=== PATIENT | male | born 1965 | race Caucasian/White ===

== ENCOUNTER → 2017-05-11 13:22 | Day surgery (SDC) | payer BC, MEDICARE, SELFPAY ==
[2017-05-11 13:44] VITALS: BP 161/77; PULSE 81; RESP 18; TEMP 36.5; O2SAT 98; BMI 43.9
[2017-05-11 14:15] VITALS: BP 164/67; PULSE 66; RESP 18; O2SAT 97
[2017-05-11 14:18] VITALS: BP 161/77; PULSE 71; RESP 16; O2SAT 94
--- NOTE | 2017-05-11 14:34 | HMH.PMPROC ---
- Procedure Date: 05/11/17 Time: 14:34 Anesthesiologist:: Stone Cabello MD Complications:: None Pre-procedure Diagnosis:: Degenerative disc disease of lumbar spine with lumbar radiculopathy symptoms and postlaminectomy syndrome lumbar spine Post-procedure Diagnosis:: Same Indications for Procedure:: This patient is a pleasant 51-year-old white male who we are treating for low back pain with lumbar radiculopathy symptoms and postlaminectomy syndrome lumbar spine. He is still awaiting spinal cord stimulator placement by Dr. Broussard. Other than this he is having some increasing pain with cold weather however he is very happy with his intrathecal pain pump. We will increase him to 2.25 mg per day from 2 mg per day. He does have a normal gait. Motor strength of the lower extremities is 5/5. There is no gross sensory deficit. We will refill his pump and again increase him to 2.25 mg per day from 2 mg per day. Procedure Details:: Intrathecal pain pump refill under fluoroscopy Informed consent was obtained and the risks and benefits of the procedure was explained to the patient. The patient was taken to the procedure room. The pump was interrogated. The area over the pump was prepped using ChloraPrep. The pump was accessed with a 22-gauge needle using fluoroscopic guidance. Approximately 10 mL's of the intrathecal solution was withdrawn and discarded. The pump was then refilled with 20 mL's of intrathecal morphine 25 mg per ml. The pump was interrogated and the infusion was increased to 2.25 mg per day. . The patient tolerated the procedure well with no complication. Plan and Disposition:: We will follow-up with him at his next pump refill. If he has any problems or questions he is to call me back in the pain clinic.
[2017-05-11 14:40] VITALS: BP 181/87; PULSE 71; RESP 18; O2SAT 93
== END ==
PROVIDERS: Family Provider Family Medicine; PCP Family Medicine; Visit Provider Anesthesiology
DX: M51.16 Intervertebral disc disorders with radiculopathy, lumbar region (principal); M96.1 Postlaminectomy syndrome, not elsewhere classified
CPT/HCPCS: 62370

== ENCOUNTER → 2018-05-20 14:16 | Outpatient (CLI) | payer BC, MEDICARE, SELFPAY ==
--- NOTE | 2018-05-20 15:04 | MR_ITS ---
MR cervical spine wo con HISTORY: Neck pain with bilateral arm pain and numbness and tingling with headache ITS.REASON: CERVICAL PAIN ORDERING PHYSICIAN: Tiesha Green PATIENT AGE: 53 years Comparison: None TECHNIQUE: Standard multiplanar multiecho sequences are performed without contrast. FINDINGS: There is normal alignment. The craniocervical junction has an unremarkable appearance. The disc spaces are well-preserved. C2-C3, C3-C4, C4-C5, and C5-C6 have an unremarkable appearance. There is minimal bulging of the disc at C6-C7 level without any neural impingement. No disc herniation, canal stenosis or foraminal stenosis evident. IMPRESSION: Essentially negative MRI of the cervical spine
--- NOTE | 2018-05-20 15:18 | XR_ITS ---
XR abdomen min 2V HISTORY: ITS.REASON: MRI CLEARENCE ORDERING PHYSICIAN: Tiesha Green PATIENT AGE: 53 years COMPARISON: None FINDINGS: AP and lateral views the abdomen demonstrates reservoir in the left lower abdomen anteriorly representing a prominent with a catheter placed in the epidural region. The tip is above the L1 level. The top is not situated at a 90 degree angle to the longitudinal axis of the abdomen and therefore should be safe for MRI. There is also a neurostimulator device present right. There has been prior lumbar surgery with fusion at L4-L5 and S1. IMPRESSION: Pain pump present as described above which should be safe for MRI.
== END ==
PROVIDERS: PCP Family Medicine; Visit Provider Clinical Nurse Specialist Family Health
DX: Z01.818 Encounter for other preprocedural examination (principal); M54.2 Cervicalgia
CPT/HCPCS: 72141; 74019; 76376

== ENCOUNTER → 2018-07-30 09:08 | Outpatient (POV) | payer BC, MEDICARE, SELFPAY ==
[2018-07-30 09:23] VITALS: BP 181/88; PULSE 71; RESP 18; O2SAT 99; BMI 34.9
--- NOTE | 2018-07-30 09:31 | HMH.PAINSOAP ---
[facility] Pain Management SOAP Note Subjective:: Patient is a pleasant 53-year-old white male who presents today for follow-up. Patient having extreme left knee pain. Patient has tried and failed injective therapy. He is also had an arthroscopy. Patient is interested in options in regards to his knee. He would like to postpone any kind of surgery. He rates his pain a 7 out of 10 in his left knee. He states making it difficult for him to walk. Patient is continuing a home stretching program. ROS General: no recent weight change, no fever, no sleep disturbances Respiratory: no cough, no shortness of air, no recurring pulmonary infections Cardiovascular/Peripheral Vascular: No chest pain, No palpitations, no edema, no shortness of breath. Gastrointestinal: no incontinence, normal bowel movements reported Genitourinary: no incontinence Musculoskeletal: Back pain, hip pain, left knee pain Psychiatric: normal mood/ affect, Neurological: [denies weakness in extremities], [denies balance issues] Objective:: Physical Exam General: Alert and oriented x3, no acute distress, pleasant and cooperative, [on room air] Lungs: Resps E/U, Symmetrical chest expansion, Eyes: PERRL Musculoskeletal: Flexion and extension of lumbar spine somewhat guarded secondary to pain, deep tendon reflexes normal, strength in upper and lower extremities [5/5], [abnormal gait noted] crease range of motion left knee extreme tenderness on palpation Neurological: speech clear, well tester equal, no gross sensory deficits Assessment:: Degenerative disc disease lumbar spine with lumbar radiculopathy, left knee pain, osteoarthritis Plan:: We will set the patient up for a left geniculate block. I believe it would be beneficial for the patient. Patient has tried and failed intra-articular injections. Patient is wanting to postpone surgery as long as possible. He has had this pain for over a year and is failed over 6 months of conservative treatment for it. He is on anti-inflammatories. Dr. Cabello has reviewed this note and agrees with this plan of care. This note was dictated using voice recognition software and may contain errors or omissions
--- NOTE | 2018-07-30 09:35 | P.CONS_ITS ---
[facility] Pain Management SOAP Note Subjective:: Patient is a pleasant 53-year-old white male who presents today for follow-up. Patient having extreme left knee pain. Patient has tried and failed injective therapy. He is also had an arthroscopy. Patient is interested in options in regards to his knee. He would like to postpone any kind of surgery. He rates his pain a 7 out of 10 in his left knee. He states making it difficult for him to walk. Patient is continuing a home stretching program. ROS General: no recent weight change, no fever, no sleep disturbances Respiratory: no cough, no shortness of air, no recurring pulmonary infections Cardiovascular/Peripheral Vascular: No chest pain, No palpitations, no edema, no shortness of breath. Gastrointestinal: no incontinence, normal bowel movements reported Genitourinary: no incontinence Musculoskeletal: Back pain, hip pain, left knee pain Psychiatric: normal mood/ affect, Neurological: [denies weakness in extremities], [denies balance issues] Objective:: Physical Exam General: Alert and oriented x3, no acute distress, pleasant and cooperative, [on room air] Lungs: Resps E/U, Symmetrical chest expansion, Eyes: PERRL Musculoskeletal: Flexion and extension of lumbar spine somewhat guarded secondary to pain, deep tendon reflexes normal, strength in upper and lower extremities [5/5], [abnormal gait noted] crease range of motion left knee extreme tenderness on palpation Neurological: speech clear, 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 I believe it would be beneficial for the patient. Patient has tried and failed intra-articular injections. Patient is wanting to postpone surgery as long as possible. He has had this pain for over a year and is failed over 6 months of conservative treatment for it. He is on anti-inflammatories. Dr. Cabello has reviewed this note and agrees with this plan of care. This note was dictated using voice recognition software and may contain errors or omissions
== END ==
PROVIDERS: PCP Family Medicine; Visit Provider Clinical Nurse Specialist Family Health
DX: M51.16 Intervertebral disc disorders with radiculopathy, lumbar region (principal); M25.562 Pain in left knee; M19.90 Unspecified osteoarthritis, unspecified site
CPT/HCPCS: 99212

== ENCOUNTER → 2018-10-28 14:05 | Outpatient (POV) | payer BC, MEDICARE, SELFPAY ==
--- NOTE | 2018-10-28 14:42 | HMH.PAINSOAP ---
[facility] Pain Management SOAP Note Subjective:: Patient is a pleasant 53-year-old white male who presents today for follow-up. Patient is awaiting a left knee geniculate RFA. Patient had 90% relief of symptoms with a geniculate block. Pain is returning he is having severe pain in that knee rating it a 7 out of 10 today. He is tried and failed multiple therapies including steroid injections, intra-articular injections, physical therapy, home stretching program, anti-inflammatories. ROS General: no recent weight change, no fever, no sleep disturbances Respiratory: no cough, no shortness of air, no recurring pulmonary infections Cardiovascular/Peripheral Vascular: No chest pain, No palpitations, no edema, no shortness of breath. Gastrointestinal: no incontinence, normal bowel movements reported Genitourinary: no incontinence Musculoskeletal: Left knee pain Psychiatric: normal mood/ affect Neurological: [denies weakness in extremities], [denies balance issues] Objective:: Physical Exam General: Alert and oriented x3, no acute distress, pleasant and cooperative, [on room air] Lungs: Resps E/U, Symmetrical chest expansion, Eyes: PERRL Musculoskeletal: Flexion and extension left knee somewhat guarded secondary to pain, deep tendon reflexes normal, strength in upper and lower extremities [5/5], [abnormal gait noted] Neurological: speech clear, 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 We will also give him some samples of Voltaren gel for his knee. We will move forward with the RFA as soon as insurance approval allows. Dr. Cabello has reviewed this note and agrees with this plan of care. This note was dictated using voice recognition software and may contain errors or omissions
--- NOTE | 2018-10-28 14:46 | P.CONS_ITS ---
[facility] Pain Management SOAP Note Subjective:: Patient is a pleasant 53-year-old white male who presents today for follow-up. Patient is awaiting a left knee geniculate RFA. Patient had 90% relief of symptoms with a geniculate block. Pain is returning he is having severe pain in that knee rating it a 7 out of 10 today. He is tried and failed multiple therapies including steroid injections, intra-articular injections, physical therapy, home stretching program, anti-inflammatories. ROS General: no recent weight change, no fever, no sleep disturbances Respiratory: no cough, no shortness of air, no recurring pulmonary infections Cardiovascular/Peripheral Vascular: No chest pain, No palpitations, no edema, no shortness of breath. Gastrointestinal: no incontinence, normal bowel movements reported Genitourinary: no incontinence Musculoskeletal: Left knee pain Psychiatric: normal mood/ affect Neurological: [denies weakness in extremities], [denies balance issues] Objective:: Physical Exam General: Alert and oriented x3, no acute distress, pleasant and cooperative, [on room air] Lungs: Resps E/U, Symmetrical chest expansion, Eyes: PERRL Musculoskeletal: Flexion and extension left knee somewhat guarded secondary to pain, deep tendon reflexes normal, strength in upper and lower extremities [ 5/5], [abnormal gait noted] Neurological: speech clear, lgsw equal, no gross sensory deficits Assessment:: Left knee pain, osteoarthritis left knee Plan:: We will call in a Medrol Dosepak for the patient. We will also give him some samples of Voltaren gel for his knee. We will move forward with the RFA as soon as insurance approval allows. Dr. Cabello has reviewed this note and agrees with this plan of care. This note was dictated using voice recognition software and may contain errors or omissions
[2018-10-28 15:05] VITALS: BP 151/71; PULSE 76; RESP 18; O2SAT 98; BMI 33.0
== END ==
PROVIDERS: PCP Family Medicine; Visit Provider Clinical Nurse Specialist Family Health
DX: M17.12 Unilateral primary osteoarthritis, left knee (principal)
CPT/HCPCS: 99212

== ENCOUNTER → 2018-11-04 13:31 | Outpatient (POV) | payer BC, MEDICARE, SELFPAY ==
[2018-11-04 13:42] VITALS: BP 163/72; PULSE 95; RESP 20; O2SAT 98; BMI 33.7
--- NOTE | 2018-11-04 14:04 | HMH.PAINSOAP ---
[facility] Pain Management SOAP Note Subjective:: Patient is a pleasant 53-year-old white male who presents today for follow-up. Patient was awaiting a left knee geniculate RFA however he was denied due to his insurance deeming investigational. Patient has had 90% relief of symptoms with his geniculate block. He would like to repeat this. He does have an intrathecal pain pump and is doing well in regards to his low back pain however it is his knee that is most bothersome to him. He rates his pain today a 7 out of 10. He is utilizing Pennsaid and he states that that is beneficial. He is tried and failed multiple therapies including steroid injections, intra-articular injections, physical therapy, home stretching program, anti-inflammatories and medications. ROS General: no recent weight change, no fever, no sleep disturbances Respiratory: no cough, no shortness of air, no recurring pulmonary infections Cardiovascular/Peripheral Vascular: No chest pain, No palpitations, no edema, no shortness of breath. Gastrointestinal: no incontinence, normal bowel movements reported Genitourinary: no incontinence Musculoskeletal: Left knee pain Psychiatric: normal mood/ affect Neurological: [denies weakness in extremities], [denies balance issues] Objective:: Physical Exam General: Alert and oriented x3, no acute distress, pleasant and cooperative Lungs: Resps E/U, Symmetrical chest expansion, Eyes: PERRL Musculoskeletal: Flexion and extension of lumbar spine somewhat guarded secondary to pain, deep tendon reflexes normal, strength in upper and lower extremities [5/5], slightly antalgic gait noted, decreased range of motion left knee Neurological: speech clear, crook operator equal, no gross sensory deficits Assessment:: Left knee osteoarthritis, degenerative disc disease lumbar spine with lumbar radiculopathy Plan:: We will plan on a repeat left geniculate block given the efficacy of the first when I believe it would be beneficial. We will also continue the pen said on his left knee. If the patient does not get as much benefit from this block I do believe a orthopedic evaluation would be beneficial. Dr. Cabello has reviewed this note and agrees with this plan of care. This note was dictated using voice recognition software and may contain errors or omissions
--- NOTE | 2018-11-04 14:07 | P.CONS_ITS ---
[facility] Pain Management SOAP Note Subjective:: Patient is a pleasant 53-year-old white male who presents today for follow-up. Patient was awaiting a left knee geniculate RFA however he was denied due to his insurance deeming investigational. Patient has had 90% relief of symptoms with his geniculate block. He would like to repeat this. He does have an intrathecal pain pump and is doing well in regards to his low back pain however it is his knee that is most bothersome to him. He rates his pain today a 7 out of 10. He is utilizing Pennsaid and he states that that is beneficial. He is tried and failed multiple therapies including steroid injections, intra- articular injections, physical therapy, home stretching program, anti-inflammato britt and medications. ROS General: no recent weight change, no fever, no sleep disturbances Respiratory: no cough, no shortness of air, no recurring pulmonary infections Cardiovascular/Peripheral Vascular: No chest pain, No palpitations, no edema, no shortness of breath. Gastrointestinal: no incontinence, normal bowel movements reported Genitourinary: no incontinence Musculoskeletal: Left knee pain Psychiatric: normal mood/ affect Neurological: [denies weakness in extremities], [denies balance issues] Objective:: Physical Exam General: Alert and oriented x3, no acute distress, pleasant and cooperative Lungs: Resps E/U, Symmetrical chest expansion, Eyes: PERRL Musculoskeletal: Flexion and extension of lumbar spine somewhat guarded secondary to pain, deep tendon reflexes normal, strength in upper and lower extremities [5/5], slightly antalgic gait noted, decreased range of motion left knee Neurological: speech clear, housekeeper 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 We will also continue the pen said on his left knee. If the patient does not get as much benefit from this block I do believe a orthopedic evaluation would be beneficial. Dr. Cabello has reviewed this note and agrees with this plan of care. This note was dictated using voice recognition software and may contain errors or omissions
== END ==
PROVIDERS: PCP Family Medicine; Visit Provider Clinical Nurse Specialist Family Health
DX: M17.12 Unilateral primary osteoarthritis, left knee (principal); M51.16 Intervertebral disc disorders with radiculopathy, lumbar region
CPT/HCPCS: 99212

== ENCOUNTER → 2019-09-22 14:08 | Outpatient (POV) | payer BC, MEDICARE, SELFPAY ==
[2019-09-22 14:29] VITALS: BP 159/79; PULSE 98; RESP 18; TEMP 36.6; O2SAT 98; BMI 33.0
--- NOTE | 2019-09-22 15:09 | P.CONS_ITS ---
[facility] Pain Management SOAP Note Subjective:: Is a 54-year-old white male who presents today for discussion regards to his ongoing weakness of the bilateral lower extremities. Patient has difficulty standing and walking he finds himself having to lean over for relief. He has had lumbar surgery. He also has an intrathecal pain pump and a neurostimulator. He rates his pain 8 out of 10. He is unable to get a MRI. Patient and I discussed an epidurogram to help determine pathology. Patient and I did discuss briefly the mild procedure. ROS General: no recent weight change, no fever, no sleep disturbances Respiratory: no cough, no shortness of air, no recurring pulmonary infections Cardiovascular/Peripheral Vascular: No chest pain, No palpitations, no edema, no shortness of breath. Gastrointestinal: no new onset incontinence, normal bowel movements reported Genitourinary: no new onset incontinence Musculoskeletal: Back pain, leg pain Psychiatric: normal mood/ affect Neurological: Weakness in bilateral lower extremities while walking and standing, [denies new onset balance issues] Objective:: Physical Exam General: Alert and oriented x3, no acute distress, pleasant and cooperative, [on room air] Lungs: Resps E/U, Symmetrical chest expansion, Eyes: PERRL Musculoskeletal: Flexion and extension of lumbar spine somewhat guarded secondary to pain, deep tendon reflexes normal, strength in upper and lower extremities [5/5], [abnormal gait noted] Neurological: speech clear, medical staffing coordinator equal, no gross sensory deficits Assessment:: Degenerative disc disease lumbar spine lumbar radiculopathy, spinal stenosis with neurogenic claudication, postlaminectomy syndrome Plan:: We will set the patient up for a epidurogram to determine if he is a candidate for any spinal stenosis treatments that we offer. He is currently got an intrathecal pain pump and [employer] stimulator. He states both are working quite well. I will follow-up with him after his epidurogram reassess his symptoms at that time he has been instructed to call the office if he has any issues prior to next appointment. Dr. Cabello has reviewed this note and agrees with this plan of care. This note was dictated using voice recognition software and may contain errors or omissions [facility] History I have reviewed the patient's past medical history: Yes Medical History: Reports:: Diabetes Mellitus Type 2, Hyperlipidemia, Hypertension, Seizures Denies:: Cancer, Diabetes Mellitus Type 1, Internal Pacemaker, MRSA *Have you ever received a pneumonia vaccine?: Yes *Have you received a flu vaccine this season?: Yes Other Medical History: Denies: Blood Transfusion Reaction Other Surgeries: No: Pacemaker Amputation: No Fractures: No - *Social History Smoking Status: Former smoker Tobacco Type: cigarettes Alcohol Intake: never *Occupational Status:: other Housing: house Household Members: spouse *Travel in the last 8 weeks: None Family Hx:: Cancer, Diabetes, Heart Attack, Stroke
== END ==
PROVIDERS: PCP Family Medicine; Visit Provider Clinical Nurse Specialist Family Health
DX: M51.16 Intervertebral disc disorders with radiculopathy, lumbar region (principal); M48.062 Spinal stenosis, lumbar region with neurogenic claudication; M96.1 Postlaminectomy syndrome, not elsewhere classified
CPT/HCPCS: 99212

== ENCOUNTER 2019-10-03 09:47 | Day surgery (SDC) | payer BC, MEDICARE, SELFPAY ==
[2019-10-03 10:23] VITALS: BP 134/77; PULSE 98; RESP 18; TEMP 37; O2SAT 100; BMI 33.0
[2019-10-03 10:53] VITALS: BP 169/82; PULSE 95; RESP 18
[2019-10-03 10:54] VITALS: BP 168/89; PULSE 98; RESP 18; O2SAT 99
--- NOTE | 2019-10-03 11:02 | P.PCN_ITS ---
- Procedure Date: 10/03/19 Time: 11:02 Anesthesiologist:: Stone Cabello MD Complications:: None Pre-procedure Diagnosis:: Postlaminectomy syndrome lumbar spine with lumbar radiculopathy symptoms. Spinal stenosis with neurogenic claudication symptoms Post-procedure Diagnosis:: Same Indications for Procedure:: Patient is a pleasant 54-year-old white male who we are treating for low back p ain with lumbar radicular symptoms. He does have hardware in his lower lumbar area. He also has a spinal cord stimulator [employer] which is been put in by Dr. Broussard. He also has an intrathecal pain pump. He does well with his pain pump. His stimulator has not been reprogrammed in 2 years. He was doing very well up until recently where he now has some increasing pain down his legs while standing or walking and cannot walk very well. Procedure Details:: Informed consent was obtained and the risk and benefits of the procedure was explained to the patient. The patient was taken to the procedure room. The patient was placed prone on the procedure table. The patient was prepped and draped in sterile fashion. C-arm fluoroscopy was used to view the lumbar spine. Skin and subcutaneous tissues were anesthetized using lidocaine. I placed an 18-gauge epidural needle and advanced into the L2-L3 interspace using fluoroscopic guidance and [id number] to air. After confirmation of needle placement in the epidural space with dye I injected 2 mL of lidocaine 1.5% with Depo-Medrol 80 mg. Patient tolerated the procedure well with no complications. Plan and Disposition:: We did do an epidurogram and he is not a candidate for minimally invasive lumbar decompression because of his previous surgery, hardware and disruption of the lamina. He also has spinal cord stimulator in place as well as intrathecal pain pump which would make it difficult to perform the procedure. Since he has not had his stimulator reprogrammed and over 2 years I believe he would benefit from reprogram his stimulator along with epidural steroid injections to help him with his pain symptoms and neurogenic claudication symptoms.
[2019-10-03 11:05] VITALS: BP 152/87; PULSE 89; RESP 18; O2SAT 100
== END 2019-10-03 11:05 | disposition home or self-care (01) ==
LOC: SC.PAINP 09:50
PROVIDERS: PCP Family Medicine; Visit Provider Anesthesiology
DX: M96.1 Postlaminectomy syndrome, not elsewhere classified (principal); M54.16 Radiculopathy, lumbar region; M48.062 Spinal stenosis, lumbar region with neurogenic claudication; I10 Essential (primary) hypertension; F41.9 Anxiety disorder, unspecified; F32.9 Major depressive disorder, single episode, unspecified; Z87.891 Personal history of nicotine dependence; Z96.652 Presence of left artificial knee joint; Z88.0 Allergy status to penicillin; Z79.82 Long term (current) use of aspirin; Z79.899 Other long term (current) drug therapy
CPT/HCPCS: 62323; J1040; Q9966

== ENCOUNTER 2019-10-20 13:09 | Day surgery (SDC) | payer BC, MEDICARE, SELFPAY ==
[2019-10-20 13:26] VITALS: BP 200/105; PULSE 76; RESP 18; TEMP 37; O2SAT 96; BMI 33.0
--- NOTE | 2019-10-20 13:34 | P.PCN_ITS ---
- Procedure Date: 10/20/19 Time: 13:34 Anesthesiologist:: Tiesha Green APRN Complications:: None Pre-procedure Diagnosis:: Degenerative disc disease lumbar spine lumbar radiculopathy postlaminectomy syndrome spinal stenosis with neurogenic claudication Post-procedure Diagnosis:: Same Indications for Procedure:: Patient is a pleasant 54-year-old white male who presents today for intrathecal pain pump refill and reprogram. He is also meeting today the [employer] environmental marketing representative for his neurostimulator reprogram. [facility] #[id number] reviewed and appropriate. Patient is getting a drug screen today. We will move forward with his intrathecal pain pump refill. He rates his pain today a 6 out of 10. Worse when standing and walking. Physical Exam General: Alert and oriented x3, no acute distress, pleasant and cooperative, [on room air] Lungs: Resps E/U, Symmetrical chest expansion, Eyes: PERRL Musculoskeletal: Flexion and extension of lumbar spine somewhat guarded secon roldan to pain, deep tendon reflexes normal, strength in upper and lower extremities [5/5], [abnormal gait noted] Neurological: speech clear, surgical corsetier equal, no gross sensory deficits Procedure Details:: Informed consent was obtained and the risk and benefits of the procedure were explained to the patient. The patient was taken to the procedure room where noninvasive monitoring was placed including noninvasive blood pressure cuff and pulse oximeter. Patient's pump was interrogated. The area over the pump was cleansed with chlorhexidine as a cleansing solution. In sterile fashion the pump was accessed with a 22-gauge needle. Approximately 10 mL's were removed of the pump solution and discarded appropriately. The pump was then refilled with 20 mL's of morphine 25 mg/mL. The needle was withdrawn and a bandage was placed over the puncture site. The infusion rate was reprogrammed to continue at 2.5 mg/day. The patient tolerated the procedure well. Plan and Disposition:: Patient is to be reprogrammed today by the [employer] environmental marketing representative for his neurostimulator. Follow-up with him at his next intrathecal pain pump refill and reprogram he has been instructed to call the office if he has any issues prior to his next appointment. Dr. Cabello has reviewed this note and agrees with this plan of care. This note was dictated using voice recognition software and may contain errors or omissions
[2019-10-20 13:44] VITALS: BP 165/98; PULSE 77; RESP 18
[2019-10-20 13:45] VITALS: BP 172/92; PULSE 71; RESP 18; O2SAT 99
[2019-10-20 14:11] VITALS: BP 170/90; PULSE 75; RESP 18; O2SAT 96
== END 2019-10-20 14:12 | disposition home or self-care (01) ==
LOC: SC.PAINP 13:17
PROVIDERS: PCP Family Medicine; Visit Provider Clinical Nurse Specialist Family Health
DX: M51.16 Intervertebral disc disorders with radiculopathy, lumbar region (principal); M96.1 Postlaminectomy syndrome, not elsewhere classified; M48.062 Spinal stenosis, lumbar region with neurogenic claudication; E78.5 Hyperlipidemia, unspecified; K21.9 Gastro-esophageal reflux disease without esophagitis; E03.9 Hypothyroidism, unspecified; Z88.0 Allergy status to penicillin; Z79.82 Long term (current) use of aspirin; Z79.899 Other long term (current) drug therapy
CPT/HCPCS: 95991

== ENCOUNTER 2020-02-02 12:59 | Day surgery (SDC) | payer BC, MEDICARE, SELFPAY ==
[2020-02-02 13:17] VITALS: BP 179/80; PULSE 77; RESP 18; TEMP 36.4; O2SAT 97; BMI 33.0
[2020-02-02 13:23] VITALS: BP 182/74; PULSE 80; RESP 18; O2SAT 98
[2020-02-02 13:37] VITALS: BP 175/88; PULSE 76; PULSE 77; RESP 18; O2SAT 98
--- NOTE | 2020-02-02 13:42 | P.PCN_ITS ---
- Procedure Date: 02/02/20 Time: 13:42 Anesthesiologist:: Tiesha Green APRN Complications:: None Pre-procedure Diagnosis:: Degenerative disc disease lumbar spine lumbar radiculopathy postlaminectomy syndrome and spinal stenosis with neurogenic claudication Post-procedure Diagnosis:: Same Indications for Procedure:: Patient is a pleasant 54-year-old white male who presents today for intrathecal pain pump refill and reprogram. Patient also has a neurostimulator. Dlalas #[id number] appropriate. Patient has had appropriate drug screens. He rates his pain today a 5 out of 10. 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 The patient was taken to the procedure room where noninvasive monitoring was placed including noninvasive blood pressure cuff and pulse oximeter. Patient's pump was interrogated. The area over the pump was cleansed with chlorhexidine as a cleansing solution. In sterile fashion the pump was accessed with a 22-gauge needle. Approximately 10 mL's were removed of the pump solution and discarded appropriately. The pump was then refilled with 20 mL's of morphine 25 mg/mL. The needle was withdrawn and a bandage was placed over the puncture site. The infusion rate was reprogrammed to continued at 2.5 mg/day. The patient tolerated the procedure well. Plan and Disposition:: he would also like to move forward with lumbar epidural steroid injections. He has had this in the past with good relief. He is not on any anticoagulation therapy. I will follow-up with him after this reassess his symptoms at that time he has been instructed to call the office if he has any issues prior to his next appointment. Dr. Cabello has reviewed this note and agrees with this plan of care. This note was dictated using voice recognition software and may contain errors or omissions
[2020-02-02 13:53] VITALS: BP 158/81; PULSE 79; RESP 18; O2SAT 97
== END 2020-02-02 13:54 | disposition home or self-care (01) ==
LOC: SC.PAINP 13:02
PROVIDERS: PCP Family Medicine; Visit Provider Clinical Nurse Specialist Family Health
DX: M48.062 Spinal stenosis, lumbar region with neurogenic claudication (principal); M51.16 Intervertebral disc disorders with radiculopathy, lumbar region; M96.1 Postlaminectomy syndrome, not elsewhere classified; Z45.1 Encounter for adjustment and management of infusion pump; I10 Essential (primary) hypertension; K21.9 Gastro-esophageal reflux disease without esophagitis; E07.9 Disorder of thyroid, unspecified
CPT/HCPCS: 95991

== ENCOUNTER 2020-04-09 05:41 | Emergency (ER) | payer BC, MEDICARE, SELFPAY ==
[2020-04-09 05:42] VITALS: BP 174/82; PULSE 74; RESP 16; TEMP 37.6; O2SAT 96; BMI 35.4
--- NOTE | 2020-04-09 05:58 | HMH.EDGENADL ---
ED Disposition Condition on Discharge: Good - Critical Care Critical Care Time: No <ShantegiselleKody - Last Filed: 04/09/20 08:07> <Phillip Mcnair - Last Filed: 04/09/20 10:12> Clinical Impression: Taste sense altered, Confusion Abdominal pain Qualifiers: Abdominal location: generalized Qualified Code(s): R10.84 - Generalized abdominal pain Diarrhea Qualifiers: Diarrhea type: unspecified type Qualified Code(s): R19.7 - Diarrhea, unspecified Disposition: Still a Patient Prescriptions: Oxycodone HCl/Acetaminophen [Percocet 10-325 mg Tablet] 1 tab PO Q4H PRN #40 tab PRN Reason: Mild To Moderate Pain [id number] diaze[facility] [Valium 5mg tablets] 5 mg PO TID PRN #20 tablet PRN Reason: Anxiety Transmission Status: Received by [id number] Referrals: Ronn Garcia [Primary Care Provider] - Attestation: On 04/09/20, the high probability of a clinically significant, sudden or life threatening deterioration of the following system(s) required my full and direct attention, intervention and personal management. The time I documented below is in addition to time spent performing reported procedures but includes the following listed in this critical care notation. Medical Decision Making - Medical Records Medical records reviewed: Yes: I reviewed the patient's medical records. MR Comment: The patient's last pain management visit was 02/04/2020, at which time he had his intrathecal pain pump refilled. - [place] Inquiry Pt receiving controlled substance: No - Lab Data Result diagrams: 04/09/20 06:13 04/09/20 06:13 - Radiology Data #1 Image(s): Chest Image Reviewed: Yes I reviewed the patient's radiology image Preliminary Findings: Normal/NAD - Physician Consults Physician Consulted: Bux Time: 07:17 Reason -: Pt condition, Other (Pain Mgmt) Comment/Response: States the only time he has seen patients with pain pumps get metallic taste in the mouth is if they are in withdrawal. He does not think the pump should leak for any reason and patient is not due for pump refill until May. Agrees with [employer] rep checking the pump. Also suggest that the patient be given a dose of pain medicine here to see if his symptoms improve, which would support withdrawal. <Kody Boggs - Last Filed: 04/09/20 08:07> - Lab Data Result diagrams: 04/09/20 06:13 04/09/20 06:13 <Phillip Mcnair - Last Filed: 04/09/20 10:12> Vital Signs: 04/09/20 05:42 04/09/20 06:00 04/09/20 06:30 Temperature 99.6 F Temperature Source Oral Pulse Rate [Left Radial] 74 97 H 94 H Respiratory Rate 16 14 12 Blood Pressure [Right Arm] 174/82 H 175/95 H 174/89 H Blood Pressure Mean [Right Arm] 112 121 117 Blood Pressure Source [Right Arm] Automatic Cuff Automatic Cuff Automatic Cuff Blood Pressure Position [Right Arm] Sitting Supine Supine 02 Sat by Pulse Oximetry 96 97 97 Oxygen Delivery Method Room Air Room Air Room Air 04/09/20 07:53 04/09/20 08:56 Temperature Temperature Source Pulse Rate [Left Radial] 76 76 Respiratory Rate 18 18 Blood Pressure [Right Arm] 154/66 H 161/81 H Blood Pressure Mean [Right Arm] 95 107 Blood Pressure Source [Right Arm] Automatic Cuff Automatic Cuff Blood Pressure Position [Right Arm] Sitting Sitting 02 Sat by Pulse Oximetry 96 97 Oxygen Delivery Method - Lab Data Lab Results 04/09/20 06:13: Urine Color Yellow, Urine Appearance Clear, Urine pH 8.5, Ur Specific [place] 1.015, Urine Protein Negative, Urine Glucose (UA) Negative, Urine Ketones Negative, Urine Blood Negative, Urine Nitrate Negative, Urine Bilirubin Negative, Urine Urobilinogen 0.2, Ur Leukocyte Esterase Negative, Urine WBC Occasional 04/09/20 06:13: WBC 8.3, RBC 4.88, Hgb 13.8 L, Hct 42.5, MCV 87.0, MCH 28.3, MCHC 32.5, RDW 15.5, Plt Count 281, MPV 7.4, Neut % (Auto) 81.1 H, Lymph % (Auto) 14.4, [place] % (Auto) 3.4, Eos % (Auto) 0.7, Baso % (Auto) 0.4, Neut # (Auto) 6.7,
[2020-04-09 06:00] VITALS: BP 175/95; PULSE 97; RESP 14; O2SAT 97
--- NOTE | 2020-04-09 06:17 | XR_ITS ---
PROCEDURE: XR CHEST PORTABLE Referring Doctor: NimaKody vasques Patient Age:55Y CLINICAL HISTORY: AMS Altered mental status. Abdominal pain. Pain at pump COMPARISON: CT CT ABDOMEN PELVIS W CON from 04/09/2020 FINDINGS: AP portable upright chest no previous chest films for comparison The lungs are well expanded and clear with nothing definitely acute.. Mild chronic changes bilaterally. Underlying emphysematous changes with scattered blebs as seen best on CT abdomen which includes lung bases today Heart upper normal in size borderline cardiomegaly. Upper normal point vascularity.. Kathi and mediastinal structures satisfactory. The lungs are clear. No consolidation, suspicious nodules, or pleural effusions.. No acute bony abnormalities. Neurostimulator device noted mid to lower T-spine posterior to T7-8-9 level at T-spine IMPRESSION: Nothing definitely acute. Upper normal pulmonary vascularity. Heart upper normal size/borderline cardiomegaly on this AP chest Dictated by: Orlando Echevarria MD 04/09/2020 09:48 Orlando Echevarria MD in [place] 04/09/2020 09:48
--- NOTE | 2020-04-09 06:18 | PC.NURSE ---
attempted to page Dr. Cabello. Elza in registration stated that she only has an office number for Dr. Cabello and not a call/ home number to reach him.
--- NOTE | 2020-04-09 06:20 | CT_ITS ---
PROCEDURE: CT HEAD/BRAIN WO CON Referring Doctor: Kody Boggs Patient Age:55Y CLINICAL INDICATION: AMS. Memory loss Altered mental status COMPARISON: CT CT ABDOMEN PELVIS W CON from 04/09/2020 TECHNIQUE: The patient was was active/moving and thus a Helical/spiral CT head performed with axial sagittal and coronal reconstructions on CT workstation. [address] scans at the facility use one or more dose reduction, viz: automated exposure control, ma/kV adjustment per patient size (including targeted exams where dose is matched to indication, i.e. head), or iterative reconstruction technique. FINDINGS: No acute intracranial findings. No intracranial hemorrhage. No territorial infarct but no extra-axial or subdural collection. . There is diffuse cerebral atrophy. Very subtle low-density and deep white matter cerebral hemispheres of suggestive of minor chronic small vessel deep white-matter ischemic gliotic changes with these features slightly more evident the anterior left cerebral hemisphere. No hydrocephalus.The ventricles and basal cisterns appear clear and satisfactory. No mass or midline shift nor mass effect. No subdural or extra-axial fluid collection is evident. Posterior fossa unremarkable.. Normal cranial cervical junction region. Sella normal size in appearance Skull intact-satisfactory. Scalp unremarkable. Nomastoid effusions. Mastoid air cells are well developed and clear. Middle ear clear. IAC's symmetric. Nosinus air-fluid level. Visualized portions of the paranasal sinuses and orbits unremarkable. IMPRESSION: No acute intracranial findings No hemorrhage nor mass lesion or acute infarct evident Mild cerebral atrophy. Suggestion of subtle chronic small vessel deep white-matter ischemic gliotic changes, slightly more evident at left cerebral hemisphere. Dictated by: Orlando Echevarria MD 04/09/2020 09:43 Orlando Echevarria MD in [place] 04/09/2020 09:43
--- NOTE | 2020-04-09 06:20 | CT_ITS ---
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 All CT scans at the facility use one or more dose reduction, viz: automated exposure control, ma/kV adjustment per patient size (including targeted exams where dose is matched to indication, i.e. head), or iterative reconstruction technique. FINDINGS: Lower thorax: No acute finding ABDOMEN: Liver: No masses or biliary dilatation. Fatty changes throughout liver Gallbladder: Nondistended. No definitive radio opaque stones. There is a small tiara of density seen towards the neck of gallbladder axial image 40 which could reflect tiny stone or sludge. Common duct normal Pancreas: No masses or peripancreatic fluid collections. Spleen: Upper normal size. 12.5 cm in length. There is a heterogeneous area posterior aspect of the spleen which is curious. Axial image 27. In conjunction with the low-density area at the liver a could reflect a splenic infarct.. Small underlying cyst or old infarct considered. No history nor CT evidence of significant trauma thus unlikely small splenic laceration. However pain should the progress it in this region of follow-up CT would be a recommended Adrenals: unremarkable ---- tract Right kidney normal unremarkable Left kidney. Area of decreased density extending to lateral periphery mid left kidney.. Given its somewhat wedge-shaped reflect a small focal area of decreased perfusion and small infarct; although of versus is a debris-filled cyst in this you could yield similar appearance,. This area measure up to 2.5 cm.. Minimal vascular calcifications left renal artery. ureters: Unremarkable Bladder: Upper normal wall thickness anteriorly; normal sized prostate . Appendix: Unremarkable. No period. ABDOMEN & PELVIS: Stomach bowel: Nondistended. No obvious mass or significant thickening. Large bowel: Scattered diverticula most evident at sigmoid colon but no diverticulitis Appendix normal terminal ileum unremarkable Peritoneum: No abnormal fluid collections. No obvious inflammatory changes. No free air. Lymph nodes: No enlarged lymph nodes apparent. Vasculature: Diffuse moderate atherosclerotic calcification aorta and iliacs. No aneurysmal dilatation.. Bones: No acute fracture or lesion. Posterior spinal fusion with bilateral pedicle screws and posterior rods at L4-L5-S1 with associated laminectomy through the L4/5-L5/S1 the levels. The metallic elements yield prominent streak artifact limit visualization but I would note exuberant facet hypertrophy a at at L3/4 yielding and a moderate spinal stenosis this level.. There are 2 pain control devices with the epidural leads extending into the thoracic spine. The larger devices projected over the left iliac crest and a smaller device overlying the back at approximate L2/3 level IMPRESSION: 1..Left kidney: Wedge-shaped low-density area extends to the midportion left kidney may reflect a small infarct. 2..Spleen--inhomogeneous area posteriorly which could also reflect a small infarct, with other possibilities discussed in text. If persistent/progressive pain in this area follow-up CT suggested particularly if there has been trauma (This feature was not mentioned on [facility] report) 3..Gallbladder. Tiara of density at neck of gallbladder could reflect tiny stone. 4..No additional acute findings otherwise abdomen or pelvis 5..
[2020-04-09 06:25] LABS: Microscopic, Urine URINE MICROSCOPIC (MICROSCOPIC)
[2020-04-09 06:28] LABS: Basophils % 0.4 % (0.1-2.0); Eosinophils # 0.1 K/mm3 (0.0-0.4); Eosinophils % 0.7 % (0.1-12.0); Hematocrit 42.5 % (42.0-52.0); Hemoglobin 13.8 g/dL (14.1-18.0); Lymphocytes # 1.2 K/mm3 (0.7-4.5); Lymphocytes % 14.4 % (10-50); Mean Corpuscular HGB Conc 32.5 g/dL (31.8-35.4); Mean Corpuscular Hemoglobin 28.3 pg (27.0-31.2); Mean Platelet Volume 7.4 fl (7.4-10.4); Monocytes # 0.3 K/mm3 (0.1-1.0); Monocytes % 3.4 % (1.7-9.3); Neutrophils # 6.7 K/mm3 (1.8-7.8); Neutrophils % 81.1 % (37.0-80.0); Platelet Count 281 K/mm3 (142-424); Red Blood Count 4.88 M/mm3 (4.60-6.20); Red Cell Distribution Width 15.5 % (11.5-17.5); White Blood Count 8.3 K/mm3 (4.8-10.8)
[2020-04-09 06:30] VITALS: BP 174/89; PULSE 94; RESP 12; O2SAT 97
--- NOTE | 2020-04-09 06:31 | PC.NURSE ---
this nurse paged [employer] per pts and MD request. spoke with [employer] who stated they would put a page out for their local credit resolution representative to come service the device and if we didnt hear back from them in an hour to call back for a follow up page
[2020-04-09 06:32] LABS: Chloride 102 mmol/L (98-107); Sodium 140 mmol/L (136-145)
--- NOTE | 2020-04-09 06:32 | PC.NURSE ---
Pt ambulated to bathroom with standby assist. No bm at this time.
[2020-04-09 06:33] LABS: Appearance,Urine CLEAR (Clear); Bilirubin,Urine Negative (Negative); Blood, Urine Negative (Negative); Color,Urine YELLOW (Yellow); Glucose,Urine (UA) Negative (Negative); Ketones,Urine Negative (Negative); Leukocyte Esterase,Urine Negative (Negative); Nitrate,Urine Negative (Negative); PH,Urine 8.5 (5.0-8.5); Potassium 4.1 mmoL/L (3.5-5.1); Protein,Urine Negative (Negative); Specific Gravity, Urine 1.015 (1.005-1.030); Urobilinogen,Urine 0.2 EU/dl (0.2)
[2020-04-09 06:35] LABS: Alanine Aminotransferase 67 U/L (12-78); Albumin Level 4.7 g/dl (3.5-5.0); Albumin/Globulin Ratio 1.2 (1.1-1.8); Alkaline Phosphatase 98 U/L (38-126); Anion Gap 14.1 mEq/L (5-15); Aspartate Amino Transferase 75 U/L (17-59); Bilirubin,Total 0.8 mg/dl (0.2-1.3); Blood Urea Nitrogen 9 mg/dl (9-20); Calcium 10.2 mg/dl (8.4-10.2); Carbon Dioxide 28 mmol/L (22.0-30.0); Creatinine Clearance Estimated 209 mL/min (50-200); Estimated Glomerular Filt Rate 139 ml/min (>60); GFR (African American) 168 ML/MIN (>60); Globulin 3.8 g/dL (1.3-3.2); Glucose 223 mg/dl (74-100); Lipase 73 U/L (23-300); Total Protein,Serum 8.5 g/dl (6.3-8.2)
--- NOTE | 2020-04-09 06:36 | ECG_ITS ---
APPROVED REPORT Exam: Resting ECG HR:68 bpm ECG Measurements Heart Rate 68 AXES FL 174 P 72 QRSd 102 QRS 65 QT 388 T 18 QTc 412 Conclusion Normal sinus rhythm Normal ECG Electronically signed by : Ranjit Cade, 04/09/2020 19:35:13
[2020-04-09 06:40] LABS: Ethyl Alcohol < 10 mg/dl (0-10)
[2020-04-09 06:42] LABS: WBC,Urine Occasional #/hpf (0-3)
[2020-04-09 06:43] LABS: Barbiturates Screen,Urine Negative ng/ml (<200)
[2020-04-09 06:44] LABS: Amphetamine/Metha Screen,Urine Negative ng/ml (<1000); Benzodiazepines Screen,Urine Negative ng/ml (<200)
[2020-04-09 06:45] LABS: Cannabinoid Screen,Urine Negative ng/ml (<50)
[2020-04-09 06:46] LABS: Cocaine Screen,Urine Negative ng/ml (<300); Methadone Screen,Urine Negative ng/ml (<300)
[2020-04-09 06:47] LABS: Opiate Screen,Urine Positive ng/ml (<300)
[2020-04-09 06:48] LABS: Phencyclidine Screen,Urine Negative ng/ml (<25)
[2020-04-09 06:51] LABS: Troponin I < 0.01 ng/ml (0.00-0.034)
[2020-04-09 06:53] LABS: Coronavirus 19 IgG Antibody Negative (Negative); Coronavirus 19 IgM Antibody Negative (Negative)
--- NOTE | 2020-04-09 06:54 | PC.NURSE ---
pt to RAD
[2020-04-09 07:00] LABS: Lactic Acid 1.7 mmol/L (0.7-2.1)
--- NOTE | 2020-04-09 07:05 | PC.NURSE ---
speaking with Dr. Cabello
[2020-04-09 07:06] LABS: Thyroid Stimulating Hormone 0.49 uIU/mL (0.465-4.68)
--- NOTE | 2020-04-09 07:41 | PC.NURSE ---
rep. from [employer] returned call, she will call a rep. to come interrogate pain pump
[2020-04-09 07:53] VITALS: BP 154/66; PULSE 76; RESP 18; O2SAT 96
--- NOTE | 2020-04-09 07:57 | PC.NURSE ---
pt denies any change in symptoms with medications given
--- NOTE | 2020-04-09 08:52 | PC.NURSE ---
dr hina denney office at pt bedside
[2020-04-09 08:56] VITALS: BP 161/81; PULSE 76; RESP 18; O2SAT 97
--- NOTE | 2020-04-09 09:31 | PC.NURSE ---
sabrina from dr. santamaria office called, stating the [employer] rep is on their way to the hospital now.
--- NOTE | 2020-04-09 09:42 | PC.NURSE ---
PT C/O INCREASING PAIN. PT AND UPSET DUE TO PT'S LACK OF PAIN CONTROL AND WAIT TIME
--- NOTE | 2020-04-09 10:25 | PC.NURSE ---
[employer] AT BEDSIDE
[2020-04-09 10:31] LABS: Adenovirus F 40/41, stool Not Detected (NotDetected); Astrovirus Not Detected (NotDetected); Campylobacter Not Detected (NotDetected); Clostridium Difficile A/B, PCR Not Detected (NotDetected); Cryptosporidium Not Detected (NotDetected); Cyclospora Cayetanesis Not Detected (NotDetected); Entamoeba histolytica Not Detected (NotDetected); Enteroaggregative E coli Not Detected (NotDetected); Enteropathogenic E coli Not Detected (NotDetected); Enterotoxigenic E coli Not Detected (NotDetected); Giardia lamblia Not Detected (NotDetected); Norovirus Not Detected (NotDetected); Plesimonas Shigalloides, PCR Not Detected (NotDetected); Rotavirus A Not Detected (NotDetected); Salmonella, PCR Not Detected (NotDetected); Sapovirus Not Detected (NotDetected); Shiga-like toxin E coli Not Detected (NotDetected); Shigella Enterovasive E coli Not Detected (NotDetected); Vibrio Cholerae Not Detected (NotDetected); Vibrio, PCR Not Detected (NotDetected); Yersinia Entercolitica, PCR Not Detected (NotDetected)
[2020-04-09 10:48] LABS: Troponin I < 0.01 ng/ml (0.00-0.034)
[2020-04-09 10:55] VITALS: BP 154/98; PULSE 78; RESP 18; TEMP 36.6; O2SAT 98
[2020-04-12 06:54] LABS: POC Glucose,Bedside 202 (70-110)
== END 2020-04-09 10:57 | disposition still patient (30) ==
PROVIDERS: Emergency Provider Emergency Medicine; PCP Family Medicine
DX: R10.84 Generalized abdominal pain (principal); R41.0 Disorientation, unspecified; R43.2 Parageusia; R19.7 Diarrhea, unspecified; M54.5 Low back pain; Z01.84 Encounter for antibody response examination; E03.9 Hypothyroidism, unspecified; E78.5 Hyperlipidemia, unspecified; I10 Essential (primary) hypertension; Z88.0 Allergy status to penicillin; Z87.891 Personal history of nicotine dependence; Z79.899 Other long term (current) drug therapy
CPT/HCPCS: 36415; 70450; 71045; 74177; 80053; 80305; 81001; 82962; 83605; 83690; 84443; 84484; 85025; 86328; 87040; 87506; 93005; 96374; 96375; 99284; J2405; Q9967

== ENCOUNTER → 2020-04-23 09:27 | Outpatient (POV) | payer BC, MEDICARE, SELFPAY ==
--- NOTE | 2020-04-23 10:16 | PC.NURSE ---
0959-pt transfered to ER via w/c for c/o chest pain and left arm pain. accompanied by nursing staff and spouse.
[2020-04-23 14:00] VITALS: BP 152/79; PULSE 97; RESP 18; TEMP 36.8; O2SAT 97
--- NOTE | 2020-04-23 14:52 | HMH.PMPROC ---
- Procedure Date: 04/23/20 Time: 14:53 Anesthesiologist:: Stone Cabello MD Complications:: None Pre-procedure Diagnosis:: Postlaminectomy syndrome lumbar spine with lumbar radiculopathy symptoms with newly placed intrathecal pain pump Post-procedure Diagnosis:: Same Indications for Procedure:: Patient is a pleasant 55-year-old white male who we are treating for low back pain with lumbar radiculopathy symptoms and postlaminectomy syndrome lumbar spine. Patient has a nonfunctioning intrathecal [employer] pain pump system. This was replaced yesterday with a [employer] pain pump system. Patient still is having some withdrawal type symptoms. We will increase his intrathecal morphine infusion today. We will also increase his PTC boluses. Patient did have chest pain when he came in this morning. He was evaluated and cleared by the emergency room. Procedure Details:: Informed consent was obtained and the risk and benefits of the procedure was explained to the patient. Patient was taken to the procedure room. The pump was interrogated. Intrathecal morphine infusion was increased to 2 mg/day. PTC boluses were increased to 0.5 mg up to 4 times a day. Patient tolerated the procedure well with no complications. Plan and Disposition:: We will follow-up with this patient in 1 week. Will reevaluate his symptoms and make further adjustments if needed.
== END ==
PROVIDERS: PCP Family Medicine; Visit Provider Anesthesiology
DX: M96.1 Postlaminectomy syndrome, not elsewhere classified (principal); M54.16 Radiculopathy, lumbar region; Z96.9 Presence of functional implant, unspecified; Z88.0 Allergy status to penicillin; Z79.82 Long term (current) use of aspirin; Z79.899 Other long term (current) drug therapy
CPT/HCPCS: 62368

== ENCOUNTER 2020-04-23 10:01 | Emergency (ER) | payer BC, MEDICARE, SELFPAY ==
[2020-04-23] VITALS (9 sets, daily range): BP systolic 130–167; BP diastolic 69–93; PULSE 84–120; RESP 11–19; TEMP 36.8; O2SAT 94–100; BMI 30.1
--- NOTE | 2020-04-23 10:01 | ECG_ITS ---
APPROVED REPORT Exam: Resting ECG HR:92 bpm ECG Measurements Heart Rate 92 AXES MS 174 P 67 QRSd 102 QRS -47 QT 370 T 22 QTc 457 Conclusion Normal sinus rhythm Left axis deviation old isolated q in iii old late r wave progression Abnormal ECG Electronically signed by : Ranjit Cade, 04/23/2020 16:34:33
--- NOTE | 2020-04-23 10:07 | XR_ITS ---
PROCEDURE: XR CHEST 2V CLINICAL HISTORY: pain COMPARISON: CT CT ABDOMEN PELVIS W CON from 04/09/2020 CR XR CHEST PORTABLE from 04/09/2020 FINDINGS: The cardiomediastinal silhouette and pulmonary vascularity are within normal limits. COPD changes. No lobar consolidation or collapse. There is an epidural stimulator device over the midthoracic spine. No acute bony abnormalities. IMPRESSION: COPD. No change with no acute finding Dictated by: Kristian Cuevas MD 04/23/2020 10:35 Kristian Cuevas MD in [place] 04/23/2020 10:35
--- NOTE | 2020-04-23 10:11 | PC.NURSE ---
Patient states he was told not to take aspirin due to the procedure he had performed last date. ISABELLE Taveras calling to speak with physician who inserted the pain pump.
--- NOTE | 2020-04-23 10:12 | HMH.EDCP ---
ED Disposition Clinical Impression: Chest pain, non-cardiac Disposition: Home, Self-Care Condition on Discharge: Good Referrals: Ronn Garcia [Primary Care Provider] - 3 days - Critical Care Critical Care Time: No Attestation: On 04/23/20, the high probability of a clinically significant, sudden or life threatening deterioration of the following system(s) required my full and direct attention, intervention and personal management. The time I documented below is in addition to time spent performing reported procedures but includes the following listed in this critical care notation. Medical Decision Making - [place] Inquiry Pt receiving controlled substance: No [place] was queried for this patient: No Vital Signs: 04/23/20 10:01 04/23/20 10:20 04/23/20 10:31 Temperature 98.2 F Temperature Source Oral Pulse Rate [Left Radial] 93 H 120 H 96 H Respiratory Rate 15 13 19 Blood Pressure [Right Arm] 161/87 H 130/69 131/84 Blood Pressure Mean [Right Arm] 111 89 99 Blood Pressure Source [Right Arm] Automatic Cuff Automatic Cuff Automatic Cuff Blood Pressure Position [Right Arm] Sitting Sitting Sitting 02 Sat by Pulse Oximetry 95 95 94 L Oxygen Delivery Method Room Air Room Air Room Air 04/23/20 11:01 04/23/20 11:30 04/23/20 12:00 Temperature Temperature Source Pulse Rate [Left Radial] 90 88 90 Respiratory Rate 13 11 L Blood Pressure [Right Arm] 137/77 139/84 146/81 H Blood Pressure Mean [Right Arm] 97 102 102 Blood Pressure Source [Right Arm] Automatic Cuff Automatic Cuff Automatic Cuff Blood Pressure Position [Right Arm] Sitting Sitting Sitting 02 Sat by Pulse Oximetry 100 98 98 Oxygen Delivery Method Room Air Room Air Room Air 04/23/20 12:30 Temperature Temperature Source Pulse Rate [Left Radial] 84 Respiratory Rate 18 Blood Pressure [Right Arm] 160/91 H Blood Pressure Mean [Right Arm] 114 Blood Pressure Source [Right Arm] Automatic Cuff Blood Pressure Position [Right Arm] Sitting 02 Sat by Pulse Oximetry 95 Oxygen Delivery Method Room Air - Lab Data Lab Results 04/23/20 10:05: WBC 12.9 H, RBC 5.07, Hgb 14.5, Hct 43.8, MCV 86.3, MCH 28.6, MCHC 33.1, RDW 15.7, Plt Count 381, MPV 7.8, Neut % (Auto) 72.9, Lymph % (Auto) 19.6, [place] % (Auto) 6.8, Eos % (Auto) 0.3, Baso % (Auto) 0.3, Neut # (Auto) 9.4 H, Lymph # (Auto) 2.5, [place] # (Auto) 0.9, Eos # (Auto) 0.0, Baso # (Auto) 0.0 04/23/20 10:05: Sodium 138, Potassium 4.0, Chloride 98, Carbon Dioxide 29, Anion Gap 15.0, BUN 12, Creatinine 0.70, Estimated Creat Clear 157, Estimated GFR 116, Est GFR ( Amer) 141, Glucose 196 H, Calcium 10.4 H, Troponin I < 0.01 04/23/20 10:05: Lipase 169 04/23/20 12:12: Troponin I < 0.01 Result diagrams: 04/23/20 10:05 04/23/20 10:05 Orders (Tests/Meds): ED MEDICATIONS Generic Name Dose Route Start Last Admin Trade Name Freq PRN Reason Stop Dose Admin Nitroglycerin 0.4 mg 04/23/20 10:07 04/23/20 10:15 Nitroglycerin 0.4mg Sl Tablet SL 05/23/20 10:06 0.4 mg Q5MINP PRN Administration Chest Pain Discontinued Medications Generic Name Dose Route Start Last Admin Trade Name Freq PRN Reason Stop Dose Admin Aspirin 324 mg 04/23/20 10:07 04/23/20 10:37 Aspirin 81mg Chewable Tablet PO 04/23/20 10:08 324 mg ONCE ONE Administration - ECG Data Tracing #1 Normal sinus rhythm, 90 bpm, no ST elevation or depression, no ectopy, normal intervals. Medical Decision Narrative: 55yo M evaluated for sudden onset left-sided chest pain with mild shortness of breath and nausea. EKG is unremarkable as above. Labs are pending at this time. Patient is in no acute distress on my initial evaluation. Differential diagnosis includes was not limited to: ACS/AZ, PE, pneumonia, GERD, pancreatitis, pneumothorax. 1200 Patient are very angry and stating they want to leave now because his chest pain has resolved. Given the patient's chest pain began once he was already in the hospita
--- NOTE | 2020-04-23 10:19 | PC.NURSE ---
contacted pain management per ER MD request r/t pt states pt was told to not take aspirin r/t surgery yesterday. Spoke with Codi in pain management who asked Dr. Cabello who states pt is okay to have aspirin
--- NOTE | 2020-04-23 10:20 | PC.NURSE ---
pt gone to rad. advised pt could have ASA.
[2020-04-23 10:21] LABS: Basophils % 0.3 % (0.1-2.0); Eosinophils % 0.3 % (0.1-12.0); Hematocrit 43.8 % (42.0-52.0); Hemoglobin 14.5 g/dL (14.1-18.0); Lymphocytes # 2.5 K/mm3 (0.7-4.5); Lymphocytes % 19.6 % (10-50); Mean Corpuscular HGB Conc 33.1 g/dL (31.8-35.4); Mean Corpuscular Hemoglobin 28.6 pg (27.0-31.2); Mean Corpuscular Volume 86.3 fl (80-94); Mean Platelet Volume 7.8 fl (7.4-10.4); Monocytes # 0.9 K/mm3 (0.1-1.0); Monocytes % 6.8 % (1.7-9.3); Neutrophils # 9.4 K/mm3 (1.8-7.8); Neutrophils % 72.9 % (37.0-80.0); Platelet Count 381 K/mm3 (142-424); Red Blood Count 5.07 M/mm3 (4.60-6.20); Red Cell Distribution Width 15.7 % (11.5-17.5); White Blood Count 12.9 K/mm3 (4.8-10.8)
[2020-04-23 10:31] LABS: Blood Urea Nitrogen 12 mg/dl (9-20); Calcium 10.4 mg/dl (8.4-10.2); Carbon Dioxide 29 mmol/L (22.0-30.0); Chloride 98 mmol/L (98-107); Creatinine Clearance Estimated 157 mL/min (50-200); Estimated Glomerular Filt Rate 116 ml/min (>60); GFR (African American) 141 ML/MIN (>60); Glucose 196 mg/dl (74-100); Sodium 138 mmol/L (136-145)
[2020-04-23 10:43] LABS: Troponin I < 0.01 ng/ml (0.00-0.034)
[2020-04-23 11:18] LABS: Lipase 169 U/L (23-300)
--- NOTE | 2020-04-23 11:25 | PC.NURSE ---
Pt came out of room stating her husbands chest pain has resolved and we need to get out of here and get back upstairs to see to Dr. Cabello that is why we came here today . notified ER
[2020-04-23 13:07] LABS: Troponin I < 0.01 ng/ml (0.00-0.034)
--- NOTE | 2020-04-23 13:31 | PC.NURSE ---
Codi in Pain management coming down to get patient post discharge to have his appt with pain management doc.
== END 2020-04-23 13:35 | disposition home or self-care (01) ==
PROVIDERS: Emergency Provider Family Medicine; PCP Family Medicine
DX: R07.9 Chest pain, unspecified (principal); E11.9 Type 2 diabetes mellitus without complications; E78.5 Hyperlipidemia, unspecified; I10 Essential (primary) hypertension; E03.9 Hypothyroidism, unspecified; Z87.891 Personal history of nicotine dependence; Z88.0 Allergy status to penicillin; Z79.899 Other long term (current) drug therapy
CPT/HCPCS: 71046; 80048; 83690; 84484; 85025; 93005; 99283

== ENCOUNTER → 2020-04-26 11:40 | Outpatient (POV) | payer BC, MEDICARE, SELFPAY ==
[2020-04-26 11:44] VITALS: BP 134/91; PULSE 100; RESP 18; TEMP 36.6; O2SAT 98; BMI 30.1
--- NOTE | 2020-04-26 12:21 | P.PCN_ITS ---
- Procedure Date: 04/26/20 Time: 12:21 Anesthesiologist:: Tiesha Green APRN Complications:: None Pre-procedure Diagnosis:: Degenerative disc disease lumbar spine with lumbar radiculopathy and postlaminectomy syndrome lumbar spine Post-procedure Diagnosis:: Same Indications for Procedure:: Patient is a pleasant 55-year-old white male who presents today for intrathecal pain pump adjustment. Patient had a failing intrathecal [employer] pain pump. He was switched with a flow Grady he is doing better and his pain is baseline however he is dealing with some anxiety, difficulty sleeping and some sweating. Patient was given a 0.25 mg bolus of the morphine. His anxiety decreased significantly. He has not been using his PTC. I discussed with him that he needs to use this when he is having the symptoms. He rates his pain today a 5 out of 10. Procedure Details:: Informed consent was obtained and the risk and benefits of the procedure were explained to the patient. The patient was taken to the procedure room where noninvasive monitoring was placed including noninvasive blood pressure cuff and pulse oximeter. Patient's pump was interrogated and reprogrammed. The infusion rate was increased to 2.4 milligrams of morphine a day. The patient tolerated the procedure well. Plan and Disposition:: I encouraged the patient to utilize his PTC. He has an appointment on he would like to keep this appointment I discussed with him that he is welcome to vocational guidance counselor this if he is doing better. Patient understands and is agreeable. Dr. Cabello has reviewed this note and agrees with this plan of care. This note was dictated using voice recognition software and may contain errors or omissions
== END ==
PROVIDERS: Visit Provider Clinical Nurse Specialist Family Health
DX: M51.16 Intervertebral disc disorders with radiculopathy, lumbar region (principal); M96.1 Postlaminectomy syndrome, not elsewhere classified
CPT/HCPCS: 62368

== ENCOUNTER → 2020-05-13 08:45 | Outpatient (POV) | payer BC, MEDICARE, SELFPAY ==
[2020-05-13 09:23] VITALS: BP 159/81; PULSE 97; RESP 18; TEMP 36.8; O2SAT 99; BMI 30.8
--- NOTE | 2020-05-13 09:25 | HMH.PAINSOAP ---
[facility] Pain Management SOAP Note Subjective:: 55-year-old white male who presents today for suture removal and follow-up. Patient had a intrathecal pain pump replaced. His Medtronic pump was not working. Patient states he is doing extremely well rating his pain a 6 out of 10. Incisions are healed. He does have a small amount of redness potentially from the sutures in his abdominal incision. Patient has Steri-Strips applied patient has no sign symptoms o infection. Patient states his pain is better than it has been in years overall doing extremely well. ROS General: no recent weight change, no fever, no sleep disturbances Respiratory: no cough, no shortness of air, no recurring pulmonary infections Cardiovascular/Peripheral Vascular: No chest pain, No palpitations, no edema, no shortness of breath. Gastrointestinal: no new onset incontinence, normal bowel movements reported Genitourinary: no new onset incontinence Musculoskeletal: Back pain, leg pain Psychiatric: normal mood/ affect Neurological: [denies new onset weakness in extremities], [denies new onset balance issues] Objective:: Physical Exam General: Alert and oriented x3, no acute distress, pleasant and cooperative, [on room air] Lungs: Resps E/U, Symmetrical chest expansion, Eyes: PERRL Musculoskeletal: Flexion and extension of lumbar spine somewhat guarded secondary to pain, deep tendon reflexes normal, strength in upper and lower extremities [5/5], normal gait noted Neurological: speech clear, 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 Overall patient doing well he has been instructed to call the office if he has any issues prior to his next appointment. Dr. Cabello has reviewed this note and agrees with this plan of care. This note was dictated using voice recognition software and may contain errors or omissions [facility] History I have reviewed the patient's past medical history: Yes Medical History: Reports:: Diabetes Mellitus Type 2, Heart Murmur, Hyperlipidemia, Hypertension Denies:: Cancer, Diabetes Mellitus Type 1, Internal Pacemaker, MRSA, Seizures *Have you ever received a pneumonia vaccine?: Yes *Have you received a flu vaccine this season?: Yes Other Medical History: Reports: Hypothyroidism, Thyroid Disease. Denies: Blood Transfusion Reaction Laterality Cases: Bilateral: Carpal Tunnel Release Other Surgeries: No: Pacemaker Amputation: No Fractures: No - *Social History Smoking Status: Former smoker Tobacco Type: cigarettes Alcohol Intake: never *Occupational Status:: other Housing: house Household Members: spouse *Travel in the last 8 weeks: None Family Hx:: Cancer, Diabetes, Heart Attack, Stroke
== END ==
PROVIDERS: Visit Provider Clinical Nurse Specialist Family Health
DX: M51.16 Intervertebral disc disorders with radiculopathy, lumbar region (principal)
CPT/HCPCS: 99212; G0463

== ENCOUNTER → 2020-06-03 08:49 | Outpatient (POV) | payer BC, MEDICARE, SELFPAY ==
--- NOTE | 2020-06-03 09:11 | P.PCN_ITS ---
- Procedure Date: 06/03/20 Time: 09:11 Anesthesiologist:: Nola Miller APRN Complications:: None Pre-procedure Diagnosis:: Generative disc disease lumbar spine lumbar radiculopathy symptoms Post-procedure Diagnosis:: Same Indications for Procedure:: Patient is a 55-year-old white male who presents today for follow-up after suture removal. Patient recently had a Medtronic intrathecal pain pump change out to a flow Grady intrathecal pain pump. He says he is doing well overall since the change. He rates his pain a 7 out of 10, however, he does not feel it due to the pump. He says his baseline is generally a 6 out of 10. He feels the weather has contributed to some of his pain. He does not want a change in his intrathecal dosing. He would like a change in his PTC device, however. He would like to go from 4 times a day up to 6 times a day. He does not want to change in the dosing with the PTC. He denies any side effects to the medication. Patient's [place] and drug screens are appropriate. 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 Patient was taken to the procedure room where noninvasive monitoring was placed including noninvasive blood pressure cuff and pulse oximeter. Patient's pump was interrogated and was reprogrammed to PTC increased to 6 times daily. The patient tolerated the procedure well with no complications. Plan and Disposition:: We will see the patient back at his next intrathecal pain pump refill and reprogram. He has been instructed to contact the clinic if he has any concerns before his next appointment. The patient and I specifically discussed risk factors for COVID19. These risks include, but are not limited to age greater than 60, heart or lung disease, diabetes, immunosuppression, and travel. We also discussed NSAIDs may worsen COVID19 infection or symptoms. Patient should not use NSAIDs to treat COVID19 signs or symptoms. Patient was also informed that any type of corticosteroid of any form (oral or injection) will decrease the patient's immune system response and may increase the likelihood of COVID19 infection and symptoms[address] Cabello has reviewed this note and agrees with this plan of care. This note was dictated using voice recognition software and make contain errors or omissions.
[2020-06-03 11:29] VITALS: BP 133/74; PULSE 74; RESP 18; O2SAT 98; BMI 33.0
== END ==
PROVIDERS: PCP Family Medicine; Visit Provider Clinical Nurse Specialist Family Health
DX: M51.16 Intervertebral disc disorders with radiculopathy, lumbar region (principal)
CPT/HCPCS: 62368

== ENCOUNTER 2020-07-26 13:38 | Day surgery (SDC) | payer BC, MEDICARE, SELFPAY ==
[2020-07-26 13:51] VITALS: BP 197/96; PULSE 91; RESP 18; TEMP 36.6; BMI 33.0
--- NOTE | 2020-07-26 14:23 | HMH.PMPROC ---
- Procedure Date: 07/26/20 Time: 14:35 Anesthesiologist:: Tiesha Green APRN Complications:: None Pre-procedure Diagnosis:: Degenerative disc disease lumbar spine lumbar radiculopathy low back pain Post-procedure Diagnosis:: Same Indications for Procedure:: Patient's pleasant 55-year-old white male who presents today for intrathecal pain pump refill and reprogram. He rates his pain a 5 out of 10 he does not need any changes to his current dose. Overall patient doing well he denies any side effects with medication. [facility] #[id number] reviewed and appropriate. Procedure Details:: Informed consent was obtained and the risk and benefits of the procedure were explained to the patient. The patient was taken to the procedure room where noninvasive monitoring was placed including noninvasive blood pressure cuff and pulse oximeter. Patient's pump was interrogated. The area over the pump was cleansed with chlorhexidine as a cleansing solution. In sterile fashion the pump was accessed with a 22-gauge needle. Approximately 10 mL's were removed of the pump solution and discarded appropriately. The pump was then refilled with 20 mL's of morphine 25 mg/mL. The needle was withdrawn and a bandage was placed over the puncture site. The infusion rate was reprogrammed to continued at 2.4 mg/day. The patient tolerated the procedure well. Plan and Disposition:: We will see the patient back at his next intrathecal pain pump refill and reprogram he has been instructed to call the office if he has any issues prior to his next appointment. Dr. Cabello has reviewed this note and agrees with this plan of care. This note was dictated using voice recognition software and may contain errors or omissions
[2020-07-26 14:27] VITALS: BP 183/81; PULSE 88; RESP 18; O2SAT 98
[2020-07-26 14:28] VITALS: BP 175/82; PULSE 89; RESP 18; O2SAT 99
[2020-07-26 14:41] VITALS: BP 175/82; PULSE 91; RESP 18; TEMP 36.6; O2SAT 98
== END 2020-07-26 14:35 | disposition home or self-care (01) ==
LOC: SC.PAINP 13:44
PROVIDERS: PCP Family Medicine; Visit Provider Clinical Nurse Specialist Family Health
DX: M51.16 Intervertebral disc disorders with radiculopathy, lumbar region (principal)
CPT/HCPCS: 95991

== ENCOUNTER 2020-10-04 14:21 | Day surgery (SDC) | payer BC, MEDICARE, SELFPAY ==
[2020-10-04 14:25] VITALS: BP 189/91; PULSE 91; RESP 20; TEMP 37; O2SAT 98; BMI 33.3
[2020-10-04 14:48] VITALS: BP 169/70; PULSE 83; RESP 18; O2SAT 96
[2020-10-04 14:56] VITALS: BP 180/80; PULSE 84; RESP 18; O2SAT 98
--- NOTE | 2020-10-04 15:01 | HMH.PMPROC ---
- Procedure Date: 10/04/20 Time: 15:01 Anesthesiologist:: Nola Miller APRN Complications:: None Pre-procedure Diagnosis:: Degenerative disc disease lumbar spine with lumbar radiculopathy symptoms, low back pain Post-procedure Diagnosis:: Same Indications for Procedure:: Patient is a pleasant 55-year-old white male who presents today for intrathecal pain pump refill and reprogram. He has been treated for degenerative disc disease lumbar spine with lumbar radiculopathy symptoms. His [place] is appropriate drug screens are appropriate. He is on morphine at 2.4 mg/day. He would like a slight decrease. He says he is doing well with his pain at a 2 out of 10. 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 The patient was taken to the procedure room where noninvasive monitoring was placed including noninvasive blood pressure cuff and pulse oximeter. Patient's pump was interrogated. The area over the pump was cleansed with chlorhexidine as a cleansing solution. In sterile fashion the pump was accessed with a 22-gauge needle. Approximately 13 mls of the pump solution was removed and discarded appropriately. The pump was then refilled with 20 mL's of morphine at 25 mg per male. The needle was withdrawn and a bandage was placed over the puncture site. The infusion rate was reprogrammed at morphine at 2.2 mg/day. The patient tolerated well with no complication. Plan and Disposition:: We will see the patient back at his next intrathecal refill and reprogram. Patient has been instructed to contact the clinic with any concerns before the next appointment. Dr. Cabello has reviewed this note and agrees with this plan of care. This note was dictated using voice recognition software and make contain errors or omissions.
[2020-10-04 15:34] VITALS: BP 167/65; PULSE 79; RESP 20; TEMP 37; O2SAT 98
== END 2020-10-04 15:00 | disposition home or self-care (01) ==
LOC: SC.PAINP 14:23
PROVIDERS: PCP Family Medicine; Visit Provider Clinical Nurse Specialist Family Health
DX: M51.16 Intervertebral disc disorders with radiculopathy, lumbar region (principal); Z45.1 Encounter for adjustment and management of infusion pump
CPT/HCPCS: 62370

== ENCOUNTER → 2020-10-28 08:09 | Outpatient (POV) | payer BC, MEDICARE, SELFPAY ==
[2020-10-28 08:16] VITALS: BP 180/80; PULSE 87; RESP 18; O2SAT 97; BMI 33.0
--- NOTE | 2020-10-28 08:43 | P.PCN_ITS ---
- Procedure Date: 10/28/20 Time: 08:43 Anesthesiologist:: Nola Miller APRN Complications:: None Pre-procedure Diagnosis:: Degenerative disc disease lumbar spine with lumbar radiculopathy symptoms, neurogenic claudication symptoms Post-procedure Diagnosis:: Same Indications for Procedure:: Patient is a pleasant 55-year-old white male who presents today for intrathecal pain pump adjustment. He has been treated for degenerative disc disease lumbar spine with lumbar radiculopathy symptoms. He is also having neurogenic claudication type symptoms. He rates his pain a 2 out of 10. He wants a decrease in his intrathecal therapy today. He says he is doing very well and feels he can decrease in his dosing. He is complaining, however, of severe leg weakness. He says walking up and down stairs causes him to have severe leg weakness bilaterally. He is also having episodes where he feels as though his legs are going to give out. He says he was worked up in the past for spinal stenosis possible mild procedure, however, was told per Tena Green APRN and that he may not be able to do the procedure due to hardware in his spine. He is interested in reevaluation for possible mild procedure. He says he is having episodes of feeling like he cannot stand. Review of Systems General: No recent weight changes, no fever, no sleep disturbances Respiratory: No cough, no shortness of air, no recurring pulmonary infections Cardiovascular/peripheral vascular: No chest pain, no palpitations, no edema, no shortness of breath Gastrointestinal: No new onset incontinence, normal bowel movements reported Genitourinary: No new onset incontinence Musculoskeletal: Intermittent low back pain Psychiatric: Normal mood/affect Neurological: Weakness in lower extremities Procedure Details:: Informed consent was obtained and the risk and benefits of the procedure were explained to the patient. Patient was taken to the procedure room where nonin vasive monitoring was placed including noninvasive blood pressure cuff and pulse oximeter. Patient's pump was interrogated and was reprogrammed to decrease to morphine at 2 mg/day. The patient tolerated the procedure well with no complications. Plan and Disposition:: Patient was discussed in detail with Dr. Beltran. Patient does have hardware as well as a Medtronic stimulator and intrathecal pain pump. He has discussed mild procedure in detail with Tena Green APRN in the past. We will schedule the patient for a lumbar epidural steroid injection at L2-L3 with an epidurogram. He does have a history of ligamentum flavum hypertrophy to this area. We will see if he is an appropriate candidate for the mild procedure. He is not on any anticoagulation therapy. Patient has been instructed to contact the clinic with any concerns before the next appointment. Dr. Cabello has reviewed this note and agrees with this plan of care. This note was dictated using voice recognition software and make contain errors or omissions.
== END ==
PROVIDERS: PCP Family Medicine; Visit Provider Clinical Nurse Specialist Family Health
DX: M51.16 Intervertebral disc disorders with radiculopathy, lumbar region (principal); M48.062 Spinal stenosis, lumbar region with neurogenic claudication; Z45.1 Encounter for adjustment and management of infusion pump
CPT/HCPCS: 62368

== ENCOUNTER 2020-12-10 10:06 | Day surgery (SDC) | payer BC, MEDICARE, SELFPAY ==
[2020-12-10 10:17] VITALS: BP 169/64; PULSE 88; RESP 20; TEMP 37.1; O2SAT 98; BMI 34.2
[2020-12-10 10:43] VITALS: BP 144/72; PULSE 85; RESP 18; O2SAT 98
[2020-12-10 10:46] VITALS: BP 140/76; PULSE 87; RESP 18; O2SAT 98
--- NOTE | 2020-12-10 10:55 | HMH.PMPROC ---
- Procedure Date: 12/10/20 Time: 10:56 Anesthesiologist:: Stone Cabello MD Complications:: None Pre-procedure Diagnosis:: Degenerative disease of lumbar spine with lumbar spinal stenosis and neurogenic claudication symptoms and postlaminectomy syndrome lumbar spine Post-procedure Diagnosis:: Same Indications for Procedure:: This patient is a pleasant 55-year-old white male who we are treating for postlaminectomy syndrome lumbar spine and lumbar radiculopathy symptoms with lumbar spinal stenosis and neurogenic claudication symptoms. He has had previous epidural steroid injections which have not given him long-lasting relief. He also has a spinal cord stimulator in place which is not helping him. This is a Medtronic stimulator. He does have lumbar spinal stenosis with ligamentum flavum hypertrophy above his fusion at the L1-L2 and L2-L3 region. We will do a lumbar epidural steroid injection with epidurogram today to assess levels of stenosis and candidacy for minimally invasive lumbar decompression at L1-L2 and L2-L3. Procedure Details:: Informed consent was obtained and the risk and benefits of the procedure was explained to the patient. The patient was taken to the procedure room. The patient was placed prone on the procedure table. The patient was prepped and draped in sterile fashion. C-arm fluoroscopy was used to view the lumbar spine. Skin and subcutaneous tissues were anesthetized using lidocaine. I placed an 18-gauge epidural needle and advanced into the L2-L3 interspace using fluoroscopic guidance and [id number] to air. After confirmation of needle placement in the epidural space with dye I injected 2 mL of lidocaine 1.5% with Depo-Medrol 80 mg. Patient tolerated the procedure well with no complications. Plan and Disposition:: Based on epidurogram he does have significant stenosis above his fusion at L1-L2 and L2-L3. I do believe he would benefit from minimally invasive lumbar decompression to both of these levels. We will have to navigate the stimulator leads and previous pump catheter. However I do believe he would benefit from the minimally invasive lumbar decompression to both of these levels bilaterally. We will not do epidural steroid injection afterwards as steroid did not help him.
[2020-12-10 11:10] VITALS: BP 147/67; PULSE 80; RESP 20; O2SAT 98
== END 2020-12-10 11:11 | disposition home or self-care (01) ==
LOC: SC.PAINP 10:07
PROVIDERS: PCP Family Medicine; Visit Provider Anesthesiology
DX: M48.062 Spinal stenosis, lumbar region with neurogenic claudication (principal); M96.1 Postlaminectomy syndrome, not elsewhere classified
CPT/HCPCS: 62323; J1040; Q9966

== ENCOUNTER 2020-12-20 13:53 | Day surgery (SDC) | payer BC, MEDICARE, SELFPAY ==
[2020-12-20 14:05] VITALS: BP 125/80; PULSE 100; RESP 18; TEMP 36.5; O2SAT 96; BMI 33.8
--- NOTE | 2020-12-20 14:40 | HMH.PMPROC ---
- Procedure Date: 12/20/20 Time: 14:40 Anesthesiologist:: Nola Miller APRN Complications:: None Pre-procedure Diagnosis:: Degenerative disc disease lumbar spine with lumbar radiculopathy symptoms Post-procedure Diagnosis:: Same Indications for Procedure:: Patient is a pleasant 55-year-old white male who presents today for intrathecal pain pump refill and reprogram. He has been treated for degenerative disc disease lumbar spine with lumbar radiculopathy symptoms. Patient does rate his pain is 7 out of 10 today. He is having worsening pain but does not want a change in his pump at this time. He says that he does have side effects with the medication when it is increased. He does have boluses, however, rarely uses them. He is on morphine 2 mg/day, with boluses at 3 mg/day. [facility] #[id number] has been reviewed and is appropriate. Drug screen is appropriate. Physical exam General: Alert and oriented x3, no acute distress, pleasant and cooperative, [on room air] Lungs: Respirations even and unlabored, symmetrical chest expansion Eyes: PERRL Musculoskeletal: Flexion and extension of lumbar [spine] somewhat guarded secondary to pain, strength in upper and lower extremities [5/5], [antalgic gait noted] Neurological: Speech clear, [rn clinician equal], no gross sensory deficit Procedure Details:: Informed consent was obtained and the risk and benefits of the procedure were explained to the patient. The patient was taken to the procedure room where noninvasive monitoring was placed including noninvasive blood pressure cuff and pulse oximeter. Patient's pump was interrogated. The area over the pump was cleansed with chlorhexidine as a cleansing solution. In sterile fashion the pump was accessed with a 22-gauge needle. Approximately 13 mls of the pump solution was removed and discarded appropriately. The pump was then refilled with 20 mL's of morphine 25 mg/mL. The needle was withdrawn and a bandage was placed over the puncture site. The infusion rate was reprogrammed at morphine 2 mg/day. The patient tolerated well with no complication. Plan and Disposition:: We will see the patient back in the clinic at the next intrathecal refill. Patient has been instructed to contact the clinic with any concerns before the next appointment. Dr. Cabello has reviewed this note and agrees with this plan of care. This note was dictated using voice recognition software and make contain errors or omissions.
[2020-12-20 14:41] VITALS: BP 156/73; PULSE 88; RESP 18; O2SAT 95
[2020-12-20 14:42] VITALS: BP 156/73; PULSE 87; RESP 18; O2SAT 95
[2020-12-20 14:58] VITALS: BP 146/72; PULSE 85; RESP 20; O2SAT 95
== END 2020-12-20 14:58 | disposition home or self-care (01) ==
LOC: SC.PAINP 13:55
PROVIDERS: PCP Family Medicine; Visit Provider Clinical Nurse Specialist Family Health
DX: M51.16 Intervertebral disc disorders with radiculopathy, lumbar region (principal)
CPT/HCPCS: 95991

== ENCOUNTER → 2021-01-06 14:59 | Outpatient (POV) | payer BC, MEDICARE, SELFPAY ==
[2021-01-06 15:05] VITALS: BP 180/94; PULSE 90; RESP 18; O2SAT 97; BMI 34.4
--- NOTE | 2021-01-06 15:31 | HMH.PAINSOAP ---
[facility] Pain Management SOAP Note Subjective:: Patient is a 55-year-old white male who presents today for follow-up. Patient thought he had an appointment today, however, was not on the schedule. He is complaining of worsening pain so we did agree to see the patient today. Patient is complaining of worsening pain to his low back and bilateral lower extremities. He does have an intrathecal pain pump?flow Swink. He previously had a Medtronic intrathecal pain pump. Patient says that he does not get the relief he had hoped with the intrathecal pump and the stimulator. He also has a Medtronic spinal cord stimulator. The stimulator is currently turned off due to the device no longer working. The patient has discussed in the past possible change out of the device to a adQuota with Dr. Cabello. He says that his pain is getting significantly worse to the point he is having falls daily. He is unable to stand for very long without developing severe pain. He says his legs are giving out. He has tried physical therapy for more than 6 weeks in the past along with home stretching and anti-inflammatories. We did attempt to get the patient approved for a mild procedure x2. The patient was denied. He is having numbness and tingling into his bilateral lower extremities along with weakness and heaviness. He is no longer considered a neurosurgical candidate. He has had surgery to his lumbar spine in the past. Patient does rate his pain a 6 out of 10 today. Review of Systems General: No recent weight changes, no fever, no sleep disturbances Respiratory: No cough, no shortness of air, no recurring pulmonary infections Cardiovascular/peripheral vascular: No chest pain, no palpitations, no edema, no shortness of breath Gastrointestinal: No new onset incontinence, normal bowel movements reported Genitourinary: No new onset incontinence Musculoskeletal: Low back pain with radiation into bilateral lower extremities with numbness and tingling Psychiatric: [Normal mood/affect] Neurological: Weakness in bilateral lower extremities with frequent falls Objective:: Physical exam General: Alert and oriented x3, no acute distress, pleasant and cooperative, [on room air] Lungs: Respirations even and unlabored, symmetrical chest expansion Eyes: PERRL Musculoskeletal: Flexion and extension of lumbar [spine] somewhat guarded secondary to pain, strength in upper and lower extremities [5/5], [antalgic gait noted] Neurological: Speech clear, [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 We are very limited with options for the patient at this point. We will order the patient gabapentin 300 mg 1 tablet p.o. daily to see if this helps with his pain in his bilateral lower extremities. We also discussed change out of his stimulator from Medtronic to [employer]. He has discussed this with Dr. Cabello in the past. He would like to discuss this in greater detail with Dr. Cabello before proceeding. Patient says he has not seen Dr. Cabello in some time and would feel more comfortable discussing his options with him before proceeding. We will order him gabapentin to see if this relieves his numbness and tingling in lower extremities. He will see Dr. Cabello in 1 week. Risks and benefits of the medication have been explained in detail to the patient. If side effects do present with the medication, she has been advised to stop the medication immediately and call the clinic. The patient has been advised to consult with his/her primary care provider and pharmacist regarding drug-drug interaction of medications currently prescribed. Patient has been instructed to contact the clinic with any concerns before the next appointment. Dr. Cabello has reviewed this note and
== END ==
PROVIDERS: Visit Provider Clinical Nurse Specialist Family Health
DX: M51.16 Intervertebral disc disorders with radiculopathy, lumbar region (principal); M48.062 Spinal stenosis, lumbar region with neurogenic claudication
CPT/HCPCS: 99212; G0463

== ENCOUNTER → 2021-01-14 09:28 | Outpatient (POV) | payer BC, MEDICARE, SELFPAY ==
[2021-01-14 09:37] VITALS: BP 176/85; PULSE 104; RESP 18; TEMP 36.6; O2SAT 95; BMI 34.4
--- NOTE | 2021-01-14 11:11 | P.CONS_ITS ---
[facility] Pain Management SOAP Note Subjective:: Patient is a pleasant 55-year-old white male who we are treating for postlaminectomy syndrome lumbar spine with lumbar radiculopathy symptoms. He does have a intrathecal pain pump in place and a spinal cord stimulator which is currently nonfunctioning. He is having some increasing pain in his back with significant spinal stenosis and neurogenic claudication symptoms. He has been denied the minimally invasive lumbar decompression by his insurance. Most of his pain is when standing and walking with significant neurogenic claudication symptoms. We will refer him to Dr. Parkinson and Dr. Dodge for neurosurgical evaluation. I have encouraged him to use his pain pump boluses. His pain pump is working well and helping him significantly. He has no side effects with current medication regimen. He does also have a nonfunctioning spinal cord stimulator and we will seek approval for changing this out to a [employer] system. Objective:: Alert and oriented x3 no acute distress. Patient does have an antalgic gait. Motor strength of the lower extremities is 5/5. There is no gross sensory deficit. Pain pump is doing well. Assessment:: Postlaminectomy syndrome lumbar spine with lumbar radiculopathy symptoms Plan:: We will refer him to Dr. Parkinson and Dr. Dodge for neurosurgical evaluation. We will also seek approval for replacement of his spinal cord stimulator system with a [employer] system. We will continue his pain pump at its current dose. We will follow-up with him in 2 weeks. [facility] History Medical History: Reports:: Coronary Artery Disease, Diabetes Mellitus Type 2, Heart Murmur, Hyperlipidemia, Hypertension Denies:: Cancer, Diabetes Mellitus Type 1, Internal Pacemaker, MRSA, Seizures *Have you ever received a pneumonia vaccine?: No *Have you received a flu vaccine this season?: No Other Medical History: Reports: Arthritis, Hypothyroidism, Thyroid Disease. Denies: Blood Transfusion Reaction Laterality Cases: Left: Total Knee Replacement, Bilateral: Carpal Tunnel Release Other Surgeries: Yes: Cardiac Catheterization, Other (breast nodules removal). No: Pacemaker Amputation: No Fractures: No - *Social History Smoking Status: Former smoker Tobacco Type: cigarettes Alcohol Intake: never *Occupational Status:: employed Housing: house Household Members: spouse *Travel in the last 8 weeks: None Family Hx:: Cancer, Diabetes, Heart Attack, Stroke
== END ==
PROVIDERS: PCP Family Medicine; Visit Provider Anesthesiology
DX: M96.1 Postlaminectomy syndrome, not elsewhere classified (principal); M54.16 Radiculopathy, lumbar region
CPT/HCPCS: 99212; G0463

== ENCOUNTER 2021-02-28 14:21 | Day surgery (SDC) | payer BC, MEDICARE, SELFPAY ==
[2021-02-28 14:24] VITALS: BP 197/90; PULSE 110; RESP 18; TEMP 37.4; O2SAT 94; BMI 33.0
--- NOTE | 2021-02-28 14:55 | HMH.PMPROC ---
- Procedure Date: 02/28/21 Time: 14:56 Anesthesiologist:: Nola Miller APRN Complications:: None Pre-procedure Diagnosis:: Degenerative disc disease lumbar spine with lumbar radiculopathy symptoms Post-procedure Diagnosis:: Same Indications for Procedure:: Patient is a pleasant 55-year-old white male who presents today for intrathecal pain pump [refill] [and reprogram]. The patient is being treated for chronic low back pain. The patient is scheduled to see her Dra for neurosurgical evaluation. Unfortunately, the patient's insurance has denied him gel of his spinal cord stimulator as well as mild procedure and any further treatment. His spinal cord stimulator is nonfunctioning at this time. The pump does give him some relief. He does get sleepy with boluses. He is currently on Dilaudid at 2 mg/day. We did discuss changing to periodic flow to see if this helps with his pain. His pain is in his low back area.. Patient rates pain a 7 out of 10. Drug screen is appropriate. [place] [ ] has been reviewed and is appropriate. Physical exam General: Alert and oriented x3, no acute distress, pleasant and cooperative, [on room air] Lungs: Respirations even and unlabored, symmetrical chest expansion Eyes: PERRL Musculoskeletal: Flexion and extension of lumbar [spine] somewhat guarded secondary to pain, [antalgic gait noted] Neurological: Speech clear, no gross sensory deficit Procedure Details:: Informed consent was obtained and the risk and benefits of the procedure were explained to the patient. The patient was taken to the procedure room where noninvasive monitoring was placed including noninvasive blood pressure cuff and pulse oximeter. Patient's pump was interrogated. The area over the pump was cleansed with chlorhexidine as a cleansing solution. In sterile fashion the pump was accessed with a 22-gauge needle. Approximately 8 mls of the pump solution was removed and discarded appropriately. The pump was then refilled with 20 mL's of Dilaudid milligrams per male. The needle was withdrawn and a bandage was placed over the puncture site. The infusion rate was reprogrammed at Dilaudid at 0.083 mg every hour for daily dose of Dilaudid 2 mg/day.. The patient tolerated well with no complication. Plan and Disposition:: We did change the patient to periodic flow today. We will see if this helps with his mid back pain. He is scheduled to see Dr. Dodge on March 28. We will see the patient back in the clinic at the next intrathecal refill. Patient has been instructed to contact the clinic with any concerns before the next appointment. Dr. Cabello has reviewed this note and agrees with this plan of care. This note was dictated using voice recognition software and make contain errors or omissions.
[2021-02-28 14:59] VITALS: BP 141/67; PULSE 102; RESP 18; O2SAT 94
[2021-02-28 15:00] VITALS: PULSE 101; RESP 18; O2SAT 94
[2021-02-28 15:20] VITALS: BP 180/78; PULSE 103; RESP 20; O2SAT 95
[2021-02-28 18:43] LABS: Amphetamine/Metha Screen,Urine Negative ng/ml (<1000); Barbiturates Screen,Urine Negative ng/ml (<200)
[2021-02-28 18:45] LABS: Benzodiazepines Screen,Urine Negative ng/ml (<200)
[2021-02-28 18:46] LABS: Cannabinoid Screen,Urine Negative ng/ml (<50)
[2021-02-28 18:47] LABS: Cocaine Screen,Urine Negative ng/ml (<300); Methadone Screen,Urine Negative ng/ml (<300)
[2021-02-28 18:48] LABS: Opiate Screen,Urine Positive ng/ml (<300); Phencyclidine Screen,Urine Negative ng/ml (<25)
[2021-03-14 10:57] LABS: Codeine Negative (Cutoff=100); Hydrocodone Negative (Cutoff=100); Hydromorphone Negative (Cutoff=100); Morphine Positive (.); Opiates Positive (.)
== END 2021-02-28 15:20 | disposition home or self-care (01) ==
LOC: SC.PAINP 14:23
PROVIDERS: PCP Family Medicine; Visit Provider Clinical Nurse Specialist Family Health
DX: M51.16 Intervertebral disc disorders with radiculopathy, lumbar region (principal); Z45.1 Encounter for adjustment and management of infusion pump; Z79.891 Long term (current) use of opiate analgesic
CPT/HCPCS: 62370; 80305; 80361; 80365; G0480

== ENCOUNTER 2021-05-23 14:12 | Day surgery (SDC) | payer BC, MEDICARE, SELFPAY ==
--- NOTE | 2021-05-23 14:21 | P.PCN_ITS ---
- Procedure Date: 05/23/21 Time: 14:21 Anesthesiologist:: Sheron Beltran MD Complications:: None Pre-procedure Diagnosis:: Degenerative disease of the lumbar spine with lumbar radiculopathy Post-procedure Diagnosis:: Same Indications for Procedure:: Patient is a very pleasant 56-year-old white male who presents today for intrathecal pump refill and reprogram. He has a pump with a flow [employer] system with intrathecal morphine 25mg/ml at 1.99 mg/day on periodic flow. Its that he is scheduled to undergo lumbar spine surgery next week and is concerned regarding his postop pain. He is questioning whether he should undergo an increase in his pump dosing for postop pain control. He states that overall at this time his pain remains controlled with his current pump settings. The plan for today is for the patient to undergo intrathecal pump refill and reprogram under fluoroscopy with no changes to his pump settings at this time. Procedure Details:: Informed consent was obtained and the risks and benefits of the procedure was explained to the patient. The patient was taken to the procedure room. The pump was interrogated. The area over the pump was prepped using ChloraPrep. The pump was accessed with a 22-gauge needle. Approximately [15] mL's of the intrathecal solution was withdrawn and discarded. The pump was then refilled with 20 mL's of intrathecal morphine 25mg/ml the pump was interrogated and the infusion was continued at 0.08 mg boluses 24 times a day within 1 hour lockout for a total of 1.99 mg/day. The patient tolerated the procedure well with no complications. Next refill date is on December 13, 2021]. Plan and Disposition:: We will follow-up with this patient at or before his next pump refill in 3 months. We can perform pump adjustments at the next visit if indicated. [facility] #[id number] was reviewed and appropriate. I discussed with the patient that we will not make any intrathecal pump adjustments in anticipation of his upcoming lumbar spine surgery from a postop pain control standpoint. Should he have any issues obtaining pain medicine acute postop is while he is inpatient I discussed with the patient his surgeon should contact our clinic for further discussion. ORT was performed this patient today and the patient was deemed low risk.
[2021-05-23 14:25] VITALS: BP 112/93; BP 183/90; BP 186/83; BP 194/84; PULSE 103; PULSE 105; PULSE 106; PULSE 95; RESP 20; TEMP 36.7; O2SAT 96; O2SAT 98; BMI 33.3
== END 2021-05-23 14:42 | disposition home or self-care (01) ==
LOC: SC.PAINP 14:14
PROVIDERS: PCP Family Medicine; Visit Provider Anesthesiology Pain Medicine
DX: M51.16 Intervertebral disc disorders with radiculopathy, lumbar region (principal); Z45.1 Encounter for adjustment and management of infusion pump
CPT/HCPCS: 95991

== ENCOUNTER 2021-08-08 13:42 | Day surgery (SDC) | payer BC, MEDICARE, SELFPAY ==
[2021-08-08 14:02] VITALS: BP 131/86; PULSE 86; RESP 18; TEMP 37.1; O2SAT 98; BMI 33.0
[2021-08-08 14:25] VITALS: BP 180/70; PULSE 82; RESP 18; O2SAT 94
[2021-08-08 14:28] VITALS: BP 171/85; PULSE 78; RESP 18; O2SAT 96
--- NOTE | 2021-08-08 14:28 | P.PCN_ITS ---
- Procedure Date: 08/08/21 Time: 14:28 Anesthesiologist:: Kvng Aranda CRNA Complications:: None Pre-procedure Diagnosis:: Degenerative disc disease bar spine. Post laminectomy syndrome. Post-procedure Diagnosis:: Same Indications for Procedure:: Patient is a very pleasant 56-year-old white male who presents to our clinic today for intrathecal pain pump refill. Patient is currently being managed with morphine sulfate 25 mg/mL at 1.99 mg/day. He is on current periodic flow. Patient is recently undergone lumbar laminectomy May 2021. Patient's had multiple lumbar surgeries. Also, patient had lumbar epidural steroid injection last week with Dr. Cabello. Patient states he did get some relief from the injection. However continues to have lumbar back pain as well as bilateral hip and leg radicular symptoms. Left hip pain. Left knee pain. Patient tells me today he has been told he needs a hip and a knee replacement. However, patient said he has had 20 surgeries in the past. He does not want any more surgery. I discussed in detail with the patient regarding caudal epidural steroid injection in the future. If in fact he does need further injective therapy. Procedure Details:: Details of the procedure were explained to the patient. The patient taken the procedure room placed in the sitting position. The area over the pump was leonides jd using chlorhexidine as a cleansing solution. The pump was accessed with ease. This was using a 22-gauge needle. 15 cc of fluid was removed. The pump was then filled with 20 cc of morphine 25 mg/mL. Needle was removed. Band-Aid applied. Patient tolerated procedure without difficulty. There were no complications. Plan and Disposition:: Patient was discharged home without incident. He will follow-up in the clinic with us regarding further injective therapy if needed.
[2021-08-08 14:45] VITALS: BP 161/77; PULSE 79; RESP 20; O2SAT 95
[2021-08-08 17:55] LABS: Amphetamine/Metha Screen,Urine Negative ng/ml (<1000)
[2021-08-08 17:56] LABS: Barbiturates Screen,Urine Negative ng/ml (<200); Benzodiazepines Screen,Urine Negative ng/ml (<200)
[2021-08-08 17:57] LABS: Cannabinoid Screen,Urine Negative ng/ml (<50)
[2021-08-08 17:58] LABS: Cocaine Screen,Urine Negative ng/ml (<300); Methadone Screen,Urine Negative ng/ml (<300)
[2021-08-08 17:59] LABS: Opiate Screen,Urine Positive ng/ml (<300); Phencyclidine Screen,Urine Negative ng/ml (<25)
[2021-08-24 15:13] LABS: Codeine Negative (Cutoff=100); Hydrocodone Negative (Cutoff=100); Hydromorphone Negative (Cutoff=100); Morphine Positive (.); Opiates Positive (.)
== END 2021-08-08 14:45 | disposition home or self-care (01) ==
LOC: SC.PAINP 13:43
PROVIDERS: PCP Family Medicine; Visit Provider Nurse Anesthetist, Certified Registered
DX: M51.36 Other intervertebral disc degeneration, lumbar region (principal); M96.1 Postlaminectomy syndrome, not elsewhere classified; Z45.1 Encounter for adjustment and management of infusion pump; K21.9 Gastro-esophageal reflux disease without esophagitis; I10 Essential (primary) hypertension; E11.9 Type 2 diabetes mellitus without complications; E78.5 Hyperlipidemia, unspecified; I50.9 Heart failure, unspecified; Z87.891 Personal history of nicotine dependence; Z88.0 Allergy status to penicillin; Z79.899 Other long term (current) drug therapy; Z79.82 Long term (current) use of aspirin
CPT/HCPCS: 80305; 80361; 80365; 95991; G0480

== ENCOUNTER 2021-08-19 07:32 | Day surgery (SDC) | payer BC, MEDICARE, SELFPAY ==
[2021-08-19 07:46] VITALS: BP 175/77; PULSE 82; RESP 17; TEMP 36.9; O2SAT 98; BMI 33.8
[2021-08-19 08:27] VITALS: BP 212/124; PULSE 76; RESP 18; O2SAT 96
[2021-08-19 08:31] VITALS: BP 201/114; PULSE 73; RESP 18; O2SAT 97
--- NOTE | 2021-08-19 08:32 | HMH.PMPROC ---
- Procedure Date: 08/19/21 Time: 08:35 Anesthesiologist:: Kvng Aranda CRNA Complications:: None Pre-procedure Diagnosis:: Postlaminectomy syndrome. Degenerative disc disease lumbar spine. Lumbar radiculopathy symptoms. Post-procedure Diagnosis:: Same Indications for Procedure:: Patient is a very pleasant 56-year-old male that has had injections in his lumbar spine on different occasions. However, has not had much success. Patient is had multiple lumbar surgeries. Patient not interested in any further surgeries. We discussed at length caudal epidural steroid injection for chronic low back pain as well as bowel hip and leg pain. We will proceed today. Procedure Details:: Details of the procedure were explained to the patient. The patient taken to the procedure room placed in the prone position. With fluoroscopy in lateral position the caudal space was accessed with ease using a 22-gauge 3 and half inch spinal needle. After negative aspiration 0.5 cc of contrast dye was injected with cephalad spread noted. At this time 80 mg of Depo-Medrol mixed in a solution with 3 cc of normal saline and 2 cc of 1% lidocaine was injected. Patient tolerated procedure without difficulty. There were no complications. Plan and Disposition:: Patient was discharged home without incident.
[2021-08-19 08:38] VITALS: BP 186/86; PULSE 78; RESP 18; O2SAT 96
== END 2021-08-19 08:39 | disposition home or self-care (01) ==
LOC: SC.PAINP 07:36
PROVIDERS: PCP Family Medicine; Visit Provider Nurse Anesthetist, Certified Registered
DX: M51.16 Intervertebral disc disorders with radiculopathy, lumbar region (principal); M96.1 Postlaminectomy syndrome, not elsewhere classified; I10 Essential (primary) hypertension; Z88.0 Allergy status to penicillin
CPT/HCPCS: 62323; J1040; Q9966

== ENCOUNTER → 2021-08-30 08:54 | Outpatient (POV) | payer BC, MEDICARE, SELFPAY ==
[2021-08-30 09:40] VITALS: BP 146/92; PULSE 90; RESP 18; TEMP 36.3; O2SAT 95; BMI 33.3
--- NOTE | 2021-08-30 09:54 | HMH.PAINSOAP ---
[facility] Pain Management SOAP Note Subjective:: Patient is a pleasant 56-year-old male who has had lumbar injections in the past with minimal success. He recently had a caudal epidural steroid injection. He reports significant improvement terms of his lumbar back pain as well as bilateral hip and leg pain. He rates his pain 6/10. However, he is typically 10/10. I informed him we could do this once every 3 months. Patient also has intrathecal pain pump. He currently has morphine sulfate 25 mg/mL at 1.92 mg a day. Patient also has PTC x6. He mentions he uses those typically each day. At the time of his caudal injection we discussed adding Marcaine to his fusion. He would like to proceed with that. We will set up a refill of his pump and medication change soon as possible. Patient denies any side effects from the pain pump. Objective:: Patient is awake alert [place] x3. No acute distress. Flexion-extension lumbar spine somewhat guarded secondary to pain. Deep tendon reflexes upper and lower extremities normal. Motor strength upper and lower extremities normal. There is no gross sensory deficit. Gait is normal. Assessment:: Degenerative disc disease lumbar spine multilevels. Lumbar radicular symptoms. Postlaminectomy syndrome. Plan:: We will schedule the patient for pump refill and add bupivacaine to the pump. We will call the patient as soon as we have this medication available and we will get it scheduled. [facility] History Medical History: Reports:: Coronary Artery Disease, Diabetes Mellitus Type 2, Heart Murmur, Hyperlipidemia, Hypertension Denies:: Cancer, Diabetes Mellitus Type 1, Internal Pacemaker, MRSA, Seizures *Have you ever received a pneumonia vaccine?: No *Have you received a flu vaccine this season?: No Other Medical History: Reports: Arthritis, Hypothyroidism, Thyroid Disease. Denies: Blood Transfusion Reaction Laterality Cases: Bilateral: Carpal Tunnel Release Other Surgeries: Yes: Cardiac Catheterization, Other (breast nodules removal). No: Pacemaker Amputation: No Fractures: No - *Social History Smoking Status: Former smoker Tobacco Type: cigarettes Alcohol Intake: never *Occupational Status:: unemployed Housing: house Household Members: spouse *Travel in the last 8 weeks: None Family Hx:: No significant family history
== END ==
PROVIDERS: Visit Provider Nurse Anesthetist, Certified Registered
DX: M51.16 Intervertebral disc disorders with radiculopathy, lumbar region (principal); M96.1 Postlaminectomy syndrome, not elsewhere classified
CPT/HCPCS: 99212; G0463

== ENCOUNTER 2021-09-09 09:21 | Day surgery (SDC) | payer BC, MEDICARE, SELFPAY ==
[2021-09-09 09:37] VITALS: BP 169/78; PULSE 91; RESP 20; TEMP 36.7; O2SAT 99; BMI 33.3
[2021-09-09 09:57] VITALS: BP 145/82; PULSE 90; RESP 18; O2SAT 96
[2021-09-09 10:01] VITALS: BP 145/82; PULSE 87; RESP 18; O2SAT 97
--- NOTE | 2021-09-09 10:03 | HMH.PMPROC ---
- Procedure Date: 09/09/21 Time: 10:03 Anesthesiologist:: Stone Cabello MD Complications:: None Pre-procedure Diagnosis:: Degenerative disc disease of lumbar spine with lumbar radiculopathy symptoms and postlaminectomy syndrome lumbar spine Post-procedure Diagnosis:: Same Indications for Procedure:: This patient is a pleasant 56-year-old white male who we are treating for low back pain with lumbar radiculopathy symptoms and postlaminectomy syndrome lumbar spine. He is doing very well with his intrathecal morphine pain pump. He is having some increasing pain in the tailbone area radiating down both legs. He did have a caudal epidural steroid injection which helped him tremendously. He would like to add bupivacaine to his mixture we will do this today. We will also decrease his dose as he is starting to have a metallic taste in his mouth with some possible side effects with his intrathecal morphine infusion. [place] and drug screen are all appropriate. He does have an antalgic gait. Motor strength of the lower extremities is 5/5. There is no gross sensory deficit. We will refill his pump he continues on periodic flow with boluses every hour. We will decrease him to 0.075 mg every hour for total daily dose of 1.8 mg/day of his intrathecal morphine 25 mg/mL and bupivacaine 5 mg/mL mixture. Procedure Details:: Informed consent was obtained and the risks and benefits of the procedure was explained to the patient. The patient was taken to the procedure room. The pump was interrogated. The area over the pump was prepped using ChloraPrep. The pump was accessed with a 22-gauge needle. Approximately 17 mL's of the intrathecal solution was withdrawn and discarded. The pump was then refilled with 20 mL's of intrathecal morphine 25 mg/mL plus bupivacaine 5 mg/mL. The pump was interrogated and the infusion was decreased to 1.8 mg/day with decreasing periodic boluses to 0.075 mg every hour. The patient tolerated the procedure well with no complication. Plan and Disposition:: We will follow-up with him in 2 weeks. Will reevaluate his symptoms at that time. We will make adjustments as needed.
[2021-09-09 10:13] VITALS: BP 147/76; PULSE 81; RESP 20; O2SAT 99
== END 2021-09-09 10:15 | disposition home or self-care (01) ==
LOC: SC.PAINP 09:24
PROVIDERS: PCP Family Medicine; Visit Provider Anesthesiology
DX: M51.16 Intervertebral disc disorders with radiculopathy, lumbar region (principal); M96.1 Postlaminectomy syndrome, not elsewhere classified
CPT/HCPCS: 95991

== ENCOUNTER → 2021-09-23 10:05 | Outpatient (POV) | payer BC, MEDICARE, SELFPAY ==
--- NOTE | 2021-09-23 10:52 | HMH.PMPROC ---
- Procedure Date: 09/23/21 Time: 10:52 Anesthesiologist:: Kvng Aranda CRNA Complications:: None Pre-procedure Diagnosis:: Due to disc disease lumbar spine. Lumbar postlaminectomy syndrome. Lumbar radiculopathy symptoms. Post-procedure Diagnosis:: Same Indications for Procedure:: Patient is a pleasant 56-year-old white male who we are treating for low back pain with lumbar radiculopathy symptoms and postlaminectomy syndrome lumbar spine. He has been doing well with intrathecal morphine pain pump. On 09/09/21 bupivacaine 5 mg/mL was added to his intrathecal morphine dose. Daily dosing was morphine 1.8 mg/day and bupivacaine 0.36 mg. Today he rates his pain a 7 out of 10. He states he is feeling much better overall. Patient is requesting a decrease in medication dose due to his pain being much more controlled since the addition of the bupivacaine and prior caudal injection. I will decrease his medication dose by 10% today giving new daily dosage of morphine 1.62 mg/day and bupivacaine 0.3 to 4 mg. Procedure Details:: Details of the procedure were explained to the patient. The patient intrathecal pain pump was interrogated. Patient's pump was turned down per the patient's request to 1.62 mg/day of morphine and 0.3 to 4 mg/day of bupivacaine. Plan and Disposition:: Patient was discharged without incident.
[2021-09-23 12:01] VITALS: BP 172/79; PULSE 92; RESP 20; TEMP 37.4; O2SAT 97; BMI 33.8
== END ==
PROVIDERS: PCP Family Medicine; Visit Provider Nurse Anesthetist, Certified Registered
DX: M51.16 Intervertebral disc disorders with radiculopathy, lumbar region (principal); M96.1 Postlaminectomy syndrome, not elsewhere classified
CPT/HCPCS: 62368; 99212; G0463

== ENCOUNTER 2021-12-16 13:07 | Day surgery (SDC) | payer BC, MEDICARE, SELFPAY ==
[2021-12-16 13:19] VITALS: BP 166/73; PULSE 94; RESP 18; TEMP 36.2; O2SAT 100; BMI 32.3
[2021-12-16 14:20] VITALS: BP 163/62; PULSE 92; RESP 18; O2SAT 96
[2021-12-16 14:25] VITALS: BP 163/62; PULSE 94; RESP 18; O2SAT 97
[2021-12-16 14:38] VITALS: BP 172/88; PULSE 87; RESP 18; O2SAT 96
--- NOTE | 2021-12-16 15:08 | EXP.PAIN.PRO ---
Procedure Date: 12/16/21 Time: 15:08 Anesthesiologist:: Stone Cabello MD Complications:: None Pre-procedure Diagnosis:: Degenerative disc disease of lumbar spine with lumbar radiculopathy symptoms and postlaminectomy syndrome lumbar spine Post-procedure Diagnosis:: Same Indications for Procedure:: The patient is a pleasant 56-year-old white male who we have been treating for low back pain with lumbar radiculopathy symptoms with postlaminectomy syndrome lumbar spine. He has an intrathecal morphine/bupivacaine pain pump in place. He is currently going at 1.60 mg/day. He feels like another disc has herniated he is having some increasing pain and some numbness down his leg. We will order CT scan to evaluate. [place] and drug screen are all appropriate. He does have an antalgic gait. Motor strength of lower extremities is 5/5. There is no gross sensory deficit. We will refill his pump and increase his infusion today to help with his pain symptoms. We will increase him to 1.8 mg/day of intrathecal morphine/bupivacaine. Procedure Details:: Informed consent was obtained and the risks and benefits of the procedure was explained to the patient. The patient was taken to the procedure room. The pump was interrogated. The area over the pump was prepped using ChloraPrep. The pump was accessed with a 22-gauge needle. Approximately 13 mL's of the intrathecal solution was withdrawn and discarded. The pump was then refilled with 20 mL's of intrathecal morphine 25 mg/mL plus bupivacaine 5 mg/mL. The pump was interrogated and the infusion was increased to 1.8 mg/day. The patient tolerated the procedure well with no complication. Plan and Disposition:: We will follow-up with him at his next pump refill. We will go ahead and order CT scan and follow-up on the CT scan. His low reservoir alarm date is March 15, 2022.
== END 2021-12-16 14:38 | disposition home or self-care (01) ==
LOC: SC.PAINP 13:08
PROVIDERS: PCP Family Medicine; Visit Provider Anesthesiology
DX: M51.16 Intervertebral disc disorders with radiculopathy, lumbar region (principal); M96.1 Postlaminectomy syndrome, not elsewhere classified
CPT/HCPCS: 62370

== ENCOUNTER → 2021-12-23 12:52 | Outpatient (CLI) | payer BC, MEDICARE, SELFPAY ==
--- NOTE | 2021-12-23 13:50 | CT_ITS ---
FINAL REPORT TECHNIQUE: Axial imaging of the lumbar spine was obtained without contrast. Sagittal and coronal reformatted images were also obtained and reviewed. This study was performed with techniques to keep radiation doses as low as reasonably achievable (ALARA). Individualized dose reduction techniques using automated exposure control or adjustment of mA and/or kV according to the patient''s size were employed. CLINICAL HISTORY: BACK PAIN FINDINGS: There is fusion of L4-S1. A spinal stimulator is present. There is no fracture. The vertebral alignment is normal. There are mild and moderate degenerative changes. T9-T10: There is an annular bulge, facet arthropathy and vertebral osteophytes. A right paracentral disc protrusion indents the thecal sac. T10-T11: There is an annular bulge with vertebral osteophytes. There is moderate right and mild left neural foraminal narrowing. T11-T12: There is an annular bulge with vertebral osteophytes. There is mild left neural foraminal narrowing. T12-L1: There is an annular bulge, facet arthropathy and vertebral osteophytes. There is mild bilateral neural foraminal narrowing. L1-L2: There is an annular bulge, facet arthropathy and vertebral osteophytes. There is mild bilateral neural foraminal narrowing. L2-L3: There is an annular bulge, facet arthropathy and vertebral osteophytes. There is severe right and moderate left neural foraminal narrowing. There are L2 laminectomies. L3-L4: There is an annular bulge, facet arthropathy and vertebral osteophytes. There is moderate bilateral neural foraminal narrowing. There is mild central canal stenosis with an AP thecal sac diameter of 8 mm. L4-L5: There is fusion at this level. There is mild bilateral neural foraminal narrowing. There are L4 laminectomies. L5-S1: There is fusion at this level. There is mild bilateral neural foraminal narrowing. There are L5 laminectomies. IMPRESSION: Fusion of L4-S1 with L2, L4, and L5 laminectomies. Multilevel degenerative disc disease with areas of neural foraminal narrowing and central canal stenosis. Right paracentral disc protrusion at T9-T10.. Reviewed, Interpreted and Dictated by Star Fields III, MD Transcribed by Dominic Cook Authenticated and [facility]
== END ==
PROVIDERS: PCP Family Medicine; Visit Provider Nurse Practitioner Family
DX: M54.50 Low back pain, unspecified (principal)
CPT/HCPCS: 72131

== ENCOUNTER → 2022-01-05 12:54 | Outpatient (POV) | payer BC, MEDICARE, SELFPAY ==
[2022-01-05 13:22] VITALS: BP 209/80; PULSE 98; RESP 18; TEMP 36.9; O2SAT 97; BMI 33.0
--- NOTE | 2022-01-05 13:25 | EXP.PAIN.SOA ---
[facility] Pain Management SOAP Note Subjective:: Patient is a pleasant 56-year-old male who presents today for follow-up of CT of his lumbar spine. We are currently treating the patient for degenerative disc disease of lumbar spine with lumbar radiculopathy symptoms, postlaminectomy syndrome of his lumbar spine. Today the patient rates his pain a 8 out of 10. He states the pain is primarily in his mid to low back that radiates into his hips primarily the left side. He is managed currently with a intrathecal pain pump of morphine 25 mg/mL with a daily dose of 1.8 mg/day and bupivacaine 5 mg/mL with 0.36 mg/day. Patient denies any side effects from this medication. He states this medication does adequately help manage his pain symptoms. At our last visit on 12/16/2021 we did give him a increase of his intrathecal medication however at today's visit he states he has not really noticed any difference or improvement in his pain symptoms. Previously the patient has had injective therapy in the past that has provided significant improvement of his symptoms. Patient is also managed with testosterone therapy by Dr. Ronn Garcia. His [place] is [id number]. It is been reviewed and appropriate. Review of Systems: General: No recent weight changes, no fever, no sleep disturbances Respiratory: No cough, no shortness of air, no recurring pulmonary infections Cardiovascular/peripheral vascular: No chest pain, no palpitations, no edema, no shortness of breath Gastrointestinal: No new onset incontinence, normal bowel movements reported Genitourinary: No new onset incontinence Musculoskeletal: Mid/low back pain, left hip pain Psychiatric: [Normal mood/affect] Neurological: [Denies weakness in extremities], [denies balance issues] Objective:: Physical Exam: General: Alert and oriented x3, no acute distress, pleasant and cooperative Lungs: Respirations even and unlabored, symmetrical chest expansion Eyes: PERRL Musculoskeletal: Flexion and extension of lumbar [spine] somewhat guarded secondary to pain, [antalgic gait noted] Neurological: Speech clear, no gross sensory deficit CLINICAL HISTORY: BACK PAIN FINDINGS: There is fusion of L4-S1.? A spinal stimulator is present. There is no fracture. The vertebral alignment is normal.? There are mild and moderate degenerative changes.? ? T9-T10:? There is an annular bulge, facet arthropathy and vertebral osteophytes. A right paracentral disc protrusion indents the thecal sac. T10-T11:? There is an annular bulge with vertebral osteophytes. There is moderate right and mild left neural foraminal narrowing.? T11-T12:? There is an annular bulge with vertebral osteophytes.? There is mild left neural foraminal narrowing. T12-L1: There is an annular bulge, facet arthropathy and vertebral osteophytes.? There is mild bilateral neural foraminal narrowing. ? ? L1-L2: There is an annular bulge, facet arthropathy and vertebral osteophytes.? There is mild bilateral neural foraminal narrowing. ? ? L2-L3:? There is an annular bulge, facet arthropathy and vertebral osteophytes.? There is severe right and moderate left neural foraminal narrowing. There are L2 laminectomies. ? ? L3-L4:? There is an annular bulge, facet arthropathy and vertebral osteophytes.? There is moderate bilateral neural foraminal narrowing.? There is mild central canal stenosis with an AP thecal sac diameter of 8 mm. L4-L5:? There is fusion at this level.? There is mild bilateral neural foraminal narrowing.? There are L4 laminectomies. ? ? L5-S1:? There is fusion at this level.? There is mild bilateral neural foraminal narrowing.? There are L5 laminectomies. IMPRESSION: Fusion of L4-S1 with L2, L4, and L5 laminectomies.? ? Multilevel degenerative disc disease with areas of neural foraminal narrowing and central canal stenosis.? ? Right paracentral disc protrusion at T9-T10.. Reviewed, Interpreted and Dictated by Star Fields III, MD Transcribed by Dominic Sierra
== END ==
PROVIDERS: Visit Provider Nurse Practitioner Family
DX: M51.16 Intervertebral disc disorders with radiculopathy, lumbar region (principal); M96.1 Postlaminectomy syndrome, not elsewhere classified; M25.552 Pain in left hip; Z79.899 Other long term (current) drug therapy
CPT/HCPCS: 99212; G0463

== ENCOUNTER 2022-01-17 14:01 | Day surgery (SDC) | payer BC, MEDICARE, SELFPAY ==
[2022-01-17 14:16] VITALS: BP 181/77; PULSE 68; RESP 18; O2SAT 97; BMI 33.0
[2022-01-17 14:45] VITALS: RESP 18; O2SAT 99
[2022-01-17 14:48] VITALS: BP 186/80; PULSE 90; RESP 18; O2SAT 98
[2022-01-17 14:58] VITALS: BP 156/99; PULSE 70; RESP 18; O2SAT 98
--- NOTE | 2022-01-17 15:01 | EXP.PAIN.PRO ---
Procedure Date: 01/17/22 Time: 14:40 Anesthesiologist:: Kvng Aranda CRNA Complications:: None Pre-procedure Diagnosis:: Degenerative disc disease lumbar spine multilevels. Lumbar radiculopathy. Lumbar postlaminectomy syndrome Post-procedure Diagnosis:: Same. Indications for Procedure:: Patient is a very pleasant 56-year-old male that comes our clinic today for lumbar epidural steroid injection. He is scheduled for the L2-3 level. However, his last visit I gave him a caudal epidural steroid injection and he is reporting today his lumbar spine is still essentially pain-free. He is doing very well from his previous injection. However, his main complaint today is high lumbar low thoracic spine pain that he describes as constant, dull, aching, sharp and stabbing at times. He does report some radicular symptoms wrapping around his chest wall on the left and right side. I reviewed his CT scan with him. CT scan shows disc bulge multilevel thoracic spine. Specifically, T10-11, T11-12, T12-L1. After evaluation under fluoroscopy I will give the injection at T12-L1. Procedure Details:: Procedure: Lumbar epidural steroid injection under fluoroscopy Informed consent was obtained and the risks and benefits of the procedure were explained to the patient. The patient was taken to the procedure room and noninvasive monitors placed, including noninvasive blood pressure cuff and pulse oximeter. The back was viewed using C-arm Fluoroscopy and prepped using Betadine as a cleansing solution and the T12-L1 interspace was palpated. Skin and subcutaneous tissues were anesthetized using lidocaine 1.5% and a 25-gauge needle. After this, an 18-gauge Touhy epidural needle was placed into the T12-L1 interspace and advanced using fluoroscopic guidance and loss of resistance to air until the epidural space was encountered. After confirmation of needle placement in the epidural space, with dye, a solution containing normal saline, 4 mL and Depo-Medrol 80 mg were incrementally injected into the lumbar epidural space. The patient tolerated the procedure well with no complications. The patient was observed in the Pain Clinic and then discharged home neurologically intact. Plan and Disposition:: Patient was discharged without incident.
== END 2022-01-17 14:58 | disposition home or self-care (01) ==
PROVIDERS: PCP Family Medicine; Visit Provider Nurse Anesthetist, Certified Registered
DX: M51.16 Intervertebral disc disorders with radiculopathy, lumbar region (principal); M96.1 Postlaminectomy syndrome, not elsewhere classified
CPT/HCPCS: 62323; J1040

== ENCOUNTER → 2022-02-02 10:40 | Outpatient (POV) | payer BC, MEDICARE, SELFPAY ==
--- NOTE | 2022-02-02 10:58 | EXP.PAIN.PRO ---
Procedure Date: 02/02/22 Time: 10:58 Anesthesiologist:: Kamryn Klein APRN Complications:: None Pre-procedure Diagnosis:: Degenerative disc disease lumbar spine multilevels with lumbar radiculopathy symptoms, lumbar postlaminectomy syndrome Post-procedure Diagnosis:: Same Indications for Procedure:: Patient is a pleasant 56-year-old male who presents today for intrathecal pain pump reprogramming adjustment. The patient is being treated for degenerative disc disease lumbar spine multilevels with lumbar radiculopathy symptoms, lumbar postlaminectomy syndrome. Patient is currently being managed with morphine 25 mg/mL with a daily dose of 1.8 mg/day and bupivacaine 5 mg/mL with a daily dose of 0.36 mg/day. Patient denies any side effects from this medication. Patient rates pain a 7 out of 10. Patient did have a lumbar epidural steroid injection at T12-L1 on 01/17/2022. Patient states he got less than 50% relief following this injection and it only lasted for approximately 2 days. Patient denies any new trauma or injury. He denies any change in location or type of pain he is experiencing. Drug screen is appropriate. [facility] [id number] has been reviewed and is appropriate. Physical exam General: Alert and oriented x3, no acute distress, pleasant and cooperative Lungs: Respirations even and unlabored, symmetrical chest expansion Eyes: PERRL Musculoskeletal: Flexion and extension of lumbar [spine] somewhat guarded secondary to pain, [antalgic gait noted] Neurological: Speech clear, no gross sensory deficit Procedure Details:: Informed consent was obtained and the risk and benefits of the procedure were explained to the patient. Patient was taken to the procedure room where noninvasive monitoring was placed including noninvasive blood pressure cuff and pulse oximeter. Patient's pump was interrogated and was reprogrammed to [morphine 25 mg/mL with a daily dose of 2 mg/day and bupivacaine 5 mg/mL with a daily dose of 0.4 mg/day]. The patient tolerated the procedure well with no complications. Plan and Disposition:: Patient will follow-up in clinic in 2 weeks for reevaluation of symptoms and follow-up. Patient has been instructed to contact the clinic with any concerns before the next appointment. Dr. Cabello has reviewed this note and agrees with this plan of care. This note was dictated using voice recognition software and make contain errors or omissions. -- It Is medically necessary for this patient to continue to have their intrathecal pump refilled at regular intervals. This patient had an intrathecal pain pump implanted after meeting criteria of chronic intractable pain for greater than 3 months and failing conservative treatments. Patient has committed and been compliant to the treatment plan and all planned follow up care. Since implantation of the intrathecal pain pump, the patient has had decreased pain and been more functional. Oral medications have been reduced including intake of oral opioids. Patient continues to do well with intrathecal therapy with decrease in pain symptoms and increase in functional status. Stopping intrathecal medications can lead to life threatening withdrawal, seizures, cardiac arrest, severe pain, and possible . Pumps that are not refilled at regular intervals can be damages and cause and need for replacement. We continually titrate dose and concentration to optimize pain relief and function. We are limited in concentration for certain drugs to safely deliver medications through the pump and stay within the recommendations from the Polyanalgesic Consensus Committee Guidelines. Depending on dose and concentration these pumps may need to be refilled sooner than 3 months as we titrate.
[2022-02-02 12:04] VITALS: BP 172/86; PULSE 92; RESP 18; TEMP 37.1; O2SAT 99; BMI 33.3
== END | disposition home or self-care (01) ==
PROVIDERS: PCP Family Medicine; Visit Provider Nurse Practitioner Family
DX: M51.16 Intervertebral disc disorders with radiculopathy, lumbar region (principal); M96.1 Postlaminectomy syndrome, not elsewhere classified; Z79.899 Other long term (current) drug therapy
CPT/HCPCS: 62368; 99213; G0463

== ENCOUNTER → 2022-02-20 10:33 | Outpatient (POV) | payer BC, MEDICARE, SELFPAY ==
[2022-02-20 11:31] VITALS: BP 176/62; PULSE 84; RESP 18; O2SAT 94; BMI 33.0
--- NOTE | 2022-02-20 12:26 | EXP.PAIN.PRO ---
Procedure Date: 02/20/22 Time: 12:10 Anesthesiologist:: Kamryn Klein APRN Complications:: None Pre-procedure Diagnosis:: Degenerative disc disease of lumbar spine with lumbar radiculopathy symptoms, postlaminectomy syndrome of lumbar spine Post-procedure Diagnosis:: Same Indications for Procedure:: Patient is a pleasant 56-year-old male who presents today for intrathecal pain pump adjustment and reprogram. The patient is being treated for degenerative disc disease of lumbar spine multilevels with lumbar radiculopathy symptoms, postlaminectomy syndrome of the lumbar spine. Patient is currently being managed with morphine 25 mg/mL with a daily dose of 2 mg/day. Patient denies any side effects from this medication. Patient rates pain a 7 out of 10. Patient denies any new trauma or injury. Patient states he feels he has had worsening back pain over the last several months. We have done injective therapy in the past that provided significant improvement of his symptoms however only lasting approximately 1 week. Patient does have a history of previous back surgery where they did place metal rods. Patient did have additional surgery by Dr. Parkinson in May to debulk his spinal stenosis however he states he has not had significant improvement. Patient did state he is recently been to his primary care provider where they did an EKG and stated he did have a slight arrhythmia. Patient states he did see his motion picture operator Dr. Brandon in the past at [place] however it has been a while since he has had a follow-up. Drug screen is appropriate. [facility] [id number] has been reviewed and is appropriate. Physical exam General: Alert and oriented x3, no acute distress, pleasant and cooperative Lungs: Respirations even and unlabored, symmetrical chest expansion Eyes: PERRL Musculoskeletal: Flexion and extension of thoracic and lumbar [spine] somewhat guarded secondary to pain, [antalgic gait noted] Neurological: Speech clear, no gross sensory deficit Procedure Details:: Informed consent was obtained and the risk and benefits of the procedure were explained to the patient. Patient was taken to the procedure room where noninvasive monitoring was placed including noninvasive blood pressure cuff and pulse oximeter. Patient's pump was interrogated and was reprogrammed to morphine 25 mg/mL with a daily dose of 2.2 mg/day. The patient tolerated the procedure well with no complications. Plan and Disposition:: Patient is experiencing significant pain in his mid/low back. Patient did have limited range of motion of his thoracic and lumbar spine during today's visit. I have discussed with the patient regarding having a repeat thoracic epidural steroid injection. Risk and benefits were discussed with the patient. He would like to proceed forward with this plan of care. He is not currently on any blood thinners. I have also counseled the patient to follow-up with his motion picture operator. We will send a referral back to Dr. Parkinson for his worsening back pain. We will schedule the patient for a TESI T12-L1. Patient has been instructed to contact the clinic with any concerns before the next appointment. Dr. Cabello has reviewed this note and agrees with this plan of care. This note was dictated using voice recognition software and make contain errors or omissions. -- It Is medically necessary for this patient to continue to have their intrathecal pump refilled at regular intervals. This patient had an intrathecal pain pump implanted after meeting criteria of chronic intractable pain for greater than 3 months and failing conservative treatments. Patient has committed and been compliant to the treatment plan and all planned follow up care. Since implantation of the intrathecal pain pump, the patient has had decreased pain and been more functional. Oral medications have been reduced including intake of oral opioids. Patient continues to do well with intrathecal therapy with decrea
== END | disposition home or self-care (01) ==
PROVIDERS: PCP Family Medicine; Visit Provider Nurse Practitioner Family
DX: M51.16 Intervertebral disc disorders with radiculopathy, lumbar region (principal); M96.1 Postlaminectomy syndrome, not elsewhere classified
CPT/HCPCS: 62368; 99212; G0463

== ENCOUNTER 2022-02-24 13:44 | Day surgery (SDC) | payer BC, MEDICARE, SELFPAY ==
[2022-02-24 13:49] VITALS: BP 167/101; PULSE 94; RESP 18; TEMP 36.6; O2SAT 96; BMI 33.0
[2022-02-24 14:02] VITALS: BP 185/86; PULSE 91; RESP 18; O2SAT 98
--- NOTE | 2022-02-24 14:08 | P.PCN_ITS ---
Procedure Date: 02/24/22 Time: 14:00 Anesthesiologist:: Kvng Aranda CRNA Complications:: None Pre-procedure Diagnosis:: Degenerative disc disease lumbar spine multilevels. Lumbar radiculopathy. Lumbar postlaminectomy syndrome. Lumbar post fusion syndrome. Post-procedure Diagnosis:: Same. Indications for Procedure:: This patient is a pleasant 56-year-old male that comes our clinic today for T12- L1 epidural steroid injection. Patient had 1 epidural steroid injection at this level a month ago. He reports slight improvement terms of his thoracic and lumbar back pain. However, his main complaint today is high lumbar low thoracic spine pain that he describes as constant, dull, aching, sharp and stabbing at times.? He does report some radicular symptoms wrapping around his chest wall on the left and right side.? I reviewed his CT scan with him.? CT scan shows disc bulge multilevel thoracic spine.? Specifically, T10-11, T11-12, T12-L1.? After evaluation under fluoroscopy I will give the injection at T12-L1. Procedure Details:: Procedure: Lumbar epidural steroid injection under fluoroscopy Informed consent was obtained and the risks and benefits of the procedure were explained to the patient. The patient was taken to the procedure room and noninvasive monitors placed, including noninvasive blood pressure cuff and pulse oximeter. The back was viewed using C-arm Fluoroscopy and prepped using Chloraprep as a cleansing solution and the T12-L1 interspace was palpated. Skin and subcutaneous tissues were anesthetized using lidocaine 1.5% and a 25-gauge needle. After this, an 18-gauge Touhy epidural needle was placed into the T12-L1 interspace and advanced using fluoroscopic guidance and loss of resistance to air until the epidural space was encountered. After confirmation of needle placement in the epidural space, with dye, a solution containing normal saline, 3 mL and Depo-Medrol 80 mg were incrementally injected into the lumbar epidural space. The patient tolerated the procedure well with no complications. The patient was observed in the Pain Clinic and then discharged home neurologically intact. Plan and Disposition:: Patient was discharged without incident.
[2022-02-24 14:15] VITALS: BP 146/77; PULSE 88; RESP 20
== END 2022-02-24 14:16 | disposition home or self-care (01) ==
PROVIDERS: PCP Family Medicine; Visit Provider Nurse Anesthetist, Certified Registered
DX: M51.16 Intervertebral disc disorders with radiculopathy, lumbar region (principal); M96.1 Postlaminectomy syndrome, not elsewhere classified
CPT/HCPCS: 62323; J1040

== ENCOUNTER → 2022-03-07 13:02 | Day surgery (SDC) | payer BC, MEDICARE, SELFPAY ==
[2022-03-07 13:19] VITALS: BP 171/81; PULSE 86; RESP 18; TEMP 37.1; O2SAT 97; BMI 33.0
[2022-03-07 13:48] VITALS: BP 184/88; PULSE 72; RESP 18; O2SAT 98
--- NOTE | 2022-03-07 13:55 | EXP.PAIN.PRO ---
Procedure Date: 03/07/22 Time: 13:50 Anesthesiologist:: Kvng Aranda CRNA Complications:: None Pre-procedure Diagnosis:: Degenerative disc disease lumbar spine multilevels. Lumbar radiculopathy. Lumbar postlaminectomy syndrome Post-procedure Diagnosis:: Same. Indications for Procedure:: This patient is a pleasant 56-year-old male that comes our clinic today for intrathecal pain pump refill. Patient is currently being managed with morphine sulfate 25 mg/mL with a daily dose of 2 mg/day. Also, bupivacaine 5 mg/mL at 0.44 mg/day. Patient states he is continue to have some upper thoracic pain. We have addressed this with several injections that were not effective. Patient also had thoracic CT scan and is being referred to spine surgery for consultation. Procedure Details:: Details of the procedure were explained to the patient. The patient was placed in the sitting position. The area over the pump was cleaned using chlorhexidine as a cleansing solution. Using a 22-gauge needle the pump was accessed with ease. 12.5 mL of solution was withdrawn and discarded appropriately. 13 mL was expected. The pump was then filled with 20 cc of solution containing morphine sulfate 25 mg/mL and bupivacaine 5 mg/mL. Patient states he is doing well from the lumbar spine down with his current rate. We will continue as is. Patient tolerated procedure without difficulty. There are no complications Plan and Disposition:: Patient was discharged without incident
[2022-03-07 14:00] VITALS: BP 164/81; PULSE 82; RESP 18; O2SAT 97
== END | disposition home or self-care (01) ==
PROVIDERS: PCP Family Medicine; Visit Provider Nurse Anesthetist, Certified Registered
DX: M51.16 Intervertebral disc disorders with radiculopathy, lumbar region (principal); M96.1 Postlaminectomy syndrome, not elsewhere classified
CPT/HCPCS: 95991

== ENCOUNTER → 2022-03-08 10:56 | Outpatient (POV) | payer BC, MEDICARE, SELFPAY ==
[2022-03-08 11:22] VITALS: BP 184/83; PULSE 91; RESP 20; O2SAT 95; BMI 33.0
--- NOTE | 2022-03-08 11:33 | EXP.PAIN.PRO ---
Procedure Date: 03/08/22 Time: 11:34 Anesthesiologist:: Kamryn Klein APRN Complications:: None Pre-procedure Diagnosis:: Degenerative disc disease of lumbar spine multilevels with lumbar radiculopathy symptoms lumbar postlaminectomy syndrome Post-procedure Diagnosis:: Same Indications for Procedure:: Patient is a pleasant 56-year-old male who presents today for intrathecal pain pump adjustment and reprogram. The patient is being treated for degenerative disc disease of lumbar spine multilevels with lumbar radiculopathy symptoms, lumbar postlaminectomy syndrome. Patient is currently being managed with periodic flow of morphine 25 mg/mL with a daily dose of 2.208 mg/day and bupivacaine 5 mg/mL with a daily dose of 0.4416 mg/day. Patient was just changed from continuous flow to periodic yesterday and states that he was woken up early this morning with numbness and tingling in his bilateral lower extremities. Patient does state that he seems to have better pain coverage with the periodic flow however he is concerned with his leg symptoms. Patient also states that he is experiencing some headache and GI upset.. Patient rates pain a 7 out of 10. Drug screen is appropriate. Physical exam General: Alert and oriented x3, no acute distress, pleasant and cooperative Lungs: Respirations even and unlabored, symmetrical chest expansion Eyes: PERRL Musculoskeletal: Flexion and extension of lumbar [spine] somewhat guarded secondary to pain, [antalgic gait noted] Neurological: Speech clear, no gross sensory deficit Procedure Details:: Informed consent was obtained and the risk and benefits of the procedure were explained to the patient. Patient was taken to the procedure room where noninvasive monitoring was placed including noninvasive blood pressure cuff and pulse oximeter. Patient's pump was interrogated and was reprogrammed to morphine 25 mg/mL with a daily dose of 1.98 mg/day and bupivacaine 5 mg/mL with a daily dose of 0.396 mg/day. The patient tolerated the procedure well with no complications. Plan and Disposition:: Patient is already scheduled to return to clinic on March 23. I have counseled the patient that he can continue to keep this appointment date however that if his leg numbness does not get better following today's decrease of pump medication that he is to call and come in sooner for an additional decrease. Patient has been instructed to contact the clinic with any concerns before the next appointment. Dr. Cabello has reviewed this note and agrees with this plan of care. This note was dictated using voice recognition software and make contain errors or omissions. -- It Is medically necessary for this patient to continue to have their intrathecal pump refilled at regular intervals. This patient had an intrathecal pain pump implanted after meeting criteria of chronic intractable pain for greater than 3 months and failing conservative treatments. Patient has committed and been compliant to the treatment plan and all planned follow up care. Since implantation of the intrathecal pain pump, the patient has had decreased pain and been more functional. Oral medications have been reduced including intake of oral opioids. Patient continues to do well with intrathecal therapy with decrease in pain symptoms and increase in functional status. Stopping intrathecal medications can lead to life threatening withdrawal, seizures, cardiac arrest, severe pain, and possible . Pumps that are not refilled at regular intervals can be damages and cause and need for replacement. We continually titrate dose and concentration to optimize pain relief and function. We are limited in concentration for certain drugs to safely deliver medications through the pump and stay within the recommendations from the Polyanalgesic Consensus Committee Guidelines. Depending on dose and concentration these pumps may need to be refilled sooner than 3 months as we titrate.
== END | disposition home or self-care (01) ==
PROVIDERS: PCP Family Medicine; Visit Provider Nurse Practitioner Family
DX: M51.16 Intervertebral disc disorders with radiculopathy, lumbar region (principal); M96.1 Postlaminectomy syndrome, not elsewhere classified
CPT/HCPCS: 62368; 99213; G0463

== ENCOUNTER → 2022-03-09 13:39 | Outpatient (POV) | payer BC, MEDICARE, SELFPAY ==
[2022-03-09 13:49] VITALS: BP 164/80; PULSE 84; RESP 18; O2SAT 99; BMI 33.0
--- NOTE | 2022-03-09 14:04 | EXP.PAIN.PRO ---
Procedure Date: 03/09/22 Time: 14:06 Anesthesiologist:: Kamryn Klein APRN Complications:: None Pre-procedure Diagnosis:: Degenerative disc disease of lumbar spine multilevels with lumbar radiculopathy symptoms, postlaminectomy syndrome lumbar spine Post-procedure Diagnosis:: Same Indications for Procedure:: Patient is a pleasant 57-year-old male who presents today for intrathecal pain pump adjustment and reprogram. The patient is being treated for degenerative disc disease of lumbar spine with lumbar radiculopathy symptoms, postlaminectomy syndrome lumbar spine. Patient is currently being managed with periodic flow morphine 25 mg/mL with a daily dose of 1.8 mg/day and bupivacaine 5 mg/mL with a daily dose of 0.396 mg/day. Patient states he has had 2 falls from yesterday. Patient states that he was just walking and his legs gave out. He is requesting we go back to continuous flow instead of the periodic. Patient does state that he still continues to have some upset stomach. Physical exam General: Alert and oriented x3, no acute distress, pleasant and cooperative Lungs: Respirations even and unlabored, symmetrical chest expansion Eyes: PERRL Musculoskeletal: Flexion and extension of lumbar [spine] somewhat guarded secondary to pain, [antalgic gait noted] Neurological: Speech clear, no gross sensory deficit Procedure Details:: Informed consent was obtained and the risk and benefits of the procedure were explained to the patient. Patient was taken to the procedure room where noninvasive monitoring was placed including noninvasive blood pressure cuff and pulse oximeter. Patient's pump was interrogated and was reprogrammed to continuous flow of morphine 25 mg/mL with a daily dose of 1.98 mg/day and bupivacaine 5 mg/mL with a daily dose of 0.396 mg/day. The patient tolerated the procedure well with no complications. Plan and Disposition:: Patient is scheduled for follow-up appointment on March 23. I have counseled the patient to contact us sooner if he has any additional issues. I will order the patient Zofran 4 mg and provide 30 tablets. Patient will return to clinic on March 23 for reevaluation of symptoms and follow-up. Patient has been instructed to contact the clinic with any concerns before the next appointment. Dr. Cabello has reviewed this note and agrees with this plan of care. This note was dictated using voice recognition software and make contain errors or omissions. -- It Is medically necessary for this patient to continue to have their intrathecal pump refilled at regular intervals. This patient had an intrathecal pain pump implanted after meeting criteria of chronic intractable pain for greater than 3 months and failing conservative treatments. Patient has committed and been compliant to the treatment plan and all planned follow up care. Since implantation of the intrathecal pain pump, the patient has had decreased pain and been more functional. Oral medications have been reduced including intake of oral opioids. Patient continues to do well with intrathecal therapy with decrease in pain symptoms and increase in functional status. Stopping intrathecal medications can lead to life threatening withdrawal, seizures, cardiac arrest, severe pain, and possible . Pumps that are not refilled at regular intervals can be damages and cause and need for replacement. We continually titrate dose and concentration to optimize pain relief and function. We are limited in concentration for certain drugs to safely deliver medications through the pump and stay within the recommendations from the Polyan[employer]ges[employer] Consensus Committee Guidelines. Depending on dose and concentration these pumps may need to be refilled sooner than 3 months as we titrate.
== END | disposition home or self-care (01) ==
PROVIDERS: PCP Family Medicine; Visit Provider Nurse Practitioner Family
DX: M51.16 Intervertebral disc disorders with radiculopathy, lumbar region (principal); M96.1 Postlaminectomy syndrome, not elsewhere classified; Z79.899 Other long term (current) drug therapy
CPT/HCPCS: 62368; 99213; G0463

== ENCOUNTER → 2022-03-23 15:20 | Outpatient (POV) | payer BC, MEDICARE, SELFPAY ==
[2022-03-23 15:28] VITALS: BP 161/80; PULSE 79; RESP 18; O2SAT 97; BMI 34.4
--- NOTE | 2022-03-23 15:46 | EXP.PAIN.PRO ---
Procedure Date: 03/23/22 Time: 15:46 Anesthesiologist:: Kamryn Klein APRN Complications:: None Pre-procedure Diagnosis:: Degenerative disc disease of lumbar spine multilevels with lumbar radiculopathy symptoms, lumbar postlaminectomy syndrome Post-procedure Diagnosis:: Same Indications for Procedure:: Patient is a pleasant 57-year-old male who presents today for intrathecal pain pump reprogramming adjustment. The patient is being treated for degenerative disc disease of lumbar spine multilevels with lumbar radiculopathy symptoms, lumbar postlaminectomy syndrome. Patient is currently being managed with morphine 25 mg/mL with a daily dose of 1.98 mg/day and bupivacaine 5 mg/mL with a daily dose of 0.396 mg/day. Patient denies any side effects from this medication. Patient rates pain a 6 out of 10. Previously patient had been complaining of significant hot flashes and trouble sleeping as well as having episodes of waking up in the middle of the night trying to catch his breath. Patient did go to his primary care doctor today and did have multiple lab work done that did show he had issues with his thyroid as well as his testosterone levels were completely off. Patient states that his numbers were barely registering even though he is on injective therapy every 2 weeks. Patient also states it was found that he has newly diagnosed atrial fibrillation. Patient states that his primary care doctor is sending him to a customer engagement manager Dr. Brandon. Patient also states he was started on Prozac at that visit. Patient states he does not believe his symptoms were related to the pump but his primary care doctor did request that we decrease his dosage to verify that there is no correlation. Drug screen is appropriate. [facility] [id number] has been reviewed and is appropriate. Physical exam General: Alert and oriented x3, no acute distress, pleasant and cooperative Lungs: Respirations even and unlabored, symmetrical chest expansion Eyes: PERRL Musculoskeletal: Flexion and extension of lumbar [spine] somewhat guarded secondary to pain, [antalgic gait noted] Neurological: Speech clear, no gross sensory deficit Procedure Details:: Informed consent was obtained and the risk and benefits of the procedure were explained to the patient. Patient was taken to the procedure room where noninvasive monitoring was placed including noninvasive blood pressure cuff and pulse oximeter. Patient's pump was interrogated and was reprogrammed to morphine 25 mg/mL with a daily dose of 1.782 mg/day and bupivacaine 5 mg/mL with a daily dose of 0.3564 mg/day. The patient tolerated the procedure well with no complications. Plan and Disposition:: Patient will contact our office if he needs additional follow-up visits. We will see the patient back in the clinic at the next intrathecal refill. Patient has been instructed to contact the clinic with any concerns before the next appointment. Dr. Cabello has reviewed this note and agrees with this plan of care. This note was dictated using voice recognition software and make contain errors or omissions. -- It Is medically necessary for this patient to continue to have their intrathecal pump refilled at regular intervals. This patient had an intrathecal pain pump implanted after meeting criteria of chronic intractable pain for greater than 3 months and failing conservative treatments. Patient has committed and been compliant to the treatment plan and all planned follow up care. Since implantation of the intrathecal pain pump, the patient has had decreased pain and been more functional. Oral medications have been reduced including intake of oral opioids. Patient continues to do well with intrathecal therapy with decrease in pain symptoms and increase in functional status. Stopping intrathecal medications can lead to life threatening withdrawal, seizures, cardiac arrest, severe pain, and possible . Pumps that are not refilled at regular intervals ca
== END | disposition home or self-care (01) ==
PROVIDERS: PCP Family Medicine; Visit Provider Nurse Practitioner Family
DX: M51.16 Intervertebral disc disorders with radiculopathy, lumbar region (principal); M96.1 Postlaminectomy syndrome, not elsewhere classified
CPT/HCPCS: 99212; G0463

== ENCOUNTER 2022-05-19 11:56 | Day surgery (SDC) | payer MEDICARE, SELFPAY ==
[2022-05-19 12:30] VITALS: BP 153/72; BP 188/93; PULSE 79; PULSE 84; RESP 18; RESP 19; O2SAT 98; BMI 29.9
[2022-05-19 13:15] VITALS: BP 154/99; PULSE 83; RESP 20
--- NOTE | 2022-05-19 14:11 | P.PCN_ITS ---
Procedure Date: 05/19/22 Time: 14:11 Anesthesiologist:: Stone Cabello MD Complications:: None Pre-procedure Diagnosis:: Degenerative disc disease of lumbar spine with lumbar radiculopathy symptoms and postlaminectomy syndrome lumbar spine Post-procedure Diagnosis:: Same Indications for Procedure:: This patient is a pleasant 57-year-old white male who we are treating for low back pain with lumbar radiculopathy symptoms and postlaminectomy syndrome lumbar spine he has an intrathecal morphine/bupivacaine pain pump. He is having some increasing pain. He does not want to make adjustments because every time he does adjustments he does have some side effects or reactions. He currently is g oing at 1.78 mg/day of intrathecal morphine/bupivacaine. He does have 14 mL on his reservoir. [place] and drug screen are all appropriate. He does have an antalgic gait. Motor strength of lower extremities is 5/5. There is no gross sensory deficit. He does have pain over his left knee status post left knee total arthroplasty. Talked about genicular blocks to help with his post total knee arthroplasty pain. Procedure Details:: Informed consent was obtained and the risks and benefits of the procedure was explained to the patient. The patient was taken to the procedure room. The pump was interrogated. The area over the pump was prepped using ChloraPrep. The pump was accessed with a 22-gauge needle. Approximately 14 mL mL's of the intrathecal solution was withdrawn and discarded. The pump was then refilled with 20 mL's of intrathecal morphine 25 mg per ml plus bupivacaine 5 mg per ml. The pump was interrogated and the infusion was continued at 1.78 mg/day. The patient tolerated the procedure well with no complication. Plan and Disposition:: We will see the patient back in the clinic we will assess his knee pain and plan on left genicular nerve blocks to his left knee. Furthermore we will reorder his medication and decrease his concentration to give him more volume. We will decrease him down to morphine 20 mg/mL plus bupivacaine 5 mg per mill. We will bring him back to early prior to his next refill.
== END 2022-05-19 13:15 | disposition home or self-care (01) ==
PROVIDERS: PCP Family Medicine; Visit Provider Anesthesiology
DX: Z45.1 Encounter for adjustment and management of infusion pump (principal); M51.16 Intervertebral disc disorders with radiculopathy, lumbar region; M96.1 Postlaminectomy syndrome, not elsewhere classified
CPT/HCPCS: 95991

== ENCOUNTER 2022-05-30 11:29 | Day surgery (SDC) | payer MEDICARE, SELFPAY ==
[2022-05-30 11:51] VITALS: BP 170/74; PULSE 87; RESP 18; TEMP 36.7; O2SAT 98; BMI 35.9
[2022-05-30 12:00] VITALS: BP 204/84; PULSE 93; RESP 18; O2SAT 97
[2022-05-30 12:02] VITALS: BP 204/84; PULSE 93; RESP 18; O2SAT 97
[2022-05-30 12:04] VITALS: BP 179/81; PULSE 87; RESP 18; O2SAT 98
--- NOTE | 2022-05-30 12:09 | P.PCN_ITS ---
Procedure Date: 05/30/22 Time: 11:45 Anesthesiologist:: Kvng Aranda CRNA Complications:: None Pre-procedure Diagnosis:: Chronic left knee pain. Status post total left knee replacement 2019. Post-procedure Diagnosis:: Same. Indications for Procedure:: This patient is a pleasant 57-year-old male that we currently managed with intrathecal morphine. He is doing very well in regards to his pump. However he is having chronic left knee pain after having total knee replacement 2019. He describes the pain as constant, dull, aching. He rates the pain 8/10. Procedure Details:: Left knee genicular block Informed consent was obtained and the risk and benefits of the procedure was explained to the patient. The patient was taken to the procedure room. The left knee was prepped using ChloraPrep. I placed 22-gauge needles into the area of t he left superior medial genicular nerve, left superior lateral genicular nerve and left inferior medial genicular nerve. Needle placement was confirmed in AP and lateral views with dye. We then injected bupivacaine 0.25% 3 mL's and Depo-Medrol 25 mg into each area of the left superior medial genicular nerve, right superior lateral genicular nerve and left inferior medial genicular nerve. Patient tolerated the procedure well with no complications. Plan and Disposition:: Patient was discharged without incident. He reports 100% pain-free in terms of his left knee pain with ambulation.
== END 2022-05-30 12:04 | disposition home or self-care (01) ==
PROVIDERS: PCP Family Medicine; Visit Provider Nurse Anesthetist, Certified Registered
DX: M17.12 Unilateral primary osteoarthritis, left knee (principal); M25.562 Pain in left knee; Z96.652 Presence of left artificial knee joint; G89.29 Other chronic pain; Z97.8 Presence of other specified devices
CPT/HCPCS: 64454; J1040

== ENCOUNTER → 2022-06-19 09:09 | Outpatient (POV) | payer MEDICARE, SELFPAY ==
--- NOTE | 2022-06-19 10:04 | EXP.PAIN.SOA ---
[facility] Pain Management SOAP Note Subjective:: Patient is a pleasant 57-year-old male who presents today from follow-up of left genicular nerve block on 05/30/2022. We are currently treating the patient for degenerative disc disease of lumbar spine multilevels with lumbar radiculopathy symptoms, lumbar postlaminectomy syndrome, left knee pain. Today he states he has had at least 70% improvement following this injections. He states it did take away the burning sensation he was experiencing in his left knee. Patient does rate his pain a 6 out of 10 today. He does state that it is slowly coming back in his left knee however right now it is still very tolerable and much better than what it had been prior to this injection. He continues to have leg weakness that has been going on for some time. Patient states he has been to physical therapy in the past however this did not provide significant improvement and often made his pain worse. Patient does have a intrathecal pain pump in place with morphine 25 mg/mL with a daily dose of 1.782 mg/day and bupivacaine 5 mg/mL with a daily dose of 0.3564 mg/day. Patient denies any side effects from this medication. He states that his next medication refill they are decreasing his drug concentration. His [place] is [phone]. Its been reviewed and appropriate. Review of Systems: General: No recent weight changes, no fever, no sleep disturbances Respiratory: No cough, no shortness of air, no recurring pulmonary infections Cardiovascular/peripheral vascular: No chest pain, no palpitations, no edema, no shortness of breath Gastrointestinal: No new onset incontinence, normal bowel movements reported Genitourinary: No new onset incontinence Musculoskeletal: Low back pain, Psychiatric: [Normal mood/affect] Neurological: [Denies weakness in extremities], [denies balance issues] Objective:: Physical Exam: General: Alert and oriented x3, no acute distress, pleasant and cooperative Lungs: Respirations even and unlabored, symmetrical chest expansion Eyes: PERRL Musculoskeletal: Flexion and extension of lumbar [spine] somewhat guarded secondary to pain, [antalgic gait noted] Neurological: Speech clear, no gross sensory deficit Assessment:: degenerative disc disease of lumbar spine multilevels with lumbar radiculopathy symptoms, lumbar postlaminectomy syndrome, left knee pain Plan:: At this time the patient is still getting significant relief from his left knee pain and does not need additional injective therapy. I have discussed with the patient that in the future when his pain does become more prominent and on a regular basis that we will plan on repeating the left genicular nerve block. Risk and benefits of this procedure were explained to the patient as well as the genicular RFA. Patient will return to clinic in 1 month for reevaluation of symptoms and plan of care. Patient has been instructed to contact the clinic with any concerns before the next appointment. Dr. Cabello has reviewed this note and agrees with this plan of care. This note was dictated using voice recognition software and make contain errors or omissions. -- It Is medically necessary for this patient to continue to have their intrathecal pump refilled at regular intervals. This patient had an intrathecal pain pump implanted after meeting criteria of chronic intractable pain for greater than 3 months and failing conservative treatments. Patient has committed and been compliant to the treatment plan and all planned follow up care. Since implantation of the intrathecal pain pump, the patient has had decreased pain and been more functional. Oral medications have been reduced including intake of oral opioids. Patient continues to do well with intrathecal therapy with decrease in pain symptoms and increase in functional status. Stopping intrathecal medications can lead to life threatening withdrawal, seizures, cardiac arrest, severe pain, and possible . Pumps that are not
[2022-06-19 10:52] VITALS: BP 191/68; PULSE 79; RESP 18; O2SAT 98; BMI 34.4
== END ==
PROVIDERS: PCP Family Medicine; Visit Provider Nurse Practitioner Family
DX: M51.16 Intervertebral disc disorders with radiculopathy, lumbar region (principal); M96.1 Postlaminectomy syndrome, not elsewhere classified; M25.562 Pain in left knee
CPT/HCPCS: 99212; G0463

== ENCOUNTER → 2022-07-20 11:24 | Outpatient (POV) | payer MEDICARE, SELFPAY ==
--- NOTE | 2022-07-20 11:49 | EXP.PAIN.SOA ---
[facility] Pain Management SOAP Note Subjective:: Patient is a pleasant 57-year-old who presents today for follow-up. We are currently treating the patient for degenerative disc disease of lumbar spine with lumbar radiculopathy symptoms, lumbar postlaminectomy syndrome, left knee pain. Today he rates his pain a 7 out of 10. Patient does state that he is starting to experience worsening pain in his left knee and describes it as an aching, throbbing sensation that is worse with increased activity. Patient does state it interferes with his activities of daily living such as cooking or cleaning or even simple ambulation. Patient previously had a left genicular nerve block on 05/30/2022 that provided at least 70% improvement lasting up until the last week or so. Patient is interested in repeating this injection. Patient is currently managed with intrathecal morphine 25 mg/mL with a daily dose of 1.782 mg/day and bupivacaine 5 mg/mL with a daily dose of 0.3564 mg/day. Patient denies any side effects from this medication. He is scheduled to have his pump refilled on the of this month and at that time we will be decreasing his intrathecal concentration. Patient is also prescribed compounding cream and is on testosterone therapy from an outside provider. His [place] is [phone]. Its been reviewed and appropriate. Review of Systems: General: No recent weight changes, no fever, no sleep disturbances Respiratory: No cough, no shortness of air, no recurring pulmonary infections Cardiovascular/peripheral vascular: No chest pain, no palpitations, no edema, no shortness of breath Gastrointestinal: No new onset incontinence, normal bowel movements reported Genitourinary: No new onset incontinence Musculoskeletal: Left knee pain Psychiatric: [Normal mood/affect] Neurological: [Denies weakness in extremities], [denies balance issues] Objective:: Physical Exam: General: Alert and oriented x3, no acute distress, pleasant and cooperative Lungs: Respirations even and unlabored, symmetrical chest expansion Eyes: PERRL Musculoskeletal: Flexion and extension of left knee somewhat guarded secondary to pain, [antalgic gait noted] Neurological: Speech clear, no gross sensory deficit Assessment:: 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 I have discussed with the patient that he may benefit from a repeat left genicular nerve block. Risk and benefits were discussed with the patient and he would like to proceed forward with this plan of care. Patient had prior at least 70% improvement with his last genicular nerve block lasting almost 2 months. We will schedule him for a left genicular nerve block. We will see the patient back in the clinic at the next intrathecal refill. Patient has been instructed to contact the clinic with any concerns before the next appointment. Dr. Cabello has reviewed this note and agrees with this plan of care. This note was dictated using voice recognition software and make contain errors or omissions. -- It Is medically necessary for this patient to continue to have their intrathecal pump refilled at regular intervals. This patient had an intrathecal pain pump implanted after meeting criteria of chronic intractable pain for greater than 3 months and failing conservative treatments. Patient has committed and been compliant to the treatment plan and all planned follow up care. Since implantation of the intrathecal pain pump, the patient has had decreased pain and been more functional. Oral medications have been reduced including intake of oral opioids. Patient continues to do well with intrathecal therapy with decrease in pain symptoms and increase in functional status. Stopping intrathecal medications can lead to life threatening withdrawal, seizures, cardiac arrest, severe leslye
[2022-07-20 12:17] VITALS: BP 142/76; PULSE 83; RESP 18; O2SAT 98; BMI 31.4
== END ==
PROVIDERS: PCP Family Medicine; Visit Provider Nurse Practitioner Family
DX: M51.16 Intervertebral disc disorders with radiculopathy, lumbar region (principal); M96.1 Postlaminectomy syndrome, not elsewhere classified; M25.562 Pain in left knee
CPT/HCPCS: 99212; G0463

== ENCOUNTER 2022-07-25 08:25 | Day surgery (SDC) | payer MEDICARE, SELFPAY ==
[2022-07-25 08:39] VITALS: BP 189/113; PULSE 93; RESP 18; TEMP 37; O2SAT 93; BMI 35.9
[2022-07-25 09:03] VITALS: BP 122/71; PULSE 79; RESP 18; O2SAT 99
[2022-07-25 09:04] VITALS: BP 122/71; PULSE 79; RESP 18; O2SAT 99
--- NOTE | 2022-07-25 09:06 | EXP.PAIN.PRO ---
Procedure Date: 07/25/22 Time: 09:00 Anesthesiologist:: Kvng Aranda CRNA Complications:: None Pre-procedure Diagnosis:: Chronic left knee pain. Status post left knee replacement. Post-procedure Diagnosis:: Same. Indications for Procedure:: Very pleasant 57-year-old male comes our clinic today for left genicular nerve block. Patient had left genicular nerve block several months ago. He reports 4 to 6 weeks of 70% improvement in terms of his left knee pain. Patient is status post left knee replacement several years ago. Procedure Details:: Left knee genicular block Informed consent was obtained and the risk and benefits of the procedure was explained to the patient. The patient was taken to the procedure room. The left knee was prepped using ChloraPrep. I placed 22-gauge needles into the area of the left superior medial genicular nerve, left superior lateral genicular nerve and left inferior medial genicular nerve. Needle placement was confirmed in AP and lateral views with dye. We then injected bupivacaine 0.25% 3 mL's and Depo-Medrol 25 mg into each area of the left superior medial genicular nerve, left superior lateral genicular nerve and left inferior medial genicular nerve. Patient tolerated the procedure well with no complications. Plan and Disposition:: We will follow-up with her in 2 weeks. Will reevaluate symptoms at that time. Plan and Disposition:: Patient was discharged without incident.
[2022-07-25 09:07] VITALS: BP 182/74; PULSE 82; RESP 18; O2SAT 98
== END 2022-07-25 09:07 | disposition home or self-care (01) ==
PROVIDERS: PCP Family Medicine; Visit Provider Nurse Anesthetist, Certified Registered
DX: M25.562 Pain in left knee (principal); G89.29 Other chronic pain; Z96.652 Presence of left artificial knee joint
CPT/HCPCS: 64454; J1040

== ENCOUNTER 2022-08-01 12:35 | Day surgery (SDC) | payer MEDICARE, SELFPAY ==
[2022-08-01 12:54] VITALS: BP 200/73; PULSE 77; RESP 18; TEMP 37.1; O2SAT 96; BMI 35.9
[2022-08-01 13:02] VITALS: BP 189/75; PULSE 71; RESP 18; O2SAT 98
[2022-08-01 13:03] VITALS: BP 189/75; PULSE 71; RESP 18; O2SAT 98
[2022-08-01 13:12] VITALS: BP 194/80; PULSE 71; RESP 18; O2SAT 96
--- NOTE | 2022-08-01 14:04 | EXP.PAIN.PRO ---
Procedure Date: 08/01/22 Time: 13:15 Anesthesiologist:: Kvng Aranda CRNA Complications:: None Pre-procedure Diagnosis:: Degenerative disc disease lumbar spine multilevels. Lumbar radiculopathy. Lumbar postlaminectomy syndrome. Post-procedure Diagnosis:: Same. Indications for Procedure:: Patient is a very pleasant 57-year-old male that comes our clinic today for intrathecal pain pump interrogation and refill. He is currently being managed with morphine sulfate 25 mg/mL at 1.78 mg/day. Also, bupivacaine 5 mg/mL at 0.3564 mg/day. He is doing quite well with his current management. He is not asking for any adjustment. He does not report any side effects or complications from the current intrathecal pain pump management. Procedure Details:: Details of the procedure explained to the patient. The patient taken the procedure room placed in sitting position. The area of the pump was cleansed using chlorhexidine cleansing solution. The pump was accessed with ease using 22-gauge inch and half needle. 14.1 mL of solution was withdrawn and discarded appropriately. The pump was then filled with 20 cc of fluid containing morphine sulfate 25 mg/mL and bupivacaine 5 mg/mL. The rate will continue the same. He will be no adjustments today. Plan and Disposition:: Patient was discharged without incident.
== END 2022-08-01 13:12 | disposition home or self-care (01) ==
LOC: SC.PAINP 12:35
PROVIDERS: PCP Family Medicine; Visit Provider Nurse Anesthetist, Certified Registered
DX: M51.16 Intervertebral disc disorders with radiculopathy, lumbar region (principal); M96.1 Postlaminectomy syndrome, not elsewhere classified; Z45.1 Encounter for adjustment and management of infusion pump
CPT/HCPCS: 95991

== ENCOUNTER → 2022-08-10 10:19 | Outpatient (POV) | payer MEDICARE, SELFPAY ==
--- NOTE | 2022-08-10 10:56 | EXP.PAIN.SOA ---
[facility] Pain Management SOAP Note Subjective:: Patient is a pleasant 57-year-old male who presents today for follow-up of left genicular nerve block. We are currently treating the patient for degenerative disc disease of lumbar spine with lumbar radiculopathy symptoms, lumbar postlaminectomy syndrome, left knee pain. Today he states that he has had at least 75 to 80% improvement following this injection. He does state that he feels like it is still continuing to provide additional relief. He does rate his pain today a 7 out of 10. He states that he has been experiencing worsening pain in his low back along the left side and radiating into his left hip. Patient denies any new trauma or injury. Patient denies any change to location or type of pain he experiences. He does state this is a aching, throbbing sensation with occasional shooting pains down his leg. He does state it interferes with his ability to perform activities of daily living such as cooking and cleaning. He also states he continues to have episodes where his left leg gives out. Patient is currently managed with intrathecal morphine 25 mg/mL with a daily dose of 1.782 mg/day. Patient denies any side effects from this medication. He is also prescribed compounding cream and is on testosterone therapy. His [place] is [phone]. Its been reviewed and appropriate. Review of Systems: General: No recent weight changes, no fever, no sleep disturbances Respiratory: No cough, no shortness of air, no recurring pulmonary infections Cardiovascular/peripheral vascular: No chest pain, no palpitations, no edema, no shortness of breath Gastrointestinal: No new onset incontinence, normal bowel movements reported Genitourinary: No new onset incontinence Musculoskeletal: Low back pain, left leg pain Psychiatric: [Normal mood/affect] Neurological: [Denies weakness in extremities], [denies balance issues] Objective:: Physical Exam: General: Alert and oriented x3, no acute distress, pleasant and cooperative Lungs: Respirations even and unlabored, symmetrical chest expansion Eyes: PERRL Musculoskeletal: Flexion and extension of lumbar [spine] somewhat guarded secondary to pain, [antalgic gait noted] Neurological: Speech clear, no gross sensory deficit Assessment:: Degenerative disc disease of lumbar spine with lumbar radiculopathy symptoms, lumbar postlaminectomy syndrome, left leg pain, left knee pain Plan:: Patient is experiencing significant pain in his low back along the left side with radiating symptoms into his left lower leg. Patient did have limited range of motion of his lumbar spine during today's visit. I have discussed with the patient that he may benefit from a left transforaminal epidural steroid injection. Risk and benefits were discussed with the patient and he would like to proceed forward with this plan of care. Patient is on a full-strength aspirin 325 mg daily and will need to stop this medication prior to this injection. We will schedule him for a left transforaminal epidural steroid injection of L4-L5 and L5-S1. Patient has been instructed to contact the clinic with any concerns before the next appointment. Dr. Cabelol has reviewed this note and agrees with this plan of care. This note was dictated using voice recognition software and make contain errors or omissions. -- It Is medically necessary for this patient to continue to have their intrathecal pump refilled at regular intervals. This patient had an intrathecal pain pump implanted after meeting criteria of chronic intractable pain for greater than 3 months and failing conservative treatments. Patient has committed and been compliant to the treatment plan and all planned follow up care. Since implantation of the intrathecal pain pump, the patient has had decreased pain and been more functional. Oral medications have been reduced including intake of oral opioids. Patient continues to do well with intrathecal therapy with decrease in pain symp
[2022-08-10 11:22] VITALS: BP 200/72; PULSE 84; RESP 20; BMI 35.7
== END ==
PROVIDERS: PCP Family Medicine; Visit Provider Nurse Practitioner Family
DX: M51.16 Intervertebral disc disorders with radiculopathy, lumbar region (principal); M96.1 Postlaminectomy syndrome, not elsewhere classified; M79.605 Pain in left leg; M25.562 Pain in left knee
CPT/HCPCS: 99212; G0463

== ENCOUNTER 2022-08-22 08:52 | Day surgery (SDC) | payer MEDICARE, SELFPAY ==
[2022-08-22 09:00] VITALS: BP 196/77; PULSE 96; RESP 18; TEMP 37.3; O2SAT 95; BMI 35.9
[2022-08-22 09:21] VITALS: BP 177/73; PULSE 89; RESP 18; O2SAT 96
--- NOTE | 2022-08-22 09:23 | P.PCN_ITS ---
Procedure Date: 08/22/22 Time: 09:20 Anesthesiologist:: Kvng Aranda CRNA Complications:: None Pre-procedure Diagnosis:: Degenerative disc lumbar spine multilevels. Lumbar radiculopathy. Lumbar postlaminectomy syndrome. Post-procedure Diagnosis:: Same. Indications for Procedure:: Patient is a pleasant 57-year-old male that comes our clinic today for left L4- 5, L5-S1 transforaminal epidural steroid injection. Patient has low back pain he describes as constant, dull, aching. Patient also has left hip and leg radicular symptoms. Patient responded very well in the past to caudal epidural steroid injection. I suggest to the patient if this procedure today is less than effective we should continue with caudal epidural steroid injections. Procedure Details:: Details of the procedure were explained to the patient. The patient was taken the procedure room placed in the prone position. The area of the lumbar spine was cleansed using chlorhexidine as a cleansing solution. At this time using fluoroscopy guidance markers were placed on the left lateral border of the L4 and L5 vertebral body. The skin and subcutaneous tissue was anesthetized using 1% lidocaine and 25-gauge needle. At this time using a 22-gauge 3-1/2 inch sp inal needle the left upper one third of the L4-5 foramen was accessed. The same was done at the left L5-S1 foramen. Needle positions were confirmed and a lateral view using fluoroscopy and contrast dye. At this time 1 cc of 1% lidocaine +20 mg of Depo-Medrol was injected at each level after negative aspiration. [place] were removed. Band-Aid applied. Patient tolerated the procedure without difficulty. There are no complications. Plan and Disposition:: Patient was discharged without incident.
== END 2022-08-22 09:21 | disposition home or self-care (01) ==
PROVIDERS: PCP Family Medicine; Visit Provider Nurse Anesthetist, Certified Registered
DX: M51.16 Intervertebral disc disorders with radiculopathy, lumbar region (principal); M96.1 Postlaminectomy syndrome, not elsewhere classified
CPT/HCPCS: 64483; 64484; J1030

== ENCOUNTER 2022-10-17 11:20 | Day surgery (SDC) | payer MEDICARE, SELFPAY ==
[2022-10-17 11:30] VITALS: BP 173/86; PULSE 88; RESP 18; TEMP 36.3; O2SAT 97; BMI 34.4
[2022-10-17 11:32] VITALS: BP 194/85; PULSE 86; RESP 19; O2SAT 96
[2022-10-17 11:34] VITALS: BP 194/85; PULSE 86; RESP 19; O2SAT 96
[2022-10-17 11:41] VITALS: BP 180/77; PULSE 81; RESP 18; O2SAT 97
--- NOTE | 2022-10-17 11:48 | EXP.PAIN.PRO ---
Procedure Date: 10/17/22 Time: 11:45 Anesthesiologist:: Kvng Aranda CRNA Complications:: None Pre-procedure Diagnosis:: Degenerative disc disease lumbar spine multilevels. Lumbar radiculopathy. Lumbar postlaminectomy syndrome. Post-procedure Diagnosis:: Same. Indications for Procedure:: Very pleasant 57-year-old male that comes our clinic today for intrathecal pain pump refill and interrogation. He is currently being managed with morphine sulfate 25 mg/mL at 1.78 to 0 mg/day also bupivacaine 5 mg/mL at 0.3564 mg/day. Patient doing well with his current settings. He does not complain of any side effects or complications regarding his intrathecal pain pump management Procedure Details:: Details of the procedure explained to the patient. Patient taken to the procedure room placed in sitting position. The area of the pump was cleaned using chlorhexidine as a cleansing solution. The pump was interrogated. The pump was accessed with ease using 22-gauge inch and half needle. 13.9 mL of solution was withdrawn and discarded appropriately. The pump was then filled incrementally with 20 cc of morphine sulfate 25 mg/mL and bupivacaine 5 mg/mL. The be no change in the current settings today. Plan and Disposition:: Patient was discharged without incident.
[2022-10-17 14:38] LABS: Amphetamine/Metha Screen,Urine Negative ng/ml (<1000); Barbiturates Screen,Urine Negative ng/ml (<200)
[2022-10-17 14:39] LABS: Benzodiazepines Screen,Urine Negative ng/ml (<200)
[2022-10-17 14:40] LABS: Cannabinoid Screen,Urine Negative ng/ml (<50)
[2022-10-17 14:41] LABS: Cocaine Screen,Urine Negative ng/ml (<300)
[2022-10-17 14:42] LABS: Opiate Screen,Urine Positive ng/ml (<300)
[2022-10-17 14:43] LABS: Phencyclidine Screen,Urine Negative ng/ml (<25)
[2022-10-17 17:41] LABS: Methadone Screen,Urine Negative ng/ml (<300)
[2022-10-20 12:13] LABS: Codeine Negative (Cutoff=100); Hydrocodone Negative (Cutoff=100); Hydromorphone Negative (Cutoff=100); Morphine Positive (.); Opiates Positive (.)
== END 2022-10-17 11:41 | disposition home or self-care (01) ==
LOC: SC.PAINP 11:21
PROVIDERS: Nurse Practitioner Family; PCP Family Medicine; Visit Provider Nurse Anesthetist, Certified Registered
DX: M51.16 Intervertebral disc disorders with radiculopathy, lumbar region (principal); M96.1 Postlaminectomy syndrome, not elsewhere classified
CPT/HCPCS: 80305; 80361; 80365; 95991; G0480

== ENCOUNTER 2023-03-20 10:49 | Day surgery (SDC) | payer MEDICARE, SELFPAY ==
[2023-03-20 11:14] VITALS: BP 184/73; PULSE 86; RESP 16; TEMP 36.3; O2SAT 98; BMI 31.5
[2023-03-20 11:28] VITALS: PULSE 67; O2SAT 97
[2023-03-20 11:32] VITALS: BP 170/91; PULSE 97; O2SAT 97
[2023-03-20 11:37] VITALS: BP 135/59; PULSE 105; RESP 16; O2SAT 98
--- NOTE | 2023-03-20 12:26 | EXP.PAIN.PRO ---
Procedure Date: 03/20/23 Time: 11:45 Anesthesiologist:: Kvng Aranda CRNA Complications:: None Pre-procedure Diagnosis:: Degenerative disc lumbar spine multilevels. Lumbar radiculopathy. Lumbar postlaminectomy syndrome. Post-procedure Diagnosis:: Same. Indications for Procedure:: Patient is a very pleasant 57-year-old male comes our clinic today for intrathecal pain pump refill and interrogation. Patient is currently being managed with morphine sulfate 25 mg/mL at a rate of 1.78 mg/day and bupivacaine 5 mg/mL at a rate of 0.3564 mg/day. Patient doing very well with current settings. He does not report any side effects or complications. Procedure Details:: Details of the procedure explained to the patient. The patient taken the procedure room placed in the sitting position. The area over the pumps cleansed using chlorhexidine as a cleansing solution. The pump was interrogated. The pump was accessed with ease using a 22-gauge inch and half needle. 14 mL of solution was withdrawn discarded appropriately. The pump was then filled with 20 cc of a solution containing morphine sulfate 25 mg/mL and bupivacaine 5 mg/mL. Patient tolerated procedure without difficulty. There were no rate changes. There were no complications. Plan and Disposition:: Patient was discharged without incident.
== END 2023-03-20 11:37 | disposition home or self-care (01) ==
PROVIDERS: PCP Family Medicine; Visit Provider Nurse Anesthetist, Certified Registered
DX: M51.16 Intervertebral disc disorders with radiculopathy, lumbar region (principal); M96.1 Postlaminectomy syndrome, not elsewhere classified; Z97.8 Presence of other specified devices
CPT/HCPCS: 95991

== ENCOUNTER 2023-06-19 10:36 | Day surgery (SDC) | payer MEDICARE, SELFPAY ==
[2023-06-19 10:51] VITALS: BP 185/87; PULSE 59; RESP 18; TEMP 36.8; O2SAT 96; BMI 33.0
[2023-06-19 10:56] VITALS: BP 194/92; PULSE 58; RESP 18; O2SAT 97
[2023-06-19 10:57] VITALS: BP 194/92; PULSE 58; RESP 18; O2SAT 97
--- NOTE | 2023-06-19 10:59 | EXP.PAIN.PRO ---
Procedure Date: 06/19/23 Time: 11:00 Anesthesiologist:: Kvng Aranda CRNA Complications:: None Pre-procedure Diagnosis:: Degenerative disc lumbar spine multilevels. Lumbar radiculopathy. Lumbar postlaminectomy syndrome. Post-procedure Diagnosis:: Same. Indications for Procedure:: Patient is a very pleasant 58-year-old male comes our clinic today for intrathecal pain pump interrogation refill. He is currently being managed with morphine sulfate 25 mg/mL at a rate of 1.78 mg/day and bupivacaine 5 mg/mL rate is 0.3564 mg/day. He is doing very well his current settings. He is not reporting any side effects or complications. Patient is not requesting any changes in his intrathecal pump rate. Procedure Details:: Details of the procedure explained to the patient. The patient taken to procedure room placed in the sitting position. The area of the pump was cleansed using chlorhexidine as a cleansing solution. The pump was interrogated. The pump was accessed with ease using a 22-gauge inch and half needle. 12.1 mL solution was withdrawn discarded appropriate. The pump was then filled with 20 cc of a solution containing morphine sulfate 25 mg/mL and bupivacaine 5 mg/mL. Patient tolerated procedure without difficulty. There are no complications. Plan and Disposition:: Patient was discharged without incident.
[2023-06-19 11:06] VITALS: BP 175/85; PULSE 62; RESP 18; TEMP 36.8; O2SAT 98
== END 2023-06-19 11:05 | disposition home or self-care (01) ==
PROVIDERS: PCP Family Medicine; Visit Provider Nurse Anesthetist, Certified Registered
DX: M51.16 Intervertebral disc disorders with radiculopathy, lumbar region (principal); M96.1 Postlaminectomy syndrome, not elsewhere classified; Z97.8 Presence of other specified devices; Z45.1 Encounter for adjustment and management of infusion pump
CPT/HCPCS: 95991

== ENCOUNTER 2023-10-03 13:59 | Day surgery (SDC) | payer MEDICARE, SELFPAY ==
[2023-10-03 14:26] VITALS: BP 160/83; PULSE 97; RESP 22; O2SAT 98; BMI 35.6
--- NOTE | 2023-10-03 14:37 | P.PCN_ITS ---
Procedure Date: 10/03/23 Time: 14:20 Anesthesiologist:: Kamryn Klein APRN Complications:: None Pre-procedure Diagnosis:: Degenerative disc disease of lumbar spine with lumbar radiculopathy symptoms, lumbar postlaminectomy syndrome Post-procedure Diagnosis:: Same Indications for Procedure:: Patient is a pleasant 58-year-old male who presents today for intrathecal refill and reprogram. Today he rates his pain a 7 out of 10. He denies any new trauma or injury. He does state that he has still been having some issues with his breathing and is scheduled to see a new social sciences professor in November. Patient did have a heart attack in the last few months and is scheduled to follow-up with die presser soon. Patient is currently managed with morphine 25 mg/mL and bupivacaine 5 mg/mL with a daily dose of 1.782 mg/day. He denies any side effects from this medication. He does state that right now he feels like the dosage is doing well and does not need adjustment. Patient was scheduled to get set up with [facility] home refill however he states that this was just for the fact that he had the heart attack and could not get in to get his pump refilled. Patient does state that he would rather come in to the hospital for these refills because in case something happens the providers around where he lives are not familiar or comfortable with pumps. His [place] has been reviewed and is appropriate. Physical Exam: General: Alert and oriented x3, no acute distress, pleasant and cooperative Lungs: Respirations even and unlabored, symmetrical chest expansion Eyes: PERRL Musculoskeletal: Flexion and extension of lumbar [spine] somewhat guarded secondary to pain, [antalgic gait noted] Neurological: Speech clear, no gross sensory deficit Procedure Details:: Informed consent was obtained and the risk and benefits of the procedure were explained to the patient. The patient was taken to the procedure room where noninvasive monitoring was placed including noninvasive blood pressure cuff and pulse oximeter. Patient's pump was interrogated. The area over the pump was cleansed with chlorhexidine as a cleansing solution. In sterile fashion the pump was accessed with a 22-gauge needle. Approximately 11 mls of the pump solution was removed and discarded appropriately. The pump was then refilled with 20 mL's of morphine 25 mg/mL and bupivacaine 5 mg/mL. The needle was withdrawn and a bandage was placed over the puncture site. The infusion rate was reprogrammed and continued at 1.782 mg/day. The patient tolerated well with no complication. Plan and Disposition:: Patient tolerated his intrathecal refill with no complications and was discharged neurologically intact. I have counseled the patient that we do not have any preference that if he would like to have the pump refilled in the clinic setting that there is no issue with that. We will reach out to [facility] and make sure that they are aware that we will be continuing to refill him at the [facility] location. Patient will return to clinic on or before December 26 for his next intrathecal refill and reprogram. We will see the patient back in the clinic at the next intrathecal refill. Patient has been instructed to contact the clinic with any concerns before the next appointment. Dr. Cabello has reviewed this note and agrees with this plan of care. This note was dictated using voice recognition software and make contain errors or omissions. -- It Is medically necessary for this patient to continue to have their intrathecal pump refilled at regular intervals. This patient had an intrathecal pain pump im planted after meeting criteria of chronic intractable pain for greater than 3 months and failing conservative treatments. Patient has committed and been compliant to the treatment plan and all planned follow up care. Since implantation of the intrathecal pain pump, the patient has had decreased pain and been more functional. Oral medications have been reduced including intake of oral opioids. Patient continues to do well with intrathecal therapy with decrease in pain symptoms and increase in functional status. Stopping intrathecal medications can lead to life threatening withdrawal, seizures, cardiac arrest, severe pain, and possible . Pumps that are not refilled at regular intervals can be damages and cause and need for replacement. We continually titrate dose and concentration to optimize pain relief and function. We are limited in concentration for certain drugs to safely deliver medications through the pump and stay within the recommendations from the Polyanalgesic Consensus Committee Guidelines. Depending on dose and concentration these pumps may need to be refilled sooner than 3 months as we titrate.
[2023-10-03 14:41] VITALS: BP 123/86; PULSE 84; RESP 18; O2SAT 98
[2023-10-03 14:43] VITALS: BP 123/86; BP 154/72; PULSE 70; PULSE 84; RESP 16; RESP 18; O2SAT 94; O2SAT 98
[2023-10-03 14:45] VITALS: BP 128/88; PULSE 85; RESP 18; O2SAT 98
== END 2023-10-03 14:44 | disposition home or self-care (01) ==
PROVIDERS: PCP Family Medicine; Visit Provider Nurse Practitioner Family
DX: M96.1 Postlaminectomy syndrome, not elsewhere classified (principal)
CPT/HCPCS: 62370

== ENCOUNTER 2024-02-29 12:53 | Day surgery (SDC) | payer MEDICARE, SELFPAY ==
[2024-02-29 13:10] VITALS: BP 169/84; PULSE 60; RESP 16; O2SAT 97; BMI 34.4
[2024-02-29 13:26] VITALS: BP 192/88; PULSE 46; PULSE 58; RESP 18; RESP 20; O2SAT 95
--- NOTE | 2024-02-29 13:33 | EXP.PAIN.PRO ---
Procedure Date: 02/29/24 Time: 13:33 Anesthesiologist:: Kamryn Klein APRN Complications:: None Pre-procedure Diagnosis:: Degenerative disc disease of lumbar spine with lumbar radiculopathy symptoms Post-procedure Diagnosis:: Same Indications for Procedure:: Patient is a pleasant 58-year-old male who presents today for intrathecal refill and reprogram. Today he rates his pain a 8 out of 10. He denies any new trauma or injury. Patient is currently managed with morphine 25 mg/mL with a daily dose of 1.782 milligrams per day and bupivacaine 5 mg/mL with a daily dose of 0.3564 mg/day. He denies any side effects from this medication. He states he does not feel like he needs any adjustment on his pump. He does state however that his left knee is still giving him quite a bit of pain. He describes it as an aching, throbbing sensation that does interfere with his ability perform activities of daily living such as cooking and cleaning. Patient has previously had knee replacement however continued to have chronic pain there after. Patient has had a nerve block in the past that did provide significant relief. Patient is interested in repeating this procedure because it did significantly help. Patient has been tried on oral medications along with compounded cream with minimal changes. He is also tried heat and ice and continued at home stretching exercise for longer than 12 weeks. Patient does have a heart history with abnormal heart rate. He does see the foreign language interpreter in [place]. Of his [place] has been reviewed and is appropriate. Physical Exam: General: Alert and oriented x3, no acute distress, pleasant and cooperative Lungs: Respirations even and unlabored, symmetrical chest expansion Eyes: PERRL Musculoskeletal: Flexion and extension of left knee somewhat guarded secondary to pain, [antalgic gait noted] Neurological: Speech clear, no gross sensory deficit Procedure Details:: Informed consent was obtained and the risk and benefits of the procedure were explained to the patient. The patient was taken to the procedure room where noninvasive monitoring was placed including noninvasive blood pressure cuff and pulse oximeter. Patient's pump was interrogated. The area over the pump was cleansed with chlorhexidine as a cleansing solution. In sterile fashion the pump was accessed with a 22-gauge needle. Approximately 15 mls of the pump solution was removed and discarded appropriately. The pump was then refilled with 20 mL's of morphine 25 mg/mL and bupivacaine 5 mg/mL. The needle was withdrawn and a bandage was placed over the puncture site. The infusion rate was reprogrammed and continued at morphine 0.782 mg/day and bupivacaine 0.3564 mg/day. The patient tolerated well with no complication. Plan and Disposition:: Patient tolerated his intrathecal refill and reprogram with no complications and was discharged neurologically intact. Patient will return to clinic on or before his next intrathecal refill date of May 24, 2024. I did discuss with patient due to his chronic left knee pain with limited range of motion that he may benefit from a repeat infrapatellar nerve block. Patient did previously have a genicular nerve block in the left knee that did provide 70% improvement. Risk and benefits were discussed with patient and he would like to proceed forward with this plan of care. Patient has tried and failed conservative therapy. We will reach out to his foreign language interpreter and confirm that they have no contraindications of this procedure and get him scheduled for a left infrapatellar nerve block. Patient has been instructed to contact the clinic with any concerns before the next appointment. Dr. Cabello has reviewed this note and agrees with this plan of care. This note was dictated using voice recognition software and make contain errors or omissions. All injections are used with Lidocaine or Bupivacaine and Depo Medrol.
[2024-02-29 13:54] VITALS: BP 169/84; PULSE 60; RESP 18; O2SAT 95
== END 2024-02-29 13:56 | disposition home or self-care (01) ==
PROVIDERS: PCP Family Medicine; Visit Provider Nurse Practitioner Family
DX: M51.16 Intervertebral disc disorders with radiculopathy, lumbar region (principal); Z87.891 Personal history of nicotine dependence; Z96.652 Presence of left artificial knee joint
CPT/HCPCS: 62370

== ENCOUNTER 2024-05-16 10:43 | Day surgery (SDC) | payer MEDICARE, SELFPAY ==
--- NOTE | 2024-05-16 11:10 | EXP.PAIN.PRO ---
Procedure Date: 05/16/24 Time: 11:54 Anesthesiologist:: Kamryn Klein APRN Complications:: None Pre-procedure Diagnosis:: Degenerative disc disease of lumbar spine with lumbar radiculopathy symptoms Post-procedure Diagnosis:: Same Indications for Procedure:: Patient is a pleasant 59-year-old male who presents today for intrathecal refill and reprogram. Today he rates his pain a Patient does state that he is still having increased leg weakness and heaviness. He states he has been having a lot of falls. He also states that his blood pressure has been through the roof and is now on 3 different medications with it still running high. He states that they ran multiple past and cannot seem to come back with what is going on. Patient states that it is all been since having open heart surgery. Patient does have a prior history of lumbar fusion and was told years ago that at some point in time that there was a chance that he would not be able to walk due to the progression of his disease. Patient just has a lot of concerns. Patient is currently managed with intrathecal morphine 25 mg/mL and bupivacaine 5 mg/mL with a daily dose of morphine 0.782 mg/day and bupivacaine 0.3564 mg/day. He denies any side effects from this medication. His [place] has been reviewed and is appropriate. Physical Exam: General: Alert and oriented x3, no acute distress, pleasant and cooperative Lungs: Respirations even and unlabored, symmetrical chest expansion Eyes: PERRL Musculoskeletal: Flexion and extension of lumbar [spine] somewhat guarded secondary to pain, [antalgic gait noted] Neurological: Speech clear, no gross sensory deficit Procedure Details:: Informed consent was obtained and the risk and benefits of the procedure were explained to the patient. The patient had noninvasive monitoring placed including noninvasive blood pressure cuff and pulse oximeter. Patient's pump was interrogated. The area over the pump was cleansed with chlorhexidine as a cleansing solution. In sterile fashion the pump was accessed with a 22-gauge needle. Fluoroscopic guidance was used to access his pump. Approximately 14.2 mls of the pump solution was removed and discarded appropriately. The pump was then refilled with 20 mL's of morphine 25 mg/mL and bupivacaine 5 mg/mL. The needle was withdrawn and a bandage was placed over the puncture site. The infusion rate was reprogrammed and continued. The patient tolerated well with no complication. Plan and Disposition:: Patient tolerated the procedure well with no complications and was discharged neurologically intact. I did order x-ray and CT without contrast of his lumbar spine due to his worsening symptoms. Patient did have even an episode at the end of our visits where he did get lightheaded when he went to stand up and sat back down. Patient states it occurs like this more and more frequently. He states that it comes on severe but then does go away very quickly. Patient states that he has been to see [facility] and they are not giving any additional explanation. He states he was given inhalers due to the fact that it does frequently take his breath when it hits however he has not noticed any additional improvement following this. I did discuss with the patient that I do believe MRI would be more beneficial but he states since his last surgery that he has became very claustrophobic and cannot tolerate the close spaces. Patient will return to clinic on or before their next intrathecal refill date. We will see the patient back in the clinic at the next intrathecal refill. Patient has been instructed to contact the clinic with any concerns before the next appointment. Dr. Cabello has reviewed this note and agrees with this plan of care. This note was dictated using voice recognition software and make contain errors or omissions. -- It Is medically necessary for this patient to continue to have their intrathecal pump refilled at regular intervals. This patient had an intrathecal pain pump implanted after meeting criteria of chronic intractable pain for greater than 3 months and failing conservative treatments. Patient has committed and been compliant to the treatment plan and all planned follow up care. Since implantation of the intrathecal pain pump, the patient has had decreased pain and been more functional. Oral medications have been reduced including intake of oral opioids. Patient continues to do well with intrathecal therapy with decrease in pain symptoms and increase in functional status. Stopping intrathecal medications can lead to life threatening withdrawal, seizures, cardiac arrest, severe pain, and possible . Pumps that are not refilled at regular intervals can be damages and cause and need for replacement. We continually titrate dose and concentration to optimize pain relief and function. We are limited in concentration for certain drugs to safely deliver medications through the pump and stay within the recommendations from the Polyanalgesic Consensus Committee Guidelines. Depending on dose and concentration these pumps may need to be refilled sooner than 3 months as we titrate. A UDS is needed to verify patient's compliance with our office pain contract. This is ordered based off specific treatments related to chronic pain with the potential to abuse certain medications.
[2024-05-16 11:23] VITALS: BP 164/88; PULSE 78; RESP 16; O2SAT 94; BMI 36.6
[2024-05-16 11:57] VITALS: BP 146/89; PULSE 76; RESP 18; O2SAT 96
[2024-05-16 11:59] VITALS: BP 146/89; PULSE 76; RESP 18; O2SAT 96
[2024-05-16 12:48] VITALS: BP 163/83; PULSE 77; RESP 16; O2SAT 96
--- NOTE | 2024-05-16 13:19 | XR_ITS ---
FINAL REPORT CLINICAL HISTORY: WORSENING LEG PAIN, FALLS COMPARISON: None FINDINGS: LUMBAR SPINE 3 views of the lumbar spine were obtained. No fracture is identified. There is mild spondylosis. Moderate diffuse degenerative disc disease is noted. There are postoperative changes from fusion L4-S1. There is a lumbar pain pump noted with multiple leads projecting within the lumbar spine. Some of these leads may be abandoned. There is a contiguous lead T11-T12 level. IMPRESSION: Postoperative and degenerative changes without fracture. Reviewed, Interpreted and Dictated by Nika Marques MD Transcribed by Yelena Bañuelos Authenticated and [facility]
== END 2024-05-16 12:48 | disposition home or self-care (01) ==
PROVIDERS: PCP Family Medicine; Visit Provider Nurse Practitioner Family
DX: M51.16 Intervertebral disc disorders with radiculopathy, lumbar region (principal)
CPT/HCPCS: 62370; 72100

== ENCOUNTER 2024-08-01 11:22 | Day surgery (SDC) | payer MEDICARE, SELFPAY ==
--- NOTE | 2024-08-01 11:26 | EXP.HP ---
History of Present Illness *Admission Date: 08/01/24 *Reason for visit:: Intrathecal refill, DDD *History of present illness: Degenerative disc disease [facility] Disclaimer: The information contained in this section may have been updated after the patient was seen, as this information can be updated by other users. Medical History (Updated 05/16/24 @ 11:49 by Kamryn Klein APRN) History of chest pain Diabetes mellitus, type 2 Surgical History History of back surgery History of carpal tunnel release History of knee replacement Family History Other No significant family history Social History Smoking Status: Former smoker tobacco type: cigarettes second hand exposure: No alcohol intake: never current occupational status: disabled Travel in the last 8 weeks: None household members: spouse housing: house current occupational exposures/hazards: No caffeine: Yes Have you lived/traveled outside US in past 30 days?: No Contact w/someone who lives/traveled outside US past 30 days?: No Exposure to someone with infectious disease in past 14 days?: No Do you have a fever (greater than 100.4 F or 38 C)?: No Have you tested positive for COVID-19: No Exposed to someone with COVID-19 in past 14 days?: No Do you have a sore throat?: No Do you have a cough?: No Do you have any weakness?: No Do you have any diarrhea?: No Are you experiencing any unusual bleeding?: No Do you have any muscle aches/pain?: No Do you have any abdominal pain?: No Are you experiencing loss of taste or smell?: No Other Medical History Have you received the Flu Vaccine for this season: No Have you received the Pneumonia Vaccine: No Review of Systems Review of Systems Review of systems:: pertinent systems reviewed and negative unless documented below Review of systems (narrative): Review of Systems: General: No recent weight changes, no fever, no sleep disturbances Respiratory: No cough, no shortness of air, no recurring pulmonary infections Cardiovascular/peripheral vascular: No chest pain, no palpitations, no edema, no shortness of breath Gastrointestinal: No new onset incontinence, normal bowel movements reported Genitourinary: No new onset incontinence Musculoskeletal: Chronic back pain Psychiatric: [Normal mood/affect] Neurological: [Denies weakness in extremities], [denies balance issues] Constitutional Constitutional: Reports system reviewed and no additional complaints, except as documented Meds Home Medications and Allergies Home Medications ?Medication ?Instructions ?Recorded ?Confirmed ?Type aspirin 325 mg tablet 325 mg PO DAILY heart health 12/10/18 05/16/24 History furosemide 40 mg tablet 40 mg PO DAILYP PRN fluid retention 12/10/18 05/16/24 History levothyroxine 88 mcg tablet 88 mcg PO DAILY hypothyroid 12/10/18 05/16/24 History lisinopril 40 mg tablet 40 mg PO DAILY blood pressure 12/10/18 05/16/24 History omeprazole 20 mg capsule,delayed 20 mg PO DAILY GERD 12/10/18 05/16/24 History release vitamin B comp and C no.3 15 mg-10 1 each PO DAILY Supplement 12/10/18 05/16/24 History mg-50 mg-5 mg-300 mg capsule metoprolol succinate 25 mg 25 mg PO DAILY heart rate 10/20/19 05/16/24 History tablet,extended release 24 hr sitagliptin phosphate 100 mg tablet 50 mg PO DAILY Diabetes 10/20/19 05/16/24 History gabapentin 300 mg capsule 300 mg PO DAILY Pain 01/14/21 05/16/24 History ondansetron 4 mg disintegrating 4 mg PO Q8H PRN nausea and 03/09/22 05/16/24 Rx tablet vomiting #30 tabs testosterone cypionate 200 mg/mL 200 mg IM DIRECTED SUPPLIMENT 03/23/22 05/16/24 History intramuscular oil fluoxetine 10 mg capsule 10 mg PO DAILY MOOD 05/19/22 05/16/24 History New Prescriptions to Start Prescriptions: Allergies Allergy/AdvReac Type Severity Reaction Status Date / Time penicillin G (PENICILLIN G) Allergy Unknown UNKNOWN Verified 05/16/24 11:21 Exam Constitutional Constitutional: no acute distress *Routine HEENT Exam Head: Present normocephalic and atraumatic Eye: Present PERRL ENT: Present mucous membranes moist *Routine Neck Exam Neck: Present supple *Routine Respiratory Exam Respiratory: Present CTA bilaterally *Routine Cardiovascular Exam Cardiovascular: Present RRR *Routine Abdominal Exam Abdominal: Present soft *Routine Rectal Exam Rectal:: deferred *Routine Genitalia Exam Genitalia:: normal male Routine Back/Spine/Pelvis Exam Back/Spine: Present pain with flexion *Routine Skin Exam Skin: Present intact *Routine Neurological Exam Neurological: Present alert and oriented X3 Routine Psychiatric Exam Psychiatric: Present normal affect Assessment and Plan *Assessment and plan (1) Lumbar radiculopathy: Status: Acute Category: Medical Code(s): M54.16 - Radiculopathy, lumbar region (2) Degenerative disc disease: Status: Acute Category: Medical Plan Patient has been instructed to contact the clinic with any concerns before the next appointment. Dr. Cabello has reviewed this note and agrees with this plan of care. This note was dictated using voice recognition software and make contain errors or omissions. All injections are used with Lidocaine, Bupivacaine and dexamethasone. Occasionally urine drug screen is needed to verify patient's compliance with our office pain contract. This is ordered based off specific treatments related to chronic pain with the potential to abuse certain medications.
--- NOTE | 2024-08-01 11:27 | P.PCN_ITS ---
Procedure Date: 08/01/24 Time: 12:29 Anesthesiologist:: Kamryn Klein APRN Complications:: None Pre-procedure Diagnosis:: Degenerative disc disease of lumbar spine with lumbar radiculopathy, chronic pain syndrome Post-procedure Diagnosis:: Same Indications for Procedure:: Patient is a pleasant 59-year-old male who presents today for intrathecal refill and reprogram. Today he rates his pain a 8 out of 10. He states he continues to have falls on a regular basis. He states that his left leg just gives out randomly and there is not anything in particular that causes flareups. Patient does state since our last visit he is still having quite a bit of heart related issues and breathing issues. Patient states that he was recently diagnosed with A-fib and is also going to be scheduled for a cardiac procedure coming up on August 22 to see if they can shocked him out of this rhythm. Patient is on multiple blood pressure medications and blood thinners and is still also experiencing significant elevated blood pressure. Patient is currently managed with intrathecal morphine 25 mg/mL with a daily dose of 0.782 mg/day and bupivacaine 5 mg/mL with a daily dose of 0.3564 mg/day. He denies any side effects. Patient has been sensitive to increases or decreases in the past and is very leery about making adjustments with the pump especially with all his heart related issues. Patient did have an x-ray imaging of his low back in May. His [place] has been reviewed and is appropriate. physical Exam: General: Alert and oriented x3, no acute distress, pleasant and cooperative Lungs: Respirations even and unlabored, symmetrical chest expansion Eyes: PERRL Musculoskeletal: Flexion and extension of lumbar [spine] somewhat guarded secondary to pain, [antalgic gait noted] Neurological: Speech clear, no gross sensory deficit Procedure Details:: Informed consent was obtained and the risk and benefits of the procedure were explained to the patient. The patient had noninvasive monitoring placed including noninvasive blood pressure cuff and pulse oximeter. Patient's pump was interrogated. The area over the pump was cleansed with chlorhexidine as a cleansing solution. In sterile fashion the pump was accessed with a 22-gauge needle. Approximately 14 mls of the pump solution was removed and discarded appropriately. The pump was then refilled with 20 mL's of morphine 25 mg/mL and bupivacaine 5 mg/mL. The needle was withdrawn and a bandage was placed over the puncture site. The infusion rate was reprogrammed and continued at its current dosage. The patient tolerated well with no complication. Plan and Disposition:: Patient tolerated the procedure well with no complications and was discharged neurologically intact. I did discuss with the patient at length due to the fact that he continues to have his left leg gives out more prominently than his right that I would like to proceed forward with a CT of his lumbar spine without contrast. I did review over the x-ray imaging findings from May. Patient is not a candidate for ongoing physical therapy related to his ongoing cardiac symptoms including A-fib, shortness of breath and elevated blood pressure. We will submit for the CT without contrast of his lumbar spine and contact the patient once we have this approval. Due to the fact that he is still having his leg give out causing him to fall I have recommended that he use ambulatory devices such as a cane or a walker as a precaution to minimize additional injury. Patient acknowledges understanding. Patient will return to clinic on or before their next intrathecal refill date. We will see the patient back in the clinic at the next intrathecal refill. Patient has been instructed to contact the clinic with any concerns before the next appointment. Dr. Cabello has reviewed this note and agrees with this plan of care. This note was dictated using voice recognition software and make contain errors or omissions. -- It Is medically necessary for this patient to continue to have their intrathecal pump refilled at regular intervals. This patient had an intrathecal pain pump implanted after meeting criteria of chronic intractable pain for greater than 3 months and failing conservative treatments. Patient has committed and been compliant to the treatment plan and all planned follow up care. Since implantation of the intrathecal pain pump, the patient has had decreased pain and been more functional. Oral medications have been reduced including intake of oral opioids. Patient continues to do well with intrathecal therapy with decreas e in pain symptoms and increase in functional status. Stopping intrathecal medications can lead to life threatening withdrawal, seizures, cardiac arrest, severe pain, and possible . Pumps that are not refilled at regular intervals can be damages and cause and need for replacement. We continually titrate dose and concentration to optimize pain relief and function. We are limited in concentration for certain drugs to safely deliver medications through the pump and stay within the recommendations from the Polyanalgesic Consensus Committee Guidelines. Depending on dose and concentration these pumps may need to be refilled sooner than 3 months as we titrate. A UDS is needed to verify patient's compliance with our office pain contract. This is ordered based off specific treatments related to chronic pain with the potential to abuse certain medications.
[2024-08-01 11:29] VITALS: BP 154/82; PULSE 104; RESP 16; TEMP 36.8; O2SAT 98; BMI 37.3
[2024-08-01 12:05] VITALS: BP 186/89; PULSE 99; RESP 18; O2SAT 94
[2024-08-01 12:06] VITALS: BP 186/89; PULSE 99; RESP 18; O2SAT 95
[2024-08-01 12:30] VITALS: BP 151/79; PULSE 92; RESP 16; O2SAT 95
== END 2024-08-01 12:30 | disposition home or self-care (01) ==
PROVIDERS: PCP Family Medicine; Visit Provider Nurse Practitioner Family
DX: G89.4 Chronic pain syndrome (principal); M51.16 Intervertebral disc disorders with radiculopathy, lumbar region
CPT/HCPCS: 62370; 99212; 99221; G0463

== ENCOUNTER 2024-08-19 06:58 | Outpatient (CLI) | payer MEDICARE, SELFPAY ==
--- NOTE | 2024-08-19 07:05 | CT_ITS ---
FINAL REPORT TECHNIQUE: Axial images were obtained of the lumbar spine by computed tomography. Coronal and sagittal reconstruction process performed. This study was performed with techniques to keep radiation doses as low as reasonably achievable (ALARA). Individualized dose reduction techniques using automated exposure control or adjustment of mA and/or kV according to the patient''s size were employed. CLINICAL HISTORY: LBP COMPARISON: 12/23/2021 FINDINGS: There is posterior fusion hardware bridging L4-5 and L5-S1. Interbody fusion graft is noted at L5-S1. Lumbar vertebrae show normal height. There is no malalignment. Stimulator leads enter the spinal canal at the L4-5 level. T12-L1: Unremarkable. L1-2: Moderate diffuse disc bulge. Moderate spinal canal compromise. Moderate bilateral neural foraminal narrowing. L2-3: Moderate diffuse disc bulge. Prominent right ligamentum flavum hypertrophy measuring up to 8 mm. Moderate to high-grade spinal canal compromise, particularly on the right. L3-4: Mild diffuse disc bulge. Prominent right ligamentum flavum hypertrophy. Moderate bilateral facet hypertrophy. [id number] bilateral neural foraminal narrowing. L4-5: Mild diffuse disc bulge. Mild bilateral neural foraminal narrowing. L5-S1: Unremarkable. IMPRESSION: Posterior and interbody fusion bridging L4-5 and L5-S1. Prominent ligamentum flavum hypertrophy on the right at L2-3 and L3-4 well seen on images 51 and 52 of series 3. Reviewed, Interpreted and Dictated by Melo Miner MD Transcribed by Nataly Rockwell Authenticated and [facility]
== END 2024-08-19 23:59 | disposition home or self-care (01) ==
LOC: RAD 06:59
PROVIDERS: PCP Family Medicine; Visit Provider Nurse Practitioner Family
DX: M43.26 Fusion of spine, lumbar region; M43.27 Fusion of spine, lumbosacral region; M24.28 Disorder of ligament, vertebrae
CPT/HCPCS: 72131

== ENCOUNTER 2024-10-17 08:47 | Day surgery (SDC) | payer MEDICARE, SELFPAY ==
--- NOTE | 2024-10-17 08:53 | P.HP_ITS ---
History of Present Illness *Admission Date: 10/17/24 *Reason for visit:: Intrathecal refill; DDD *History of present illness: Same [facility] Disclaimer: The information contained in this section may have been updated after the patient was seen, as this information can be updated by other users. Medical History History of chest pain Diabetes mellitus, type 2 Surgical History History of back surgery History of carpal tunnel release History of knee replacement Family History Other No significant family history Social History Smoking Status: Former smoker tobacco type: cigarettes second hand exposure: No alcohol intake: never current occupational status: disabled Travel in the last 8 weeks?: None household members: spouse housing: house current occupational exposures/hazards: No caffeine: Yes Have you lived/traveled outside US in past 30 days?: No Contact w/someone who lives/traveled outside US past 30 days?: No Exposure to someone with infectious disease in past 14 days?: No Do you have a fever (greater than 100.4 F or 38 C)?: No Have you tested positive for COVID-19?: No Exposed to someone with COVID-19 in past 14 days?: No Do you have a sore throat?: No Do you have a cough?: No Do you have any weakness?: No Do you have any diarrhea?: No Are you experiencing any unusual bleeding?: No Do you have any muscle aches/pain?: No Do you have any abdominal pain?: No Are you experiencing loss of taste or smell?: No Other Medical History Have you received the Flu Vaccine for this season: No Have you received the Pneumonia Vaccine: No Review of Systems Review of Systems Review of systems:: pertinent systems reviewed and negative unless documented below Review of systems (narrative): Review of Systems: General: No recent weight changes, no fever, no sleep disturbances Respiratory: No cough, no shortness of air, no recurring pulmonary infections Cardiovascular/peripheral vascular: No chest pain, no palpitations, no edema, no shortness of breath Gastrointestinal: No new onset incontinence, normal bowel movements reported Genitourinary: No new onset incontinence Musculoskeletal: Chronic back pain Psychiatric: [Normal mood/affect] Neurological: [Denies weakness in extremities], [denies balance issues] Meds Home Medications and Allergies Home Medications ?Medication ?Instructions ?Recorded ?Confirmed ?Type aspirin 325 mg tablet 325 mg PO DAILY heart health 12/10/18 08/01/24 History furosemide 40 mg tablet 40 mg PO DAILYP PRN fluid re tention 12/10/18 08/01/24 History levothyroxine 88 mcg tablet 88 mcg PO DAILY hypothyroi d 12/10/18 08/01/24 History lisinopril 40 mg tablet 40 mg PO DAILY blood pressur e 12/10/18 08/01/24 History omeprazole 20 mg capsule,delayed 20 mg PO DAILY GERD 0 12/10/18 08/01/24 History release vitamin B comp and C no.3 15 mg-10 1 each PO DAILY Sup plement 12/10/18 08/01/24 History mg-50 mg-5 mg-300 mg capsule metoprolol succinate 25 mg 25 mg PO DAILY heart rate 0 10/20/19 08/01/24 History tablet,extended release 24 hr sitagliptin phosphate 100 mg tablet 50 mg PO DAILY Alisha betes 10/20/19 08/01/24 History gabapentin 300 mg capsule 300 mg PO DAILY Pain 1 08/01/24 History ondansetron 4 mg disintegrating 4 mg PO Q8H PRN nausea and 03/09/22 08/01/24 Rx tablet vomiting #30 tabs testosterone cypionate 200 mg/mL 200 mg IM DIRECTED SUPPLIMENT 03/23/22 08/01/24 History intramuscular oil fluoxetine 10 mg capsule 10 mg PO DAILY MOOD 05/19/22 08/01/24 History New Prescriptions to Start Prescriptions: Allergies Allergy/AdvReac Type Severity Reaction Status Date / Time penicillin G (PENICILLIN G) Allergy Unknown UNKNOWN Verified 05/16/24 11:21 Exam Constitutional Constitutional: no acute distress *Routine HEENT Exam Head: Present normocephalic and atraumatic Eye: Present PERRL ENT: Present mucous membranes moist *Routine Neck Exam Neck: Present supple *Routine Respiratory Exam Respiratory: Present CTA bilaterally *Routine Cardiovascular Exam Cardiovascular: Present RRR *Routine Abdominal Exam Abdominal: Present soft *Routine Rectal Exam Rectal:: deferred *Routine Genitalia Exam Genitalia:: deferred Routine Back/Spine/Pelvis Exam Back/Spine: Present pain with flexion *Routine Skin Exam Skin: Present intact, dry and warm *Routine Neurological Exam Neurological: Present alert and oriented X3 Routine Psychiatric Exam Psychiatric: Present normal affect and normal thought process Assessment and Plan *Assessment and plan (1) Lumbar radiculopathy: Status: Acute Category: Medical Code(s): M54.16 - Radiculopathy, lumbar region (2) Degenerative disc disease: Status: Acute Category: Medical Plan Patient has been instructed to contact the clinic with any concerns before the next appointment. Dr. Cabello has reviewed this note and agrees with this plan of care. This note was dictated using voice recognition software and make contain errors or omissions. All injections are used with Lidocaine, Bupivacaine and dexamethasone. Occasionally urine drug screen is needed to verify patient's compliance with our office pain contract. This is ordered based off specific treatments related to chronic pain with the potential to abuse certain medications.
[2024-10-17 08:56] VITALS: BP 182/67; PULSE 109; RESP 18; O2SAT 96; BMI 37.3
--- NOTE | 2024-10-17 09:09 | EXP.PAIN.PRO ---
Procedure Date: 10/17/24 Time: 09:24 Anesthesiologist:: Kamryn Klein APRN Complications:: None Pre-procedure Diagnosis:: Degenerative disc disease of lumbar spine with lumbar radiculopathy symptoms, pain syndrome Post-procedure Diagnosis:: Same Indications for Procedure:: Patient is a pleasant 59-year-old male who presents today for intrathecal refill and reprogram. Today he rates his pain a 7 out of 10. He states he continues to have falls due to his legs just giving out. Patient does not believe it is pump related. He just states there is a lot of heaviness across his back and causes a lot of of significant disability. Patient has previously had surgery on his back with a fusion however it has been years. We are also going to review over his updated CT imaging results. Patient is currently managed with morphine 25 mg/mL with a daily dose of 1.782 mg/day. He denies any side effects. His [place] has been reviewed and is appropriate. Physical Exam: General: Alert and oriented x3, no acute distress, pleasant and cooperative Lungs: Respirations even and unlabored, symmetrical chest expansion Eyes: PERRL Musculoskeletal: Flexion and extension of lumbar [spine] somewhat guarded secondary to pain, [antalgic gait noted] Neurological: Speech clear, no gross sensory deficit Procedure Details:: Informed consent was obtained and the risk and benefits of the procedure were explained to the patient. The patient had noninvasive monitoring placed including noninvasive blood pressure cuff and pulse oximeter. Patient's pump was interrogated. The area over the pump was cleansed with chlorhexidine as a cleansing solution. In sterile fashion the pump was accessed with a 22-gauge needle. Approximately 14 mls of the pump solution was removed and discarded appropriately. The pump was then refilled with 20 mL's of morphine 25 mg/mL. The needle was withdrawn and a bandage was placed over the puncture site. The infusion rate was reprogrammed and continued at 1.782 mg/day. The patient tolerated well with no complication. Plan and Disposition:: Patient tolerated the procedure well with no complications and was discharged neurologically intact. I did review over with the patient regarding his updated lumbar CT. I do have concerns over his moderate to high-grade narrowing in the spinal canal at the L2-L3 level. I will refer him to Dr. Parkinson who he does believe previously did a surgery for him. I did also discuss with him that his symptoms are consistent with spinal stenosis with neurogenic claudication symptoms and in future he may benefit from a minimally invasive lumbar decompression procedure. Patient did have multilevel ligamentum flavum hypertrophy. We will follow-up in future. Patient will return to clinic on or before their next intrathecal refill date. We will see the patient back in the clinic at the next intrathecal refill. Patient has been instructed to contact the clinic with any concerns before the next appointment. Dr. Cabello has reviewed this note and agrees with this plan of care. This note was dictated using voice recognition software and make contain errors or omissions. -- It Is medically necessary for this patient to continue to have their intrathecal pump refilled at regular intervals. This patient had an intrathecal pain pump implanted after meeting criteria of chronic intractable pain for greater than 3 months and failing conservative treatments. Patient has committed and been compliant to the treatment plan and all planned follow up care. Since implantation of the intrathecal pain pump, the patient has had decreased pain and been more functional. Oral medications have been reduced including intake of oral opioids. Patient continues to do well with intrathecal therapy with decrease in pain symptoms and increase in functional status. Stopping intrathecal medications can lead to life threatening withdrawal, seizures, cardiac arrest, severe pain, and possible . Pumps that are not refilled at regular intervals can be damages and cause and need for replacement. We continually titrate dose and concentration to optimize pain relief and function. We are limited in concentration for certain drugs to safely deliver medications through the pump and stay within the recommendations from the Polyanalgesic Consensus Committee Guidelines. Depending on dose and concentration these pumps may need to be refilled sooner than 3 months as we titrate. A UDS is needed to verify patient's compliance with our office pain contract. This is ordered based off specific treatments related to chronic pain with the potential to abuse certain medications.
[2024-10-17 09:10] VITALS: BP 152/80; PULSE 107; RESP 18; O2SAT 95
[2024-10-17 09:27] VITALS: BP 138/86; PULSE 100; RESP 18; O2SAT 94
== END 2024-10-17 09:27 | disposition home or self-care (01) ==
PROVIDERS: PCP Family Medicine; Visit Provider Nurse Practitioner Family
DX: Z45.1 Encounter for adjustment and management of infusion pump (principal); M51.16 Intervertebral disc disorders with radiculopathy, lumbar region; E11.9 Type 2 diabetes mellitus without complications; Z87.891 Personal history of nicotine dependence; Z88.0 Allergy status to penicillin
CPT/HCPCS: 95991